=== PATIENT | female | born 1975 | race Hispanic/Latino ===

== ENCOUNTER 2019-03-06 18:46 | Observation (INO) | payer OTHER ==
--- OUTSIDE RECORDS SUMMARY | 2019-03-06 18:47 | XMS REPORT ---
:1975 Author Organization [employer] Care Team Providers Name Role Phone Medina, Na Provider Role Unavailable Allergies No Known Allergies Problems Problem Type Condition Code Onset Dates Condition Status Problem Adult BMI 50.0-59.9 kg/sq m Z68.43 Active Problem Insomnia, unspecified type G47.00 Active Problem Frequent PVCs I49.3 Active Problem Essential hypertension I10 Active Problem Vitamin D deficiency E55.9 Active Problem Shifting sleep-work schedule, G47.26 Active affecting sleep Problem Adult general medical exam Z00.00 Active Problem Obesity, morbid, BMI 50 or higher E66.01 Active Problem Seasonal allergies J30.2 Active Problem Irregular heart beat I49.9 Active Medications No Known Medications Results No Known Results Summary Purpose eClinicalWorks Submission
--- OUTSIDE RECORDS SUMMARY | 2019-03-06 18:47 | XMS REPORT ---
:1975 [facility] [address] [place] [address] Care Team Providers Name Role Phone ASYA BLACKMON Unavailable Unavailable Problems This patient has no known problems. Allergies, Adverse Reactions, Alerts This patient has no known allergies or adverse reactions. Medications This patient has no known medications. Results Test Description Test Time Test Comments Text Results Atomic Results Result Comments PET, CARDIAC 2018-10-13 Reason for FINAL REPORT PATIENT ID: PERFUSION 16:50:00 exam:->ischemic workup [id number] PROCEDURE: MULTIPLE for at least moderate Rest/Stress MYOCARDIAL STUDIES, REST pretest prob CADReason PERFUSION PET with AND STRESS for exam:->discharge regadenoson\XA9\CPT CODE: pending [id number]: chest pain, elevated troponin, obesity BMI=42.6HISTORY: Cardiac risk factors: obesity. Other cardiovascular history: No reported CAD. Recent cardiac symptoms: chest pain.PROTOCOL: Limited low-dose CT imaging was performed for attenuation correction. 39.8 mCi of Rb-82 chloride was injected iv at rest, and gated PET (positron emission tomography) images were obtained. Subsequently, 39.8 mCi of Rb-82 chloride was injected iv at expected peak pharmacologic effect, and gated PET images were obtained. PRELIMINARY STRESS TEST DATA FROM NONINVASIVE CARDIOLOGY: Pharmacologic stress was by 10-second iv infusion of 0.4 mg of regadenoson. Radiotracer was injected 30 seconds after start of stress. Heart rate was 79 beats/min at rest and 114 beats/min (64% of MPHR) at tracer injection. BP was 142/86 mmHg at rest and 144/79 mmHg at tracer injection. Stress was stopped for predetermined endpoint. The patient experienced dyspnea; treatment was not required. Preliminary ECG evaluation was not available from Cardiology at the time of this report. (Final ECG interpretation and other stress and monitoring data are reported separately by Cardiology.) IMAGING FINDINGS: Study quality is good. Images obtained after rest and stress injections show normal LV activity. LV and RV volumes appear normal. Gated images obtained at rest and with stress show normal LV wall motion and thickening. LVEF at rest is >70%. LVEF at stress is >70%. IMPRESSION: 1. Normal study. 2. Appropriate pharmacologic stress. 3. Normal myocardial perfusion. 4. Normal resting LV function. No deterioration with pharmacologic stress. 5. Normal extracardiac tracer distribution. CT images show irregular low density in the liver, consistent with fatty liver. 6. No prior study. NONINVASIVE RISK STRATIFICATION (per JACC.2012;59(9):857-881.) The above findings are considered low risk (<1% annual mortality rate) based on the following criterion:- Normal myocardial perfusion at rest or with stress. Signed: Martha Dickinson [facility]ort Verified Date/Time: 10/13/2018 16:50:50 GLOBIN A1C 2018-10-13 10:13:00 Test Item Value Reference Range Comments HEMOGLOBIN A1C (BEAKER) (test vqkv=601) 5.7 % 4.3-6.1 LIPID [id number] 09:53:00 Test Item Value Reference Range Comments TRIGLYCERIDES (BEAKER) (test 245 mg/dL Specimen slightly hemolyzed eutk=757) CHOLESTEROL (BEAKER) (test 172 mg/dL Specimen slightly hemolyzed gsqp=735) HDL CHOLESTEROL (BEAKER) (test 37 mg/dL xzqt=779) LDL CHOLESTEROL CALCULATED 86 mg/dL (BEAKER) (test mavz=545) Triglyceride Reference Range: Low Risk <150 Borderline 150- 199 High Risk 200-499 Very High Risk >=500Cholesterol Reference Range: Low Risk <200 Borderline 200-239 High Risk > 240HDL Cholesterol Reference Range: Low Risk >=60 High Risk <40LDL Cholesterol Reference Range: Optimal <100 Near Optimal 100-129 Borderline 130-159 High 160-189 Very High >=[id number] 07:09:00 Test Item Value Reference Range Comments LIPASE (BEAKER) (test tazx=331) 41 U/L 8-78 [id number] 07:09:00 Test Item Value Reference Range Comments AMYLASE (BEAKER) (test tege=752) 34 U/L 25-125 BASIC METABOLIC [id number] 07:09:00 Test Item Value Reference Range Comments SODIUM (BEAKER) (test 137 meq/L 136-145 bsiw=354) POTASSIUM (BEAKER) (test 4.1 meq/L 3.5-5.1 jgro=766) CHLORIDE (BEAKER) (test 106 meq/L 98-107 eisy=476) CO2 (BEAKER) (test 26 meq/L 22-29 uxgj=126) BLOOD UREA NITROGEN 10 mg/dL 7-21 (BEAKER) (test amtm=980) CREATININE (BEAKER) (test 0.75 mg/dL 0.57-1.25 ltdu=015) GLUCOSE RANDOM (BEAKER) 102 mg/dL 70-105 (test pzsh=014) CALCIUM (BEAKER) (test 8.6 mg/dL 8.4-10.2 keye=258) EGFR (BEAKER) (test 84 mL/min/1.73 sq m ESTIMATED GFR IS NOT lmer=2763) ACCURATE CREATININE CLEARANCE IN PREDICTING GLOMERULAR FILTRATION RATE. ESTIMATED GFR IS NOT APPLICABLE FOR DIALYSIS PATIENTS. HEPATIC FUNCTION [id number] 07:09:00 Test Item Value Reference Range Comments TOTAL PROTEIN (BEAKER) (test ibuy=706) 6.8 gm/dL 6.0-8.3 ALBUMIN (BEAKER) (test ycnf=0298) 3.6 g/dL 3.5-5.0 BILIRUBIN TOTAL (BEAKER) (test qhzx=343) 0.6 mg/dL 0.2-1.2 BILIRUBIN DIRECT (BEAKER) (test fhgc=986) 0.2 mg/dL 0.1-0.5 ALKALINE PHOSPHATASE (BEAKER) (test frkt=986) 78 U/L 40-150 AST (SGOT) (BEAKER) (test hznh=645) 16 U/L 5-34 ALT (SGPT) (BEAKER) (test kium=125) 20 U/L 6-55 CBC W/PLT COUNT & AUTO [id number] 04:57:00 Test Item Value Reference Range Comments WHITE BLOOD CELL COUNT (BEAKER) (test walb=195) 6.7 K/ L 3.5-10.5 RED BLOOD CELL COUNT (BEAKER) (test bdlx=190) 5.40 M/ L 3.93-5.22 HEMOGLOBIN (BEAKER) (test utxm=593) 15.3 GM/DL 11.2-15.7 HEMATOCRIT (BEAKER) (test rnyh=794) 48.5 % 34.1-44.9 MEAN CORPUSCULAR VOLUME (BEAKER) (test syct=802) 89.8 fL 79.4-94.8 MEAN CORPUSCULAR HEMOGLOBIN (BEAKER) (test 28.3 pg 25.6-32.2 odzv=442) MEAN CORPUSCULAR HEMOGLOBIN CONC (BEAKER) (test 31.5 GM/DL 32.2-35.5 gzof=804) RED CELL DISTRIBUTION WIDTH (BEAKER) (test 13.5 % 11.7-14.4 seun=387) PLATELET COUNT (BEAKER) (test mtdc=183) 230 K/CU MM 150-450 MEAN PLATELET VOLUME (BEAKER) (test bicg=865) 11.7 fL 9.4-12.3 NUCLEATED RED BLOOD CELLS (BEAKER) (test 0 /100 WBC 0-0 cine=055) NEUTROPHILS RELATIVE PERCENT (BEAKER) (test 51 % ivsf=481) LYMPHOCYTES RELATIVE PERCENT (BEAKER) (test 36 % efuv=967) MONOCYTES RELATIVE PERCENT (BEAKER) (test 9 % sskw=481) EOSINOPHILS RELATIVE PERCENT (BEAKER) (test 4 % vuut=936) BASOPHILS RELATIVE PERCENT (BEAKER) (test 1 % twzd=341) NEUTROPHILS ABSOLUTE COUNT (BEAKER) (test 3.39 K/ L 1.56-6.13 lvau=381) LYMPHOCYTES ABSOLUTE COUNT (BEAKER) (test 2.40 K/ L 1.18-3.74 cyik=947) MONOCYTES ABSOLUTE COUNT (BEAKER) (test 0.57 K/ L 0.24-0.36 mwax=230) EOSINOPHILS ABSOLUTE COUNT (BEAKER) (test 0.25 K/ L 0.04-0.36 ddcs=548) BASOPHILS ABSOLUTE COUNT (BEAKER) (test 0.05 K/ L 0.01-0.08 ydkm=139) IMMATURE GRANULOCYTES-RELATIVE PERCENT (BEAKER) 0 % 0-1 (test vdrh=1310) TSH/FREE T4 IF [id number] 14:43:00 Test Item Value Reference Range Comments THYROID STIMULATING HORMONE (BEAKER) (test 3.19 uIU/mL 0.35-4.94 yosw=464) TROPONIN [id number] 12:27:00 Test Item Value Reference Range Comments TROPONIN I (BEAKER) (test ourn=284) < ng/mL 0.00-0.03 Troponin I (TnI) levels must be interpreted in the context of the presenting symptoms and the clinical findings. Elevated TnI levels indicate myocardial damage, but are not specific for ischemic heart disease. Elevated TnI levels are seen in patients with other cardiac conditions (including myocarditis and congestive heart failure), and slight TnI elevations occur in patients with other conditions, including sepsis, renal failure, acidosis, acute neurological disease, and persistent tachyarrhythmia.TROPONIN [id number] 05:37:00 Test Item Value Reference Range Comments TROPONIN I (BEAKER) (test dcmu=185) 0.05 ng/mL 0.00-0.03 Troponin I (TnI) levels must be interpreted in the context of the presenting symptoms and the clinical findings. Elevated TnI levels indicate myocardial damage, but are not specific for ischemic heart disease. Elevated TnI levels are seen in patients with other cardiac conditions (including myocarditis and congestive heart failure), and slight TnI elevations occur in patients with other conditions, including sepsis, renal failure, acidosis, acute neurological disease, and persistent tachyarrhythmia.CT, CTA, [id number] 04:23:00Reason for exam:->CHEST PAINIs the patient ?->NoWhat is the patient's sedation requirement?->No SedationFINAL REPORT CT, CTA , CHEST INDICATION: CHEST PAINChest pain, back pain COMPARISON: None TECHNIQUE: Arterial phase imaging of the chest was obtained during dynamic infusion of intravenous contrast for purposes of CT angiography. Precontrast images were also obtained. Coronal andsagittal reformatted images provided. 3-D volumetric reformatted images were created at a dedicated workstation. DOSE REDUCTION: Dose modulation, iterative reconstruction, and/or weight-based adjustment of the mA/kV was utilized to reduce the radiation dose to as low as reasonably achievable. VASCULARFINDINGS:Aortic caliber: Normal.Wolf and lumen: No hematoma or luminal flap.Great vessel origins: No origin stenosis.Atherosclerosis:None.Pulmonary trunk and arteries: Normal calibers. Aortic diameters measure:2.7 cm at the ascending aorta at the level of the pulmonary trunk, 2.5 cm at the mid arch,2.0 cm at the descending aorta at the level of the pulmonary trunk, and1.8 cm at the hiatus. NONVASCULAR FINDINGS: Chest:Lungs and pleura: Bilateral lower lobe dependent atelectasis. No pleural effusions. No suspicious pulmonary nodules. No pneumothorax. Central airways: Patent.Mediastinum: No mediastinal or hilar adenopathy. The thyroid gland is unremarkable. Esophagus is normal in caliber.Heart and pericardium: Normal. Regional skeleton: No acute abnormalities. Additional findings: No suspicious subcutaneous nodules or fluid collections. No axillary adenopathy. Visualized abdomen: Hepatic steatosis otherwise visualized abdomen is unremarkable. IMPRESSION: Normal course and caliber of the thoracic aorta. No evidence for mural hematoma or dissection. No aneurysmal dilation. No acute intrathoracicabnormality. Hepatic steatosis. Signed: Spike Cooper [facility] Verified Date/Time: 10/12/2018 04:23:50 PREGNANCY SCREEN, [id number] 03:14:00 Test Item Value Reference Range Comments TEST URINE (BEAKER) (test twbm=716) Negative TROPONIN [id number] 02:22:00 Test Item Value Reference Range Comments TROPONIN I (BEAKER) (test tubw=655) < ng/mL 0.00-0.03 Troponin I (TnI) levels must be interpreted in the context of the presenting symptoms and the clinical findings. Elevated TnI levels indicate myocardial damage, but are not specific for ischemic heart disease. Elevated TnI levels are seen in patients with other cardiac conditions (including myocarditis and congestive heart failure), and slight TnI elevations occur in patients with other conditions, including sepsis, renal failure, acidosis, acute neurological disease, and persistent tachyarrhythmia.BASIC METABOLIC [id number] 02:16:00 Test Item Value Reference Range Comments SODIUM (BEAKER) (test 138 meq/L 136-145 lhat=616) POTASSIUM (BEAKER) (test 3.9 meq/L 3.5-5.1 Specimen slightly imjg=700) hemolyzed CHLORIDE (BEAKER) (test 104 meq/L 98-107 lgfa=825) CO2 (BEAKER) (test 23 meq/L 22-29 zztt=179) BLOOD UREA NITROGEN 12 mg/dL 7-21 (BEAKER) (test tmbl=320) CREATININE (BEAKER) (test 0.87 mg/dL 0.57-1.25 Specimen slightly vjum=466) hemolyzed GLUCOSE RANDOM (BEAKER) 96 mg/dL 70-105 (test excb=694) CALCIUM (BEAKER) (test 8.8 mg/dL 8.4-10.2 kanr=083) EGFR (BEAKER) (test 71 mL/min/1.73 sq m ESTIMATED GFR IS NOT kgom=3563) ACCURATE CREATININE CLEARANCE IN PREDICTING GLOMERULAR FILTRATION RATE. ESTIMATED GFR IS NOT APPLICABLE FOR DIALYSIS PATIENTS. HEPATIC FUNCTION [id number] 02:16:00 Test Item Value Reference Range Comments TOTAL PROTEIN (BEAKER) (test 7.7 gm/dL 6.0-8.3 Specimen slightly hemolyzed vwbg=092) ALBUMIN (BEAKER) (test 3.8 g/dL 3.5-5.0 Specimen slightly hemolyzed obpy=3782) BILIRUBIN TOTAL (BEAKER) (test 0.3 mg/dL 0.2-1.2 Specimen slightly hemolyzed itfi=766) BILIRUBIN DIRECT (BEAKER) (test 0.1 mg/dL 0.1-0.5 Specimen slightly hemolyzed alpc=185) ALKALINE PHOSPHATASE (BEAKER) 86 U/L 40-150 (test azza=431) AST (SGOT) (BEAKER) (test 16 U/L 5-34 Specimen slightly hemolyzed jbcu=071) ALT (SGPT) (BEAKER) (test 22 U/L 6-55 Specimen slightly hemolyzed yeny=379) CBC W/PLT COUNT & AUTO [id number] 01:54:00 Test Item Value Reference Range Comments WHITE BLOOD CELL COUNT (BEAKER) (test exkd=293) 10.5 K/ L 3.5-10.5 RED BLOOD CELL COUNT (BEAKER) (test xcck=434) 5.24 M/ L 3.93-5.22 HEMOGLOBIN (BEAKER) (test qypu=144) 15.0 GM/DL 11.2-15.7 HEMATOCRIT (BEAKER) (test djdr=161) 45.8 % 34.1-44.9 MEAN CORPUSCULAR VOLUME (BEAKER) (test pqbb=049) 87.4 fL 79.4-94.8 MEAN CORPUSCULAR HEMOGLOBIN (BEAKER) (test 28.6 pg 25.6-32.2 knii=898) MEAN CORPUSCULAR HEMOGLOBIN CONC (BEAKER) (test 32.8 GM/DL 32.2-35.5 milu=795) RED CELL DISTRIBUTION WIDTH (BEAKER) (test 13.5 % 11.7-14.4 rpve=311) PLATELET COUNT (BEAKER) (test skhc=141) 232 K/CU MM 150-450 MEAN PLATELET VOLUME (BEAKER) (test ixif=167) 12.1 fL 9.4-12.3 NUCLEATED RED BLOOD CELLS (BEAKER) (test 0 /100 WBC 0-0 hprg=710) NEUTROPHILS RELATIVE PERCENT (BEAKER) (test 62 % mgve=473) LYMPHOCYTES RELATIVE PERCENT (BEAKER) (test 26 % jryg=324) MONOCYTES RELATIVE PERCENT (BEAKER) (test 9 % gdtc=094) EOSINOPHILS RELATIVE PERCENT (BEAKER) (test 3 % iqem=253) BASOPHILS RELATIVE PERCENT (BEAKER) (test 1 % eqjq=360) NEUTROPHILS ABSOLUTE COUNT (BEAKER) (test 6.49 K/ L 1.56-6.13 ldke=870) LYMPHOCYTES ABSOLUTE COUNT (BEAKER) (test 2.78 K/ L 1.18-3.74 imwq=629) MONOCYTES ABSOLUTE COUNT (BEAKER) (test 0.89 K/ L 0.24-0.36 kzlt=894) EOSINOPHILS ABSOLUTE COUNT (BEAKER) (test 0.29 K/ L 0.04-0.36 bont=128) BASOPHILS ABSOLUTE COUNT (BEAKER) (test 0.05 K/ L 0.01-0.08 ufxy=165) IMMATURE GRANULOCYTES-RELATIVE PERCENT (BEAKER) 0 % 0-1 (test hhpz=2470) RAD, CHEST, PA OR AP, 1 [id number] 00:50:00Reason for exam:->CHEST PAINIs the patient ?->NoShould this be performed at the bedside?-> NoFINAL REPORT INDICATION: CHEST PAIN COMPARISON: None TECHNIQUE: Single frontal view of the chest. FINDINGS: Lungs and pleura: Clear lungs. No effusion.Heart and mediastinum: Normal heart size. Unremarkable mediastinal contours.Osseous structures: No acute abnormality.Other: None. IMPRESSION: No acute intrathoracic abnormality. Signed: Karissa Cochran [facility] Verified Date/Time:10/12/2018 00:50:00 Reading Location: [address] Neuro Reading Room 12: 50 AM
[2019-03-06 19:12] LABS: Absolute Lymphocytes (CBC) 2.7 K/uL (0.7-4.9); Basophils % 1.2 % (0-1.3); Hematocrit 46.5 % (36.0-45.0); Lymphocytes % 27.7 % (15.3-44.8); MPV 10.3 fL (7.6-11.3); RBC Red Blood Cell Count 5.39 M/uL (3.86-4.86)
[2019-03-06 19:17] LABS: Protime INR 0.96
[2019-03-06] MEDS ORDERED: MAGNE/ALUM HYDROXD 30 ML UCUP ONE (19:28)
[2019-03-06] MEDS ORDERED: LIDOCAINE VISCOUS 2% SOLN 15 ML UDC ONE (19:28)
[2019-03-06 19:32] LABS: ALT/SGPT 26 U/L (12-78); AST/SGOT 14 U/L (15-37); Albumin 3.3 g/dL (3.4-5.0); Alkaline Phosphatase 86 U/L (45-117); BUN Blood Urea Nitrogen 8 mg/dL (7-18); Bicarbonate 28 mmol/L (21-32); Bilirubin Direct 0.1 mg/dL (0-0.2); Bilirubin Total 0.4 mg/dL (0.2-1.0); Glucose Level 107 mg/dL (74-106); Magnesium 2.1 mg/dL (1.8-2.4); NT PRO-BNP 52 pg/mL (<125); Potassium 3.8 mmol/L (3.5-5.1); Protein, Total 7.2 g/dL (6.4-8.2); Sodium Level 139 mmol/L (136-145); Troponin (Emerg Dept Use Only) < 0.02 ng/mL (0.0-0.045)
--- NOTE | 2019-03-06 20:06 | ER ---
Nurse's Notes [facility] Name: Teresa Cuevas Age: 43 yrs Sex: Female : 1975 Arrival Date: 03/06/2019 Time: 18:48 Bed 7 Private MD: Diagnosis: Other chest pain;Essential (primary) hypertension;Dyspnea Presentation: 03/06 19:00 Presenting complaint: Patient states: she has been having chest pain since yesterday bb but it worsened today at approx 1600 pt has SOB and a couple of episodes of which she felt light-headed. Pt is worried because her father of [place] at 43. Transition of care: patient was not received from another setting of care. Onset of symptoms was March 05, 2019. Risk Assessment: Do you want to hurt yourself or someone else? Patient reports no desire to harm self or others. Initial Sepsis Screen: Does the patient meet any 2 criteria? No. Patient's initial sepsis screen is negative. Does the patient have a suspected source of infection? No. Patient's initial sepsis screen is negative. Care prior to arrival: None. 19:00 Method Of Arrival: Ambulatory bb 19:00 Acuity: VICTORINA 3 bb Triage Assessment: 19:17 General: Appears in no apparent distress. uncomfortable, Behavior is calm, cooperative. bb Pain: Complains of pain in chest Pain currently is 5 out of 10 on a pain scale. Neuro: Level of Consciousness is awake, alert, obeys commands, Oriented to person, place, time, situation. Cardiovascular: Heart tones S1 S2 present Capillary refill < 3 seconds Patient's skin is warm and dry. Rhythm is sinus rhythm. Respiratory: Respiratory effort is even, unlabored, Respiratory pattern is regular. GI: No deficits noted. No signs and/or symptoms were reported involving the gastrointestinal system. Derm: Skin is pink, warm \T\ dry. Musculoskeletal: Circulation, motion, and sensation intact. 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 - Social history:: Smoking status: Patient/guardian denies using tobacco, Patient/guardian denies using alcohol, street drugs. - Ebola Screening: : No symptoms or risks identified at this time. - Family history:: not pertinent. Screenin:21 Abuse screen: Denies threats or abuse. Nutritional screening: No deficits noted. bb Tuberculosis screening: No symptoms or risk factors identified. Fall Risk None identified. Assessment: 19:21 Reassessment: No changes from previously documented assessment. see triage assessment. bb 19:31 General: Appears in no apparent distress. uncomfortable, Behavior is calm, cooperative, jd3 appropriate for age. Pain: Complains of pain in chest Quality of pain is described as aching, pressure. Neuro: Level of Consciousness is awake, alert, obeys commands, Oriented to person, place, time, situation. Cardiovascular: Capillary refill < 3 seconds Patient's skin is warm and dry. Rhythm is sinus rhythm. Respiratory: Airway is patent Respiratory effort is even, unlabored, Respiratory pattern is regular, symmetrical, Denies cough, labored breathing. GI: No signs and/or symptoms were reported involving the gastrointestinal system. Patient currently denies diarrhea, nausea, vomiting. : No signs and/or symptoms were reported regarding the genitourinary system. EENT: No signs and/or symptoms were reported regarding the EENT system. Derm: Skin is intact, Skin is dry, Skin is normal, Skin temperature is warm. Musculoskeletal: Circulation, motion, and sensation intact. Range of motion: intact in all extremities. 20:28 Reassessment: Patient appears in no apparent distress at this time. No changes from jd3 previously documented assessment. Patient and/or family updated on plan of care and expected duration. Pain level reassessed. Patient is alert, oriented x 3, equal unlabored respirations, skin warm/dry/pink. hospitalist at bedside discussing plan of care. 21:19 Reassessment: Patient appears in no apparent distress at this time. No changes from jd3 previously documented assessment. Patient and/or family updated on plan of care and expected duration. Pain level reassessed. Patient is alert, oriented x 3, equal unlabored respirations, skin warm/dry/pink. 22:15 Reassessment: attempted report, reported that the nurse was busy. jd3 22:40 Reassessment: Patient appears in no apparent distress at this time. Patient and/or jd3 family updated on plan of care and expected duration. Pain level reassessed. Patient is alert, oriented x 3, equal unlabored respirations, skin warm/dry/pink. awaiting nurse to be free for report Patient states feeling better. 23:03 Reassessment: report called to Mami SARGENT for ICU room 8. bb Vital Signs: 19:17 BP 160 / 94; Pulse 74; Resp 18 S; Pulse Ox 99% on R/A; Pain 5/10; bb 20:29 Pulse 77; Resp 20 S; Pulse Ox 100% on R/A; jd3 21:19 BP 127 / 79; Pulse 78; Resp 16 S; Pulse Ox 98% on R/A; jd3 22:41 BP 144 / 86; Pulse 73; Resp 18 S; Pulse Ox 98% on R/A; jd3 ED Course: 18:48 Patient arrived in ED. iw 19:00 EKG done, by ED staff. em1 19:00 Initial lab(s) drawn, by me, sent to lab. Inserted saline lock: 20 gauge in right bb antecubital area, using aseptic technique. Blood collected. 19:00 Arm band placed on Patient placed in an exam room, on a stretcher, on machine shorthand teacher, bb on pulse oximetry. EKG completed in triage. Results shown to MD. 19:02 Yamilet Goodson, ROSETTA is Primary Nurse. bb 19:17 Triage completed. bb 19:18 XRAY Chest (1 view) In Process Unspecified. EDMS 19:21 Patient has correct armband on for positive identification. Placed in gown. Bed in low bb position. Call light in reach. Side rails up X 1. material expediter on. Pulse ox on. NIBP on. 19:23 Bill Blanchard MD is Attending Physician. toy 20:03 Sherman Tomlin MD is Hospitalizing Provider. toy 20:44 CT Chest For PE Angio In Process Unspecified. EDMS 23:04 No provider procedures requiring assistance completed. Patient admitted, IV remains in bb place. Administered Medications: 19:20 Drug: GI Cocktail without - (Maalox Suspension 30 ml, Lidocaine Liquid 2 % 15 jd3 ml) Route: PO; 20:20 Follow up: Response: No adverse reaction jd3 20:22 Drug: Aspirin Chewable Tablet 162 mg Route: PO; jd3 21:21 Follow up: Response: No adverse reaction jd3 20: Drug: Lovenox 100 mg Route: Sub-Q; Site: abdomen; jd3 21:21 Follow up: Response: No adverse reaction jd3 20: Drug: Pepcid 20 mg Route: IVP; Site: right antecubital; jd3 21:21 Follow up: Response: No adverse reaction jd3 Outcome: 20:04 Decision to Hospitalize by Provider. toy 23:04 Admitted to ICU accompanied by [facility], via stretcher, room 8, with chart, Report called bb to Mami SARGENT 23:04 Condition: stable 23:08 Patient left the ED. jd3 Signatures: Dispatcher [employer] EDMS Bill Blanchard MD MD cha Ballard, Brenda, RN RN Dolly George, RN James Wesley Abhishek Helm RN RN jd3 Corrections: (The following items were deleted from the chart) 23:08 22:41 Pulse 73bpm; Resp 18bpm; Spontaneous; Pulse Ox 98% RA; jd3 jd3
--- NOTE | 2019-03-06 20:06 | EDPHYS ---
Physician Documentation [facility] Name: Teresa Cuevas Age: 43 yrs Sex: Female : 1975 Arrival Date: 03/06/2019 Time: 18:48 Bed 7 Private MD: ED Physician Bill Blanchard HPI: 03/06 20:00 This 43 yrs old Female presents to ER via Ambulatory with complaints of chest toy pain and sob. 20:00 The patient has shortness of breath at rest, with light activity. Onset: The toy symptoms/episode began/occurred just prior to arrival, today. Duration: The symptoms are continuous, and are steadily getting worse. The patient's shortness of breath is aggravated by nothing, is alleviated by nothing. The patient or guardian reports chest pain that is located primarily in the anterior chest wall, bilaterally. Onset: just prior to arrival, today. The pain does not radiate. 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 - Social history:: Smoking status: Patient/guardian denies using tobacco, Patient/guardian denies using alcohol, street drugs. - Ebola Screening: : No symptoms or risks identified at this time. - Family history:: not pertinent. ROS: 20:00 Constitutional: Negative for fever, chills, and weight loss, Eyes: Negative for injury, toy pain, redness, and discharge, ENT: Negative for injury, pain, and discharge, Neck: Negative for injury, pain, and swelling, Abdomen/GI: Negative for abdominal pain, nausea, vomiting, diarrhea, and constipation, Back: Negative for injury and pain, : Negative for injury, bleeding, discharge, and swelling, MS/Extremity: Negative for injury and deformity, Skin: Negative for injury, rash, and discoloration, Neuro: Negative for headache, weakness, numbness, tingling, and seizure, Psych: Negative for depression, anxiety, suicide ideation, homicidal ideation, and hallucinations, Allergy/Immunology: Negative for hives, rash, and allergies, Endocrine: Negative for neck swelling, polydipsia, polyuria, polyphagia, and marked weight changes, Hematologic/Lymphatic: Negative for swollen nodes, abnormal bleeding, and unusual bruising. 20:00 Cardiovascular: Positive for chest pain. 20:00 Respiratory: Positive for shortness of breath, at rest. Exam: 20:00 Constitutional: This is a well developed, well nourished patient who is awake, alert, toy and in no acute distress. Head/Face: Normocephalic, atraumatic. Eyes: Pupils equal round and reactive to light, extra-ocular motions intact. Lids and lashes normal. Conjunctiva and sclera are non-icteric and not injected. Cornea within normal limits. Periorbital areas with no swelling, redness, or edema. ENT: Nares patent. No nasal discharge, no septal abnormalities noted. Tympanic membranes are normal and external auditory canals are clear. Oropharynx with no redness, swelling, or masses, exudates, or evidence of obstruction, uvula midline. Mucous membranes moist. Neck: Trachea midline, no thyromegaly or masses palpated, and no cervical lymphadenopathy. Supple, full range of motion without nuchal rigidity, or vertebral point tenderness. No Meningismus. Chest/axilla: Normal chest wall appearance and motion. Nontender with no deformity. No lesions are appreciated. Cardiovascular: Regular rate and rhythm with a normal S1 and S2. No gallops, murmurs, or rubs. Normal PMI, no JVD. No pulse deficits. Respiratory: Lungs have equal breath sounds bilaterally, clear to auscultation and percussion. No rales, rhonchi or wheezes noted. No increased work of breathing, no retractions or nasal flaring. Abdomen/GI: Soft, non-tender, with normal bowel sounds. No distension or tympany. No guarding or rebound. No evidence of tenderness throughout. Back: No spinal tenderness. No costovertebral tenderness. Full range of motion. Female : Normal external genitalia. Skin: Warm, dry with normal turgor. Normal color with no rashes, no lesions, and no evidence of cellulitis. MS/ Extremity: Pulses equal, no cyanosis. Neurovascular intact. Full, normal range of motion. Neuro: Awake and alert, GCS 15, oriented to person, place, time, and situation. Cranial nerves II-XII grossly intact. Motor strength 5/5 in all extremities. Sensory grossly intact. Cerebellar exam normal. Normal gait. Psych: Awake, alert, with orientation to person, place and time. Behavior, mood, and affect are within normal limits. 20:00 Musculoskeletal/extremity: DVT Exam: No signs of deep vein thrombosis. no pain, no swelling, no tenderness, negative Homans' sign noted on exam, no appreciated bluish discoloration, no erythema, no increased warmth. Vital Signs: 19:17 BP 160 / 94; Pulse 74; Resp 18 S; Pulse Ox 99% on R/A; Pain 5/10; bb 20:29 Pulse 77; Resp 20 S; Pulse Ox 100% on R/A; jd3 21:19 BP 127 / 79; Pulse 78; Resp 16 S; Pulse Ox 98% on R/A; jd3 22:41 BP 144 / 86; Pulse 73; Resp 18 S; Pulse Ox 98% on R/A; jd3 MDM: 19:23 Patient medically screened. [facility] 20:03 Data reviewed: vital signs, nurses notes, lab test result(s), EKG, radiologic studies, [facility] CT scan, plain films. 03/06 19:01 Order name: Basic Metabolic Panel; Complete Time: 19:58 ar5 03/06 19:01 Order name: CBC with Diff; Complete Time: 19:58 ct5 03/06 19:01 Order name: LFT's; Complete Time: 19:58 ct5 03/06 19:01 Order name: Magnesium; Complete Time: 19:58 ct5 03/06 19:01 Order name: NT PRO-BNP; Complete Time: 19:58 ct5 03/06 19:01 Order name: PT-INR; Complete Time: 19:58 ct5 03/06 19:01 Order name: Troponin (emerg Dept Use Only); Complete Time: 19:58 ct5 03/06 20:38 Order name: Thyroid Stimulating Hormone EDMS 03/06 20:38 Order name: CBC with Automated Diff EDMS 03/06 20:38 Order name: CBC with Automated Diff EDMS 03/06 20:38 Order name: CKMB Creatine Kinase MB EDMS 03/06 20:39 Order name: CKMB Creatine Kinase MB EDMS 03/06 20:39 Order name: CKMB Creatine Kinase MB EDMS 03/06 20:39 Order name: CKMB Creatine Kinase MB [facility] 03/06 19:01 Order name: XRAY Chest (1 view); Complete Time: 20:30 [facility] 03/06 20:00 Order name: CT Chest For PE Angio [facility] 03/06 20:39 Order name: Comprehensive Metabolic Panel [facility] 03/06 20:39 Order name: Comprehensive Metabolic Panel [facility] 03/06 20:39 Order name: Lipid Profile [facility] 03/06 20:39 Order name: Lipid Profile [facility] 03/06 20:39 Order name: Magnesium [facility] 03/06 20:39 Order name: Magnesium [facility] 03/06 20:39 Order name: Phosphorus [facility] 03/06 20:39 Order name: Phosphorus [facility] 03/06 20:39 Order name: Troponin I [facility] 03/06 20:39 Order name: Troponin I [facility] 03/06 20:39 Order name: Troponin I [facility] 03/06 20:39 Order name: Troponin I [facility] 03/06 21:30 Order name: Troponin (emerg Dept Use Only) [facility] 03/06 19:01 Order name: EKG; Complete Time: 19:02 [facility] 03/06 19:01 Order name: Cardiac monitoring; Complete Time: 19:02 [facility] 03/06 19:01 Order name: EKG - Nurse/Tech; Complete Time: 19:02 [facility] 03/06 19:01 Order name: IV Saline Lock; Complete Time: 19:02 [facility] 03/06 19:01 Order name: Labs collected and sent; Complete Time: 19:02 [facility] 03/06 19:01 Order name: O2 Per Protocol; Complete Time: 19:02 [facility] 03/06 19:01 Order name: O2 Sat Monitoring; Complete Time: 19:02 [facility] 03/06 20:38 Order name: CONS Physician Consult [facility] 03/06 20:38 Order name: Heart Healthy EDIN Administered Medications: 19:20 Drug: GI Cocktail without - (Maalox Suspension 30 ml, Lidocaine Liquid 2 % 15 jd3 ml) Route: PO; 20:20 Follow up: Response: No adverse reaction jd3 20:22 Drug: Aspirin Chewable Tablet 162 mg Route: PO; jd3 21:21 Follow up: Response: No adverse reaction jd3 20:22 Drug: Lovenox 100 mg Route: Sub-Q; Site: abdomen; jd3 21:21 Follow up: Response: No adverse reaction jd3 20:22 Drug: Pepcid 20 mg Route: IVP; Site: right antecubital; jd3 21:21 Follow up: Response: No adverse reaction jd3 Disposition: 03/06/19 20:04 Hospitalization ordered by Sherman Tomlin for Observation. Preliminary diagnosis are Other chest pain, Essential (primary) hypertension, Dyspnea. - Bed requested for Intensive Care Unit. - Status is Observation. jd3 - Condition is Fair. - Problem is new. - Symptoms have improved. UTI on Admission? No Signatures: Dispatcher [employer] EDMS Bill Blanchard MD MD cha Ballard, Brenda RN Abhishek Marie RN RN jd3 Robles, Autumn ar5 Corrections: (The following items were deleted from the chart) 21:45 20:04 Hospitalization Ordered by Sherman Tomlin MD for Observation. Preliminary ar5 diagnosis is Other chest pain; Essential (primary) hypertension; Dyspnea. Bed requested for Telemetry/MedSurg (observation). Status is Observation. Condition is Fair. Problem is new. Symptoms have improved. UTI on Admission? No. toy 23:08 21:45 03/06/2019 20:04 Hospitalization Ordered by Sherman Tomlin MD for Observation. jd3 Preliminary diagnosis is Other chest pain; Essential (primary) hypertension; Dyspnea. Bed requested for Intensive Care Unit. Status is Observation. Condition is Fair. Problem is new. Symptoms have improved. UTI on Admission? No. ar5
--- NOTE | 2019-03-06 20:09 | RAD REPORT ---
EXAM DESCRIPTION: RAD - Chest Single View - 03/06/2019 7:20 pm CLINICAL HISTORY: Chest pain COMPARISON: June 2013 TECHNIQUE: AP portable chest image was obtained 1917 hours . FINDINGS: Low lung volumes noted. No acute lung parenchymal process seen. Heart and vasculature are normal. No measurable pleural effusion and no pneumothorax. No acute bony abnormality seen. No acute aortic findings suspected. IMPRESSION: No acute cardiopulmonary process. No significant interval change.
[2019-03-06] MEDS ORDERED: ENOXAPARIN 100 MG/ML SYR SQ ONE (20:17)
[2019-03-06] MEDS ORDERED: ASPIRIN 81 MG CHEWABLE TABLET ONE (20:17)
[2019-03-06] MEDS ORDERED: FAMOTIDINE 20 MG/2 ML VIAL IV ONE (20:17)
[2019-03-06] MEDS ORDERED: ONDANSETRON 4 MG/2 ML VIAL IV PRN (20:33)
[2019-03-06] MEDS ORDERED: ACETAMINOPHEN 500 MG TAB PO PRN (20:33)
[2019-03-06] MEDS ORDERED: MAGNES/ALUMIN/SIMET 30ML UCUP PO PRN (20:36)
--- NOTE | 2019-03-06 20:44 | P.HP ---
Certification for Inpatient Patient admitted to: Observation With expected LOS: <2 Midnights Patient will require the following post-hospital care: None Practitioner: I am a practitioner with admitting privileges, knowledge of patient current condition, hospital course, and medical plan of care. Services: Services provided to patient in accordance with Admission requirements found in Title 42 Section 412.3 of the Code of Federal Regulations Patient History Date of Service: 03/06/19 Reason for admission: Chest pain History of Present Illness: 43 year old female with past medical history of hypertension came to ER with chest pain which has been going on for the last 1 day. The pain is located retrosternally , with no radiation , pressure-like symptom , 3/10 in severity. Denies any diaphoresis. No nausea vomiting or diarrhea. No changes with movements or exertion . No fever no chills. Patient had a stress test and echocardiogram done a month ago and was normal has a strong family history of CAD with father having had bypass surgery at age of 43. Patient is being admitted for further management of chest pain to rule out ACS Allergies No Known Allergies Allergy (Verified 08/07/12 07:52) Home medications list reviewed: Yes Home Medications: Folic Acid [Folic Acid*] 1 PO DAILY 08/07/12 Pnv Comb.no58/Iron Bisgly/FA [ Capsule] 1 PO DAILY 08/07/12 Ibuprofen [Motrin] 600 mg PO Q6HR PRN #0 tablet 08/09/12 - Past Medical/Surgical History Past Medical History: Reviewed- Non-Contributory -: Hypertension Past Surgical History: Reviewed- Non-Contributory -: [facility] - section 07/30/2009 - Family History Family History: Reviewed- Non-Contributory - Family History Father -: Heart disease - Social History Smoking Status: Never smoker Alcohol use: No CD- Drugs: No Caffeine use: Yes Review of Systems 10-point ROS is otherwise unremarkable General: Unremarkable Cardiovascular: Chest Pain Physical Examination - Vital Signs Temperature: 98.1 F Blood Pressure: 156/88 Pulse: 76 Respirations: 18 - Physical Exam General: Alert, In no apparent distress, Oriented x3 HEENT: Atraumatic, Normocephalic Neck: Supple, 2+ carotid pulse no bruit Respiratory: Clear to auscultation bilaterally, Normal air movement Cardiovascular: Normal pulses, Regular rate/rhythm Capillary refill: <2 Seconds Gastrointestinal: Soft and benign, W/out hepatosplenomegaly Musculoskeletal: No clubbing, No swelling Integumentary: No rashes, No breakdown Neurological: Normal speech, Normal strength at 5/5 x4 extr Lymphatics: No axilla or inguinal lymphadenopathy Urinary: Other (No Bladder distention) External genitalia: Deferred Rectal: Deferred - Studies Laboratory Data (last 24 hrs) 03/06/19 19:00: PT 11.3, INR 0.96 03/06/19 19:00: WBC 9.7, Hgb 15.3 H, Hct 46.5 H, Plt Count 204 03/06/19 19:00: Sodium 139, Potassium 3.8, BUN 8, Creatinine 1.08, Glucose 107 H , Magnesium 2.1, Total Bilirubin 0.4, AST 14 L, ALT 26, Alkaline Phosphatase 86 Assessment and Plan - Problems (Diagnosis) (1) Chest pain Current Visit: Yes Status: Acute (2) Hypertension Current Visit: Yes Status: Chronic - Plan Chest pain to rule out ACS Hypertension Family history of CAD Plan Monitor under telemetry Trend cardiac enzymes Cardiology consult Patient had a stress test and an echocardiogram 4 months ago which was normal Continue home medications and titrate as needed Antihypertensives were monitored and titrated start on PPI empirically GI/DVT prophylaxis - Advance Directives Does patient have a Living Will: No Does patient have a Durable POA for Healthcare: No Time Spent Managing Pts Care (In Minutes): 43
[2019-03-06] MEDS ORDERED: ATORVASTATIN 10 MG TAB PO SCH (21:00)
--- NOTE | 2019-03-06 21:21 | RAD REPORT ---
EXAM DESCRIPTION: CT - Chest For Pe Angio - 03/06/2019 8:43 pm CLINICAL HISTORY: Cough;Chest pain COMPARISON: Chest Single View dated 03/06/2019 TECHNIQUE: Dynamically enhanced 3 mm thick images of the chest were obtained during administration o f approximately 150mL Isovue 370 IV contrast. Coronal and oblique MIP reconstruction images were gene rated and reviewed. Exam utilizes a protocol to evaluate the pulmonary arterial tree. All CT scans are performed using dose optimization technique as appropriate and may include automated exposure control or mA/KV adjustment according to patient size. FINDINGS: No pulmonary emboli are identified. The aorta as imaged shows no acute or suspicious finding. No pericardial thickening or effusion. No infiltrate or mass in the lung parenchyma. No pleural effusion or pleural thickening. Minimal atel ectasis changes present. No mediastinal or hilar suspicious masses. No chest wall masses or abnormal axillary lymphadenopathy. IMPRESSION: No pulmonary emboli identified. No other significant or suspicious findings.
[2019-03-06 21:27] LABS: CKMB Creatine Kinase MB < 1.0 ng/mL (0.3-3.6); Troponin I < 0.02 ng/mL (0.0-0.045)
[2019-03-06] MEDS: MORPHINE 2 MG/ML SYR IV PRN (23:50)
[2019-03-07 00:18] VITALS: O2SAT 100; BMI 53.3
[2019-03-07 04:55] LABS: Absolute Lymphocytes (CBC) 2.5 K/uL (0.7-4.9); Basophils % 0.6 % (0-1.3); Hematocrit 43.7 % (36.0-45.0); MPV 10.5 fL (7.6-11.3); RBC Red Blood Cell Count 5.02 M/uL (3.86-4.86)
[2019-03-07 05:32] LABS: ALT/SGPT 23 U/L (12-78); AST/SGOT 12 U/L (15-37); Alkaline Phosphatase 75 U/L (45-117); BUN Blood Urea Nitrogen 10 mg/dL (7-18); Bicarbonate 27 mmol/L (21-32); Bilirubin Total 0.4 mg/dL (0.2-1.0); CKMB Creatine Kinase MB < 1.0 ng/mL (0.3-3.6); Glucose Level 111 mg/dL (74-106); HDL Cholesterol 32 mg/dL (40-60); LDL Cholesterol, Calculated ND (<130); Magnesium 2.2 mg/dL (1.8-2.4); Potassium 3.7 mmol/L (3.5-5.1); Protein, Total 6.5 g/dL (6.4-8.2); Sodium Level 139 mmol/L (136-145); Troponin I < 0.02 ng/mL (0.0-0.045)
[2019-03-07 05:51] LABS: LDL, Direct 97 mg/dL (100-129)
[2019-03-07] MEDS ORDERED: PANTOPRAZOLE 40MG TABLET PO SCH (06:30)
[2019-03-07] MEDS: MORPHINE 2 MG/ML SYR IV PRN (08:30)
[2019-03-07] MEDS ORDERED: POTASSIUM CL SA 10 MEQ TAB PO ONE (09:00)
[2019-03-07] MEDS ORDERED: ASPIRIN EC 81 MG TAB PO SCH (09:00)
[2019-03-07] MEDS ORDERED: NITROGLYCERIN 0.4 MG/TAB SL PRN (10:56)
[2019-03-07] MEDS ORDERED: MORPHINE 2 MG/ML SYR IV PRN (10:57)
[2019-03-07 13:37] VITALS: TEMP 98.4
[2019-03-07 13:48] LABS: CKMB Creatine Kinase MB < 1.0 ng/mL (0.3-3.6); Troponin I < 0.02 ng/mL (0.0-0.045)
--- NOTE | 2019-03-07 13:48 | EKG ---
Test Date: 2019-03-06 Test Time: 18:49:38 Water Safety Instructor: WILLA MEASUREMENT RESULTS: Intervals: Rate: 76 MT: 154 QRSD: 80 QT: 384 QTc: 432 [place]: P: 56 MT: 154 QRS: 22 T: 47 INTERPRETIVE STATEMENTS: Normal sinus rhythm Normal ECG Compared to ECG 03/24/2009 20:23:34 No significant changes Electronically Signed On 03-07-19 13:46:31 STRADDLE BUG OPERATOR by Osmel Agrawal
[2019-03-07 15:05] VITALS: BP 130/81
--- NOTE | 2019-03-08 00:27 | CON ---
Date of Consultation: 03/07/2019 Ms. Cuevas is 43, was admitted with chest pain to Dr. Easton's service on 03/06/2019. I saw the patie nt on 03/07/2019. Reason For Consultation: Chest pain. History Of Present Illness: Ms. Cuevas is 43, has a history of hypertension for which she takes Lopr essor, has a very strong family history of heart disease. She has dyslipidemia. Her triglyceride is 463. She has obesity. She weighs 291 pounds, came in with atypical chest pain, mid epigastric, mid sternal, radiating to the back, lasting for hours, occasionally with exertion, sometimes without exer tion. Has had negative cardiac workup a few months ago as far as echo and stress test, but continues to have pain. Denied nausea, vomiting, diaphoresis, PND, orthopnea, pedal edema, palpitations, or s yncope. She is very concerned about her chest pain because of her strong family history. Her family had a heart attacks in their 40s. Past Medical History: As stated above. Allergies: NONE. Review of Systems: Negative. Social History: Negative. Family History: Strongly positive for CAD. Home Medications: Include Lopressor. Physical Examination: General: Ms. Cuevas weighed 291 pounds, very pleasant, no acute distress. Vital Signs: Stable. Afebrile. HEENT: Negative. Neck: Supple without any bruit, lymphadenopathy, JVD, or thyromegaly. Chest: Clear to auscultation and percussion. Cardiac: Exam revealed a regular rhythm and rate. No murmurs, gallops, or rubs. Abdomen: Benign. Extremities: Revealed no clubbing, cyanosis, or edema. Diagnostic Data: All within normal limit. Impression And Plan: 1.Hypertension. 2.Dyslipidemia, high triglyceride. She may need to be on Tricor. 3.Obesity. 4.Strong family history. 5.Atypical chest pain, still concerning, although she has ruled out with negative cardiac workup, in cluding echoes and stress test. I think if Ms. Cuevas continues to have pain, I think she needs to h ave a catheterization to define her coronary anatomy. This was suggested to her. For now I think antoine loja needs to be on proton pump inhibitors and see if that works first. She otherwise can go home and I will see her in the office in the near future. NB/MODL Voice ID: [id number] Report ID: [id number]
--- NOTE | 2019-03-08 04:04 | DS ---
Date of Discharge: 03/07/2019 Space Engineer: Dr. Agrawal with Cardiology. Procedures: None. Admitting Diagnoses: 1.Chest pain. 2.Essential hypertension. Discharge Diagnoses: 1.Atypical chest pain, acute coronary syndrome ruled out. 2.Essential hypertension. 3.Hypertriglyceridemia. 4.Morbid obesity, BMI 53. Hospital Course: Patient is a 43-year-old female, past medical history of hypertension, morbid obesi ty, comes in with chest pain. Patient was admitted due to her risk factors and strong family history of heart disease, father having bypass surgery at the age of 43. Patient was admitted for further e valuation. Her cardiac enzymes were negative x3. ACS was ruled out. Her cholesterol panel showed e levated triglyceride levels at 463. LDL was below 100. White blood cell count was normal. She had a mildly elevated hemoglobin of 15.3, likely due to dehydration. Imaging studies including chest x-r ay and CT scan PE protocol did not show any suspicious findings. There was no PE. EKG did not show any acute changes. Patient was seen by Dr. Agrawal and was cleared for discharge to follow up as an outpatient. Patient was counseled regarding her triglyceride levels as well as her weight. She will likely benefit from bariatric surgery due to BMI greater than 40 for weight loss. Patient does repo rt some symptoms of acid reflux disease; however, states that [id number]-[id number] proton pump inhibitors have not improved her condition. However, she has not taken these on a chronic basis, never had an EGD. I recommend patient to follow up with a GI doctor and have endoscopy done to rule out esophagit is or any other GI symptomatology, which may mimic chest pain. Patient denies any anxiety. Patient has had a stress test previously done at [facility], which was negative. Patient was then cleared fo r discharge. She was sent home in a stable condition. Activity: As tolerated. Medications: As per medication reconciliation list. Instructions: Return to ER for worsening condition. Followup: Follow up with primary care physician in 2-3 days. Follow up with household cook, Dr. Lamar mccarthy, in 2 weeks. Diet: Heart healthy. Physical Examination: General: Awake, alert, oriented x3, not in any acute distress. CV: S1, S2. Respiratory: Moving air well bilaterally. Abdomen: Soft, nontender, nondistended. Positive bowel sounds. Extremities: No clubbing, cyanosis, or edema. Neuro: Nonfocal. SA/MODL Voice ID: [id number] Report ID: [id number]
[2019-03-08] MEDS ORDERED: METOPROLOL TAR 50 MG TAB PO SCH (09:00)
--- NOTE | 2019-03-09 11:49 | EKG ---
Test Date: 2019-03-07 Test Time: 11:06:39 Gem Setter: STEPHANIE MEASUREMENT RESULTS: Intervals: Rate: 92 WY: 146 QRSD: 76 QT: 380 QTc: 469 [place]: P: 45 WY: 146 QRS: 18 T: 39 INTERPRETIVE STATEMENTS: Normal sinus rhythm Cannot rule out Anterior infarct, age undetermined Abnormal ECG Compared to ECG 03/06/2019 18:49:38 Myocardial infarct finding now present Electronically Signed On 03-09-19 11:42:43 CAR AND YARD SUPERVISOR by Osmel Agrawal
== END 2019-03-07 15:20 | disposition home or self-care (01) ==
LOC: ER 18:46 → ERHOLD 20:34 → 3RD-ICU 22:58
PROVIDERS: ADMIT Family Medicine; ATTEND Family Medicine
DX: R07.89 Other chest pain (principal); I10 Essential (primary) hypertension; E78.1 Pure hyperglyceridemia; E66.01 Morbid (severe) obesity due to excess calories; Z68.43 Body mass index [BMI] 50.0-59.9, adult
CPT/HCPCS: 93005 ×2; 85025 ×2; 80048; 36415 ×2; 83721; 83735 ×2; 84100; 85610; 80061; 80076; 84443; 84484 ×4; 82553 ×3; 80053; 83880; 71275; 71045; 96372; 96374; 99285; Q9967; J1650; J2270 ×2; G0378 ×2

== ENCOUNTER 2020-02-16 01:02 | Emergency (ER) | payer OTHER ==
--- OUTSIDE RECORDS SUMMARY | 2020-02-16 01:04 | XMS REPORT | Clinical Summary ---
:1975 Author Organization [facility] Address [address] [place] [id number] Care Team Providers Name Role Phone Unavailable Primary Care Provider Unavailable Allergies No Known Allergies Medications Medication Sig Dispensed Refills Start Date End Date Status metoprolol (TOPROL-XL) Take 50 mg by 0 Active 50 MG 24 hr tablet mouth daily. Active Problems Problem Noted Date Elevated troponin 10/12/2018 Chest pain, unspecified type 10/12/2018 Social History Tobacco Use Types Packs/Day Years Used Date Never Smoker Smokeless Tobacco: Never Used Alcohol Use Drinks/Week oz/Week Comments No Alcohol Habits Answer Date Recorded How often do you have a drink containing alcohol? Never 10/11/2018 How many drinks containing alcohol do you have on a typical Not asked day when you are drinking? How often do you have six or more drinks on one occasion? No t asked Sex Assigned at Date Recorded Not on file Last Filed Vital Signs Not on file Plan of Treatment Health Maintenance Due Date Last Done Comments CERVICAL CANCER SCREENING PAP ONLY (Age 21-65) 1996 INFLUENZA VACCINE (#1) 2019 LIPID PANEL 10/13/2021 10/13/2018 Results Not on fileafter 02/15/2019 Insurance Payer Benefit Plan / Subscriber ID Effective Dates Phone Addre ss Type Group CIGNA - MGD CIGNA [id number] 2018-Present HMO/POS CARE HMO/POS/OPEN ACCESS Advance Directives For more information, please contact: [phone] Code Status Date Activated Date Inactivated Comments Full Code 10/12/2018 9:38 AM 10/13/2018 8:54 PM This code status was determined by: Patient
--- OUTSIDE RECORDS SUMMARY | 2020-02-16 01:05 | XMS REPORT | Continuity of Care Document ---
:1975 Author Organization [facility] t Address [address] [place] [address] Care Team Providers Name Role Phone LISETTE BLACKMON Attending Clinician Unavailable ANNEL RUDD Admitting Clinician Unavailable Problems Condition Condition Condition Status Onset Resolution Last Treating Co mments Source Name Details Category Date Date Treatment Clinician Date Elevated Elevated Disease [facility] Chest Chest Disease Active [facility] pain, pain, 10-12 [facility] - unspecifie unspecifie 00:00: Me dical d type d type 00 Center Adult BMI Adult BMI Problem Active [facility] 50.0-59.9 50.0-59.9 Luke s - kg/sq m kg/sq m [facility] ent Clinics Insomnia, Insomnia, Problem Active [facility] unspecifie unspecifie Devorah kes - d type d type [facility] Clinics Frequent Frequent Problem Active [facility] PVCs PVCs [facility] - [facility] ent Clinics Essential Essential Problem Active [facility] hypertensi hypertensi Devorah kes - on on [facility] ent [facility] Vitamin D Vitamin D Problem Active [facility] deficiency deficiency Devorah kes - [facility] ent [facility] Shifting Shifting Problem Active [facility] sleep-work sleep-work Devorah kes - schedule, schedule, Eliel joleen affecting affecting l sleep sleep [facility] Adult Adult Problem Active [facility] general general [facility] - medical medical [facility]oria exam exam l [facility] Obesity, Obesity, Problem Active [facility] morbid, morbid, [facility] - BMI 50 or BMI 50 or Eliel joleen higher higher l [facility] Seasonal Seasonal Problem Active [facility] allergies allergies Luke [facility] - [facility] Irregular Irregular Problem Active [facility] heart beat heart beat [facility] Allergies, Adverse Reactions, Alerts This patient has no known allergies or adverse reactions. Social History Social Habit Start Date Stop Date Quantity Comments Source History [facility] - Alcohol Std Drinks [facility] History [facility] - Alcohol Binge Medical Naveen ter Sex Assigned At [facility] St Devorah kes [facility] Tobacco use and 2018-10-11 2018-10-[address] [facility] Devorah kes - exposure 00:00:00 00:00:00 [facility] Alcohol intake 2018-10-11 2018-10-[address] [facility] - 00:00:00 00:00:00 non-drinker of Medical Ce nter alcohol (finding) History [facility] 2018-10-11 2018-10-[address] [facility] - Alcohol Frequency 00:00:00 00:00:00 [facility] Smoking Status Start Date Stop Date Source Never smoker [facility] Medications Ordered Filled Start Stop Current Ordering Indication Dosage Frequency Signature Comments Components Source Medication Medication Date Date Medication? Clinician (SIG) Name Name metoprolol Yes 50mg QD Take [address] (TOPROL-XL) 10-13 by mouth Luke s - 50 MG 24 hr 18:54: daily. Medi yvrose tablet [address] [place] [address] Metoprolol Metoprolol Yes Na [place] [address] Succinate Succinate [facility] - ER ER [facility] [place] Procedures This patient has no known procedures. Plan of Care Planned Activity Planned Date Details Comments Source Future Scheduled 2021-10-[address] [facility] - Test 00:00:00 (procedure) [code = [facility] [id number]] Future Scheduled 2019-11-[address] [facility] - Test 00:00:00 (#1) [code = [facility] INFLUENZA VACCINE (#1)] Future Scheduled [address] [facility] - Test 00:00:00 malignant neoplasm Medical C enter of cervix (procedure) [code = 173035698] Encounters Start End Encounter Admission Attending Care Care Encounter Source Date/Time Date/Time Type Type Clinicians Facility Department ID 2019-06-26 2019-06-26 Outpatient Sherman Whitakert [id number] [address] 12:21:00 12:21:00 [facility] 2019-04-10 2019-04-10 Outpatient Sherman Whitakert [id number] 09:40:00 09:40:00 [facility] 2018-11-05 2018-11-05 Outpatient Sherman Whitakert [id number] 13:37:00 13:37:00 [facility] 2018-09-03 2018-09-03 Outpatient Sherman Whitakert [id number] 16:20:00 16:20:00 [facility] Results Test Description Test Time Test Comments Results Result [facility] e Comments PET, CARDIAC 2018-10-13 Reason for FINAL REPORT PATIENT PERFUSION MULTIPLE 16:50:00 exam:->ischemic ID: [id number] STUDIES, REST AND workup for at PROCEDURE: STRESS least moderate Rest/Stress pretest prob MYOCARDIAL PERFUSION CADReason for PET with exam:->discharg regadenoson\XA9\CPT e pending CODE: [id number]: chest pain, elevated troponin, obesity BMI=42.6HISTORY: Cardiac [...] No prior study. NONINVASIVE RISK STRATIFICATION (per JACC.2012;59(9):857- 881.) The above findings are considered low risk (<1% annual mortality rate) based on the following criterion:- Normal myocardial perfusion at rest or with stress. Signed: Martha Dickinson [facility] Verified Date/Time: 10/13/2018 16:50:50 GLOBIN A1C 2018-10-13 10:13:00 Test Item Value Reference Range Interpretation Comme nts HEMOGLOBIN A1C ([place]) (test code = 368) 5.7 % 4.3-6.1 LIPID [id number] 09:53:00 Test Item Value Reference Range Interpretation Comments TRIGLYCERIDES (Broadband VoiceAKER) 245 mg/dL Speci men slightly (test code = 540) hemolyzed CHOLESTEROL (Broadband VoiceAKER) 172 mg/dL Specime n slightly (test code = 631) hemolyzed HDL CHOLESTEROL (Broadband VoiceAKER) 37 mg/dL (test code = 976) LDL CHOLESTEROL 86 mg/dL CALCULATED ([place]) (test code = 633) Triglyceride Reference Range: Low Risk <150 Borderline 150-199 High Risk 200-499 Very High Risk >=500Cholesterol Reference Range: Low Risk <200 Borderline 200-239 High Risk >240HDL Cholesterol Reference Range: Low Risk >=60 High Risk <40LDL Cholesterol Reference Range: Optimal <100 Near Optimal 100-129 Borderline 130-159 High 160-189 Very High [id number] 07:09:00 Test Item Value Reference Range Interpretation Comments LIPASE (BEAKER) (test code = 749) 41 U/L 8-78 [id number] 07:09:00 Test Item Value Reference Range Interpretation Comments AMYLASE (BEAKER) (test code = 349) 34 U/L 25-125 BASIC METABOLIC [id number] 07:09:00 Test Item Value Reference Range Interpretation Comments SODIUM (BEAKER) 137 meq/L 136-145 (test code = 381) POTASSIUM (BEAKER) 4.1 meq/L 3.5-5.1 (test code = 379) CHLORIDE (BEAKER) 106 meq/L 98-107 (test code = 382) CO2 (BEAKER) (test 26 meq/L 22-29 code = 355) BLOOD UREA NITROGEN 10 mg/dL 7-21 (BEAKER) (test code = 354) CREATININE (BEAKER) 0.75 mg/dL 0.57-1.25 (test code = 358) GLUCOSE RANDOM 102 mg/dL 70-105 (BEAKER) (test code = 652) CALCIUM (BEAKER) 8.6 mg/dL 8.4-10.2 (test code = 697) EGFR (BEAKER) (test 84 mL/min/1.73 ESTIMA DALIA GFR IS code = 1092) sq m NOT ACCURATE CREATININE CLEARANCE IN PREDICTING GLOMERULAR FILTRATION RATE . ESTIMATED GFR I S NOT APPLICABLE FOR DIALYSIS PATIEN TS. HEPATIC FUNCTION [id number] 07:09:00 Test Item Value Reference Range Interpretation Comments TOTAL PROTEIN (BEAKER) (test code = 6.8 gm/dL 6.0-8.3 770) ALBUMIN (BEAKER) (test code = 1145) 3.6 g/dL 3.5-5.0 BILIRUBIN TOTAL (BEAKER) (test code 0.6 mg/dL 0.2-1.2 = 377) BILIRUBIN DIRECT (BEAKER) (test 0.2 mg/dL 0.1-0.5 code = 706) ALKALINE PHOSPHATASE (BEAKER) (test 78 U/L 40-150 code = 346) AST (SGOT) (BEAKER) (test code = 16 U/L 5-34 353) ALT (SGPT) (BEAKER) (test code = 20 U/L 6-55 347) CBC W/PLT COUNT & AUTO [id number] 04:57:00 Test Item Value Reference Range Interpretation Comments WHITE BLOOD CELL COUNT (BEAKER) 6.7 K/ L 3.5-10.5 (test code = 775) RED BLOOD CELL COUNT (BEAKER) 5.40 M/ L 3.93-5.22 H (test code = 761) HEMOGLOBIN (BEAKER) (test code = 15.3 GM/DL 11.2-15.7 410) HEMATOCRIT (BEAKER) (test code = 48.5 % 34.1-44.9 H 411) MEAN CORPUSCULAR VOLUME (BEAKER) 89.8 fL 79.4-94.8 (test code = 753) MEAN CORPUSCULAR HEMOGLOBIN 28.3 pg 25.6-32.2 (BEAKER) (test code = 751) MEAN CORPUSCULAR HEMOGLOBIN CONC 31.5 GM/DL 32.2-35.5 L (BEAKER) (test code = 752) RED CELL DISTRIBUTION WIDTH 13.5 % 11.7-14.4 (BEAKER) (test code = 412) PLATELET COUNT (BEAKER) (test 230 K/CU MM 150-450 code = 756) MEAN PLATELET VOLUME (BEAKER) 11.7 fL 9.4-12.3 (test code = 754) NUCLEATED RED BLOOD CELLS 0 /100 WBC 0-0 (BEAKER) (test code = 413) NEUTROPHILS RELATIVE PERCENT 51 % (BEAKER) (test code = 429) LYMPHOCYTES RELATIVE PERCENT 36 % (BEAKER) (test code = 430) MONOCYTES RELATIVE PERCENT 9 % (BEAKER) (test code = 431) EOSINOPHILS RELATIVE PERCENT 4 % (BEAKER) (test code = 432) BASOPHILS RELATIVE PERCENT 1 % (BEAKER) (test code = 437) NEUTROPHILS ABSOLUTE COUNT 3.39 K/ L 1.56-6.13 (BEAKER) (test code = 670) LYMPHOCYTES ABSOLUTE COUNT 2.40 K/ L 1.18-3.74 (BEAKER) (test code = 414) MONOCYTES ABSOLUTE COUNT (BEAKER) 0.57 K/ L 0.24-0.36 H (test code = 415) EOSINOPHILS ABSOLUTE COUNT 0.25 K/ L 0.04-0.36 (BEAKER) (test code = 416) BASOPHILS ABSOLUTE COUNT (BEAKER) 0.05 K/ L 0.01-0.08 (test code = 417) IMMATURE GRANULOCYTES-RELATIVE 0 % 0-1 PERCENT (BEAKER) (test code = 2801) TSH/FREE T4 IF [id number] 14:43:00 Test Item Value Reference Range Interpretation Comments THYROID STIMULATING HORMONE 3.19 uIU/mL 0.35-4.94 (BEAKER) (test code = 772) TROPONIN [id number] 12:27:00 Test Item Value Reference Range Interpretation Comments TROPONIN I (BEAKER) (test code = 397) < ng/mL 0.00-0.03 Troponin I (TnI) levels [...] acidosis, acute neurological disease, and persistent tachyarrhythmia.TROPONIN [id number] 05:37:00 Test Item Value Reference Range Interpretation Comments TROPONIN I (BEAKER) (test code = 0.05 ng/mL 0.00-0.03 H 397) Troponin I (TnI) levels must be interpreted [...] acute neurological disease, and persistent tachyarrhythmia.CT, CTA, [id number] 04:23:00Reason for exam:->CHEST PAINIs the patient ?->NoWhat is the patient's sedation requirement?->No SedationFINAL REPORT CT, CTA, CHEST INDICATION: CHEST PAINChest pain, back pain [...] trunk, and1.8 cm at the hiatus. NONVASCULAR FINDINGS:Chest:Lungs and pleura: Bilateral lower lobe dependent atelectasis. [...] acute intrathoracicabnormality. Hepatic steatosis. Signed: Spike Cooper [facility] Verified Date/Time: 10/12/2018 04:23:50 PREGNANCY SCREEN, URINE 2018-10-12 03:14:00 Test Item Value Reference Range Interpretation Comments TEST URINE (BEAKER) (test Negative code = 583) TROPONIN [id number] 02:22:00 Test Item Value Reference Range Interpretation Comments TROPONIN I (BEAKER) (test code = 397) < ng/mL 0.00-0.03 Troponin I (TnI) levels [...] acute neurological disease, and persistent tachyarrhythmia.BASIC METABOLIC [id number] 02:16:00 Test Item Value Reference Range Interpretation Comments SODIUM (BEAKER) 138 meq/L 136-145 (test code = 381) POTASSIUM (BEAKER) 3.9 meq/L 3.5-5.1 Specimen slightly (test code = 379) hemolyzed CHLORIDE (BEAKER) 104 meq/L 98-107 (test code = 382) CO2 (BEAKER) (test 23 meq/L 22-29 code = 355) BLOOD UREA NITROGEN 12 mg/dL 7-21 (BEAKER) (test code = 354) CREATININE (BEAKER) 0.87 mg/dL 0.57-1.25 Specimen slightly (test code = 358) hemolyzed GLUCOSE RANDOM 96 mg/dL 70-105 (BEAKER) (test code = 652) CALCIUM (BEAKER) 8.8 mg/dL 8.4-10.2 (test code = 697) EGFR (BEAKER) (test 71 mL/min/1.73 ESTIMA DALIA GFR IS code = 1092) sq m NOT ACCURATE CREATININE CLEARANCE IN PREDICTING GLOMERULAR FILTRATION RATE . ESTIMATED GFR I S NOT APPLICABLE FOR DIALYSIS PATIEN TS. HEPATIC FUNCTION [id number] 02:16:00 Test Item Value Reference Range Interpretation Comments TOTAL PROTEIN (BEAKER) 7.7 gm/dL 6.0-8.3 Speci men slightly (test code = 770) hemolyzed ALBUMIN (BEAKER) (test 3.8 g/dL 3.5-5.0 Speci men slightly code = 1145) hemolyzed BILIRUBIN TOTAL 0.3 mg/dL 0.2-1.2 Specimen sli ghtly (BEAKER) (test code = hemoly zed 377) BILIRUBIN DIRECT 0.1 mg/dL 0.1-0.5 Specimen sl ightly (BEAKER) (test code = hemoly zed 706) ALKALINE PHOSPHATASE 86 U/L 40-150 (BEAKER) (test code = 346) AST (SGOT) (BEAKER) 16 U/L 5-34 Specimen slightly (test code = 353) hemolyzed ALT (SGPT) (BEAKER) 22 U/L 6-55 Specimen slightly (test code = 347) hemolyzed CBC W/PLT COUNT & AUTO [id number] 01:54:00 Test Item Value Reference Range Interpretation Comments WHITE BLOOD CELL COUNT (BEAKER) 10.5 K/ L 3.5-10.5 (test code = 775) RED BLOOD CELL COUNT (BEAKER) 5.24 M/ L 3.93-5.22 H (test code = 761) HEMOGLOBIN (BEAKER) (test code = 15.0 GM/DL 11.2-15.7 410) HEMATOCRIT (BEAKER) (test code = 45.8 % 34.1-44.9 H 411) MEAN CORPUSCULAR VOLUME (BEAKER) 87.4 fL 79.4-94.8 (test code = 753) MEAN CORPUSCULAR HEMOGLOBIN 28.6 pg 25.6-32.2 (BEAKER) (test code = 751) MEAN CORPUSCULAR HEMOGLOBIN CONC 32.8 GM/DL 32.2-35.5 (BEAKER) (test code = 752) RED CELL DISTRIBUTION WIDTH 13.5 % 11.7-14.4 (BEAKER) (test code = 412) PLATELET COUNT (BEAKER) (test 232 K/CU MM 150-450 code = 756) MEAN PLATELET VOLUME (BEAKER) 12.1 fL 9.4-12.3 (test code = 754) NUCLEATED RED BLOOD CELLS 0 /100 WBC 0-0 (BEAKER) (test code = 413) NEUTROPHILS RELATIVE PERCENT 62 % (BEAKER) (test code = 429) LYMPHOCYTES RELATIVE PERCENT 26 % (BEAKER) (test code = 430) MONOCYTES RELATIVE PERCENT 9 % (BEAKER) (test code = 431) EOSINOPHILS RELATIVE PERCENT 3 % (BEAKER) (test code = 432) BASOPHILS RELATIVE PERCENT 1 % (BEAKER) (test code = 437) NEUTROPHILS ABSOLUTE COUNT 6.49 K/ L 1.56-6.13 H (BEAKER) (test code = 670) LYMPHOCYTES ABSOLUTE COUNT 2.78 K/ L 1.18-3.74 (BEAKER) (test code = 414) MONOCYTES ABSOLUTE COUNT (BEAKER) 0.89 K/ L 0.24-0.36 H (test code = 415) EOSINOPHILS ABSOLUTE COUNT 0.29 K/ L 0.04-0.36 (BEAKER) (test code = 416) BASOPHILS ABSOLUTE COUNT (BEAKER) 0.05 K/ L 0.01-0.08 (test code = 417) IMMATURE GRANULOCYTES-RELATIVE 0 % 0-1 PERCENT (BEAKER) (test code = 2801) RAD, CHEST, PA OR AP, 1 [id number] 00:50:00Reason for exam:->CHEST PAINIs the patient ?->NoShould this be performed at the bedside?->NoFINAL REPORT INDICATION: CHEST PAIN COMPARISON: None TECHNIQUE: Single frontal view of the chest. FINDINGS: Lungs and pleura: Clear lungs. No effusion.Heart and mediastinum: Normal heart size. Unremarkable mediastinal contours.Osseous structures: No acute abnormality.Other: None. IMPRESSION: No acute intrathoracic abnormality. Signed: Karissa Cochran [facility] Verified Date/Time:10/12/2018 00:50:00 Reading Location: [facility] C013V Neuro Reading Room
[2020-02-16 03:00] LABS: Absolute Lymphocytes (CBC) 1.8 K/uL (0.7-4.9); Basophils % 0.7 % (0-1.3); Hematocrit 41.8 % (36.0-45.0); Lymphocytes % 24.9 % (15.3-44.8); MPV 10.6 fL (7.6-11.3); RBC Red Blood Cell Count 4.89 M/uL (3.86-4.86)
[2020-02-16 03:01] LABS: Protime INR 0.94
[2020-02-16 03:15] LABS: ALT/SGPT 30 U/L (12-78); AST/SGOT 12 U/L (15-37); Albumin 3.2 g/dL (3.4-5.0); Alkaline Phosphatase 93 U/L (45-117); BUN Blood Urea Nitrogen 10 mg/dL (7-18); Bicarbonate 27 mmol/L (21-32); Bilirubin Direct < 0.1 mg/dL (0-0.2); Bilirubin Total 0.4 mg/dL (0.2-1.0); C-Reactive Protein 4.91 mg/L (<3.00); Glucose Level 125 mg/dL (74-106); Magnesium 2.3 mg/dL (1.8-2.4); Protein, Total 6.9 g/dL (6.4-8.2); Sodium Level 140 mmol/L (136-145); Troponin (Emerg Dept Use Only) < 0.02 ng/mL (0.0-0.045)
[2020-02-16 03:34] LABS: NT PRO-BNP < 5 pg/mL (<125)
--- NOTE | 2020-02-16 04:04 | ER ---
Nurse's Notes [facility] Name: Teresa Cuevas Age: 44 yrs Sex: Female : 1975 Arrival Date: 02/16/2020 Time: 01:12 Bed 2 Private MD: Diagnosis: Dyspnea Presentation: 02/15 01:14 Chief complaint: Patient states: Chest pain that radiates to left arm with nausea. Pt tl1 states she has not felt good for the past week with shortness of breath. Blood pressure medication was changed 3 days ago from lopressor to cardizem. Coronavirus screen: Client denies travel out of the [place] in the last 14 days. At this time, the client does not indicate any symptoms associated with coronavirus-19. Ebola Screen: Patient negative for fever greater than or equal to 101.5 degrees Fahrenheit, and additional compatible Ebola Virus Disease symptoms Patient denies exposure to infectious person. Patient denies travel to an Ebola-affected area in the 21 days before illness onset. Initial Sepsis Screen: Does the patient meet any 2 criteria? HR > 90 bpm. Does the patient have a suspected source of infection? No. Patient's initial sepsis screen is negative. Risk Assessment: Do you want to hurt yourself or someone else? Patient reports no desire to harm self or others. Onset of symptoms was February 16, 2020. 01:14 Method Of Arrival: Ambulatory tl1 01:14 Acuity: VICTORINA 3 tl1 Historical: - Allergies: 01:20 No Known Allergies; tl1 - Home Meds: 01:20 Cardizem CD 120 mg Oral cp24 1 cap once daily [Active]; losartan 25 mg oral tab 1 tab tl1 once daily [Active]; - PMHx: 01:20 Hypertension; tl1 - Immunization history:: Adult Immunizations up to date. - Social history:: Smoking status: Patient denies any tobacco usage or history of. Patient/guardian denies using alcohol, street drugs. Screenin:49 Abuse screen: Denies threats or abuse. Denies injuries from another. Nutritional lp1 screening: No deficits noted. Tuberculosis screening: No symptoms or risk factors identified. Fall Risk None identified. Assessment: 01:30 General: Appears in no apparent distress. Behavior is appropriate for age. Pain: lp1 Complains of pain in chest Pain does not radiate. Pain began gradually. Neuro: Level of Consciousness is awake, alert, obeys commands, Oriented to person, place, time, situation. Cardiovascular: Patient's skin is warm and dry. Rhythm is sinus rhythm. Respiratory: Respiratory effort is even, unlabored, Respiratory pattern is regular. GI: Abdomen is non-distended. : No signs and/or symptoms were reported regarding the genitourinary system. EENT: No signs and/or symptoms were reported regarding the EENT system. Derm: Skin is pink, warm \T\ dry. Musculoskeletal: No deficits noted. 02:18 Reassessment: Patient returned from CT. lp1 03:30 Reassessment: Patient appears in no apparent distress at this time. Patient is alert, lp1 oriented x 3, equal unlabored respirations, skin warm/dry/pink. Patient denies pain at this time. Patient states feeling better. Patient states symptoms have improved. Vital Signs: 01:14 BP 160 / 92; Pulse 100; Resp 20; Temp 98(O); Pulse Ox 100% ; Weight 122.47 kg; Height 5 tl1 ft. 1 in. (154.94 cm); Pain 7/10; 01:30 BP 150 / 77; Pulse 87; Resp 19; Pulse Ox 99% on R/A; lp1 02:23 BP 136 / 62; Pulse 80; Resp 18; Pulse Ox 100% on R/A; lp1 03:00 BP 116 / 77; Pulse 75; Resp 15; Pulse Ox 100% on R/A; lp1 03:30 BP 114 / 78; Pulse 77; Resp 17; Pulse Ox 99% on R/A; Pain 0/10; lp1 01:14 Body Mass Index 51.02 (122.47 kg, 154.94 cm) tl1 ED Course: 01:12 Patient arrived in ED. wh 01:16 EKG done, by aeronautical engineering technologist. reviewed by Jorge Piña MD. oe 01:18 Triage completed. tl1 01:21 Arm band placed on right wrist. tl1 01:27 Jorge Piña MD is Attending Physician. tw4 01:40 Initial lab(s) drawn, by il, sent to lab. Inserted saline lock: 20 gauge in left lp1 antecubital area, using aseptic technique. Blood collected. 01:48 Nia Magallon, RN is Primary Nurse. lp1 01:49 Patient maintains SpO2 saturation greater than 95% on room air. lp1 01:49 Patient has correct armband on for positive identification. Placed in gown. Bed in low lp1 position. legal summer intern on. Pulse ox on. NIBP on. 01:54 XRAY Chest (1 view) In Process Unspecified. EDMS 02:37 CT Chest For PE Angio In Process Unspecified. EDMS 03:03 Notified ED physician of a critical lab result(s). d-dimer 539. tl1 04:13 No provider procedures requiring assistance completed. IV discontinued, No lp1 redness/swelling at site. Pressure dressing applied. Administered Medications: No medications were administered Outcome: 04:03 Discharge ordered by . tw4 04:13 Discharged to home ambulatory. lp1 04:13 Condition: good 04:13 Discharge instructions given to patient, Instructed on discharge instructions, follow up and referral plans. Demonstrated understanding of instructions, follow-up care. 04:13 Patient left the ED. lp1 Signatures: Dispatcher [employer] EDNia Kelsey, RN RN lp1 Christiana Olsen, RN RN tl1 Sebastián Eastman Winsy wh Wadley, Terrence, MD MD tw4 Corrections: (The following items were deleted from the chart) 01:19 01:14 BP 160 / 92; Pulse 100bpm; Resp 22bpm; Pulse Ox 100%; Temp 98F Oral; 122.47 kg; tl1 Height 5 ft. 1 in.; BMI: 51.0; Pain 7/10; tl1
--- NOTE | 2020-02-16 04:04 | EDPHYS ---
Physician Documentation [facility] Name: Teresa Cuevas Age: 44 yrs Sex: Female : 1975 Arrival Date: 02/16/2020 Time: 01:12 Bed 2 Private MD: ED Physician Jorge Piña HPI: 02/15 02:03 This 44 yrs old Female presents to ER via Ambulatory with complaints of Chest tw4 Pain > 30 y/o. 02:03 The patient or guardian reports chest pain that is located primarily in the anterior tw4 chest wall. Onset: today. The pain does not radiate. Associated signs and symptoms: The patient has no apparent associated signs or symptoms. The chest pain is described as dull. Duration: The patient or guardian reports a single episode. Modifying factors: The symptoms are alleviated by nothing. the symptoms are aggravated by nothing. The patient has not experienced similar symptoms in the past. Historical: - Allergies: 01:20 No Known Allergies; tl1 - Home Meds: 01:20 Cardizem CD 120 mg Oral cp24 1 cap once daily [Active]; losartan 25 mg oral tab 1 tab tl1 once daily [Active]; - PMHx: 01:20 Hypertension; tl1 - Immunization history:: Adult Immunizations up to date. - Social history:: Smoking status: Patient denies any tobacco usage or history of. Patient/guardian denies using alcohol, street drugs. ROS: 02:03 Constitutional: Negative for fever, chills, and weight loss, Eyes: Negative for injury, tw4 pain, redness, and discharge, Respiratory: Negative for shortness of breath, cough, wheezing, and pleuritic chest pain, Abdomen/GI: Negative for abdominal pain, nausea, vomiting, diarrhea, and constipation, Back: Negative for injury and pain, MS/Extremity: Negative for injury and deformity, Skin: Negative for injury, rash, and discoloration, Neuro: Negative for headache, weakness, numbness, tingling, and seizure. 02:03 Cardiovascular: Positive for chest pain, Negative for edema, orthopnea, palpitations, paroxysmal nocturnal dyspnea. Exam: 02:03 Constitutional: This is a well developed, well nourished patient who is awake, alert, tw4 and in no acute distress. Head/Face: Normocephalic, atraumatic. Chest/axilla: Normal chest wall appearance and motion. Nontender with no deformity. No lesions are appreciated. Cardiovascular: Regular rate and rhythm with a normal S1 and S2. No gallops, murmurs, or rubs. Normal PMI, no JVD. No pulse deficits. Respiratory: Lungs have equal breath sounds bilaterally, clear to auscultation and percussion. No rales, rhonchi or wheezes noted. No increased work of breathing, no retractions or nasal flaring. Abdomen/GI: Soft, non-tender, with normal bowel sounds. No distension or tympany. No guarding or rebound. No evidence of tenderness throughout. Skin: Warm, dry with normal turgor. Normal color with no rashes, no lesions, and no evidence of cellulitis. MS/ Extremity: Pulses equal, no cyanosis. Neurovascular intact. Full, normal range of motion. Neuro: Awake and alert, GCS 15, oriented to person, place, time, and situation. Cranial nerves II-XII grossly intact. Motor strength 5/5 in all extremities. Sensory grossly intact. Cerebellar exam normal. Normal gait. Vital Signs: 01:14 BP 160 / 92; Pulse 100; Resp 20; Temp 98(O); Pulse Ox 100% ; Weight 122.47 kg; Height 5 tl1 ft. 1 in. (154.94 cm); Pain 7/10; 01:30 BP 150 / 77; Pulse 87; Resp 19; Pulse Ox 99% on R/A; lp1 02:23 BP 136 / 62; Pulse 80; Resp 18; Pulse Ox 100% on R/A; lp1 03:00 BP 116 / 77; Pulse 75; Resp 15; Pulse Ox 100% on R/A; lp1 03:30 BP 114 / 78; Pulse 77; Resp 17; Pulse Ox 99% on R/A; Pain 0/10; lp1 01:14 Body Mass Index 51.02 (122.47 kg, 154.94 cm) tl1 MDM: 01:27 Patient medically screened. tw4 04:18 Differential diagnosis: acute myocardial infarction, acute pericarditis, pulmonary tw4 embolus, stable angina, thoracic aortic disection. HEART Score: History: Slightly Suspicious (0), ECG: Non specific repolarization disturbance / LBTB / PM (1), Age: > 45 and < 65 years (1), Risk Factors: 1 or 2 risk factors (1), Troponin: < or = 1 x Normal Limit (0), Total Score = 3. Data reviewed: vital signs, nurses notes. Data reviewed: lab test result(s), cardiac enzymes, electrolytes, hepatic panel, EKG, radiologic studies, CT scan, plain films. Data interpreted: Pulse oximetry: Interpretation: normal. Test interpretation: by ED physician or midlevel provider: ECG, plain radiologic studies. Counseling: I had a detailed discussion with the patient and/or guardian regarding: the historical points, exam findings, and any diagnostic results supporting the discharge/admit diagnosis, lab results, radiology results, the need for outpatient follow up, a technology architect. Special discussion: I discussed with the patient/guardian in detail that at this point there is no indication for admission to the hospital. It is understood, however, that if the symptoms persist or worsen the patient needs to return immediately for re-evaluation. 05:36 Special discussion: Based on the patient's history, exam, and Dx evaluation, there is tw4 no indication for emergent intervention or inpatient Tx. It is understood by the patient/guardian that if the Sx's persist or worsen they need to return immediately for re-evaluation. 02/15 01:30 Order name: Basic Metabolic Panel tw4 02/15 01:30 Order name: CBC with Diff tw4 02/15 01:30 Order name: LFT's tw4 02/15 01:30 Order name: Magnesium tw4 02/15 01:30 Order name: NT PRO-BNP tw4 02/15 01:30 Order name: PT-INR tw4 02/15 01:30 Order name: Troponin (emerg Dept Use Only) tw4 02/15 01:30 Order name: D-Dimer tw4 02/15 01:31 Order name: Basic Metabolic Panel EDOR 02/15 01:31 Order name: CBC with Automated Diff EDMS 02/15 02:54 Order name: C-Reactive Protein EDMS 02/15 03:04 Order name: SARS-COV-2 RT PCR EDOR 02/15 01:30 Order name: XRAY Chest (1 view) tw4 02/15 01:30 Order name: EKG; Complete Time: 01:31 tw4 02/15 01:30 Order name: Cardiac monitoring; Complete Time: 02:00 tw4 02/15 01:30 Order name: EKG - Nurse/Tech; Complete Time: 01:46 4 02/15 01:30 Order name: IV Saline Lock; Complete Time: 02:00 4 02/15 01:30 Order name: Labs collected and sent; Complete Time: 02:00 4 02/15 01:30 Order name: O2 Per Protocol; Complete Time: 02:00 02/15 01:30 Order name: O2 Sat Monitoring; Complete Time: 02:00 4 02/15 01:30 Order name: CT Chest For PE Angio tw4 EC:23 Rate is 104 beats/min. Rhythm is regular. QRS [place] is Normal. [place] interval is normal. tw4 QRS interval is normal. QT interval is normal. No Q waves. T waves are Normal. No ST changes noted. Clinical impression: Sinus tachycardia. Interpreted by me. Reviewed by me. Administered Medications: No medications were administered Disposition: 02/16/20 04:03 Discharged to Home. Impression: Dyspnea. - Condition is Stable. - Discharge Instructions: Shortness of Breath. - Medication Reconciliation Form, Thank You Letter, Antibiotic Education, Prescription Opioid Use form. - Follow up: Private Physician; When: Upon discharge from the Emergency Department; Reason: Recheck today's complaints, Continuance of care, Re-evaluation by your physician. - Problem is new. - Symptoms have improved. Signatures: Dispatcher [employer] EDOR Nia Magallon RN RN lp1 Christiana Olsen RN RN tl1 Jorge Piña MD MD tw4 Corrections: (The following items were deleted from the chart) 02:10 01:32 CORONAVIRUS+MR.LAB.BRZ ordered. [facility] EDMS 02:54 02:29 C-REACTIVE PROTEIN+C.LAB.BRZ ordered. [facility] EDMS 04:13 04:03 02/16/2020 04:03 Discharged to Home. Impression: Dyspnea. Condition is Stable. lp1 Forms are Medication Reconciliation Form, Thank You Letter, Antibiotic Education, Prescription Opioid Use. Follow up: Private Physician; When: Upon discharge from the Emergency Department; Reason: Recheck today's complaints, Continuance of care, Re-evaluation by your physician. Problem is new. Symptoms have improved. tw4
--- NOTE | 2020-02-16 08:40 | RAD REPORT ---
EXAM DESCRIPTION: RAD - Chest Single View - 02/16/2020 1:54 am CLINICAL HISTORY: SOB Chest pain. COMPARISON: Chest Single View dated 03/06/2019; CHEST PA AND LAT 2 VIEW dated 06/15/2013 FINDINGS: Portable technique limits examination quality. The lungs are grossly clear. The heart is normal in size. No displaced fractures. IMPRESSION: No acute intrathoracic process suspected.
--- NOTE | 2020-02-16 10:42 | RAD REPORT ---
EXAM DESCRIPTION: CT Angiography Chest With Intravenous Contrast CLINICAL HISTORY: The patient is 44 years old and is Female; Pain;PE TECHNIQUE: Axial computed tomographic angiography images of the chest with intravenous contrast. S agittal and coronal reformatted images were created and reviewed. This CT exam was performed using one or more of the following dose reduction techniques: automated exposure control, adjustment of t he mA and/or kV according to patient size, and/or use of iterative reconstruction technique. MIP reconstructed images were created and reviewed. COMPARISON: No relevant prior studies available. FINDINGS: ARTIFACTS: The exam is suboptimal secondary to motion artifact. PULMONARY ARTERIES: There are no obvious filling defects identified within the pulmonary arterie s to suggest pulmonary embolism. AORTA: No acute findings. No thoracic aortic aneurysm. LUNGS: Unremarkable. No mass. No consolidation. PLEURAL SPACE: Unremarkable. No significant effusion. No pneumothorax. HEART: Unremarkable. No cardiomegaly. No significant pericardial effusion. No evidence of RV dysfunction. BONES/JOINTS: No acute fracture. No dislocation. SOFT TISSUES: Unremarkable. LYMPH NODES: Unremarkable. No enlarged lymph nodes. LIVER: The liver is enlarged and diffusely fatty. IMPRESSION: No evidence of pulmonary embolism. Electronically signed by: Sarah Larios MD 02/16/2020 2:36 AM DIRECTOR OF CONTRACTS Due to temporary technical issues with the PACS/Fluency reporting system, reports are being signed by the in house radiologist without review as a courtesy to ensure prompt reporting. The interpreting r adiologist is fully responsible for the content of the report.
[2020-02-19 17:46] VITALS: TEMP 98
[2020-02-19 17:51] VITALS: BP 114/78; O2SAT 99
== END 2020-02-16 04:13 | disposition home or self-care (01) ==
LOC: ER 01:02
DX: R06.00 Dyspnea, unspecified (principal); Z20.828 Contact with and (suspected) exposure to other viral communicable diseases; I10 Essential (primary) hypertension
CPT/HCPCS: 93005; 85025; 80048; 36415; 83735; 85610; 82565; 85379; 80076; 84484; 83880; 86140; 71275; 71045; 99285; U0003; Q9967

== ENCOUNTER 2020-02-19 09:52 | Observation (INO) | payer OTHER ==
--- OUTSIDE RECORDS SUMMARY | 2020-02-19 09:55 | XMS REPORT | Clinical Summary ---
:1975 Author Organization [facility] Address [address] [place] [id number] Care Team Providers Name Role Phone Unavailable Primary Care Provider Unavailable Allergies No Known Allergies Medications Medication Sig Dispensed Refills Start Date End Date Status metoprolol (TOPROL-XL) Take 50 mg by 0 Active 50 MG 24 hr tablet mouth daily. Active Problems Problem Noted Date Elevated troponin 10/12/2018 Chest pain, unspecified type 10/12/2018 Encounters Date Type Specialty Care Team Description 02/16/2020 Outside Orders Radiology Flavia Swann MD SOB ( shortness of breath) on exertion (Primary Dx); Positive D-dime r after 02/18/2019 Social History Tobacco Use Types Packs/Day Years [...] CANCER SCREENING PAP ONLY (Age 21-65) 1996 DEPRESSION SCREENING (12+) 03/12/2019 INFLUENZA VACCINE (#1) 2019 LIPID PANEL 10/13/2021 10/13/2018 Results Not on fileafter 02/18/2019 Insurance Payer Benefit Plan / Subscriber ID Effective Dates Phone Addre ss Type Group CIGNA - MGD CIGNA [id number] 2018-Present HMO/POS CARE HMO/POS/OPEN ACCESS Advance Directives For more information, please contact: [phone] Code Status Date Activated Date Inactivated Comments Full Code 10/12/2018 9:38 AM 10/13/2018 8:54 PM This code status was determined by: Patient
--- OUTSIDE RECORDS SUMMARY | 2020-02-19 09:56 | XMS REPORT | Continuity of Care Document ---
:1975 Author Organization [facility] t Address [address] [place] [address] Care Team Providers Name Role Phone Shree ROSENBERG Attending Clinician LISETTE BLACKMON Attending Clinician Unavailable ANNEL RUDD Admitting Clinician Unavailable Payers Payer Name Policy Type Policy Number Effective Date Expiration Date Ash robb CIGNA - MGD [id number] [address] [facility] CARECIGNA 00:00:00 - Medical HMO/POS/OPEN Center [id number] [facility] Problems Condition Condition Condition Status Onset Resolution [...] s - kg/sq m kg/sq m [facility] Insomnia, Insomnia, Problem Active [facility] unspecifie unspecifie Devorah kes - d type d type [facility] Frequent Frequent Problem Active [facility] PVCs PVCs [facility] Essential Essential Problem Active [facility] hypertensi hypertensi Devorah kes - on on [facility] Vitamin D Vitamin D Problem Active [facility] deficiency deficiency Devorah kes - [facility] Shifting Shifting Problem Active [facility] sleep-work sleep-work [facility] - schedule, schedule, Eliel joleen affecting affecting l sleep sleep [facility] Adult Adult Problem Active [facility] general general [facility] medical [facility] exam exam l [facility] Obesity, Obesity, Problem Active [facility] morbid, morbid, [facility] - BMI 50 or BMI 50 or Eliel joleen higher higher l [facility] Seasonal Seasonal Problem Active [facility] allergies allergies [facility] - [facility] Irregular Irregular Problem Active [facility] heart beat heart beat Devorah kes - [facility] Allergies, Adverse Reactions, Alerts This patient has no known allergies or adverse reactions. Social History Social Habit Start Date Stop Date Quantity Comments Source History SDUT [facility] - Alcohol Std Drinks [facility] History [facility] - Alcohol Binge Medical [facility] ter Sex Assigned At [facility] Tobacco use and 2018-10-11 2018-10-[address] Devorah kes - exposure 00:00:00 00:00:00 [facility] Alcohol intake 2018-10-11 2018-10-11 [address] [facility] Trevor es - 00:00:00 00:00:00 non-drinker of Medical nter alcohol (finding) History [facility] 2018-10-11 2018-10-[address] [facility] - Alcohol Frequency 00:00:00 00:00:00 [facility] Smoking Status Start Date Stop Date Source Never smoker [facility] Medications Ordered Filled Start Stop Current Ordering Indication Dosage Frequency Signature Comments Components Source Medication Medication Date Date Medication? Clinician (SIG) Name Name metoprolol Yes 50mg QD Take [address] (TOPROL-XL) 8-04 by mouth Luke s - 50 MG 24 hr 18:54: daily. Medi yvrose tablet Center Metoprolol Metoprolol Yes [place] [address] Succinate Succinate [facility] - ER ER [facility] Procedures This patient has no known procedures. Plan of Care Planned Activity Planned Date Details Comments Source Future Scheduled 2021-10-[address] [facility] - Test 00:00:00 (procedure) [code = [facility] [id number]] Future Scheduled 2019-11-[address] [facility] - Test 00:00:00 (#1) [code = [facility] INFLUENZA VACCINE (#1)] Future Scheduled 2019-03-[address] [facility] - Test 00:00:00 (12+) [code = [facility] DEPRESSION SCREENING (12+)] Future Scheduled [address] [facility] - Test 00:00:00 malignant neoplasm of [facility]ica [facility] Center cervix (procedure) [code = 080284042] Encounters Start End Encounter Admission Attending Care Care Encounter Source Date/Time Date/Time Type Type Clinicians Facility Department ID 2019-06-26 2019-06-26 [facility] [id number] 12:21:00 12:21:00 t [employer] [facility] ent Clinics 2019-04-10 2019-04-10 [facility] [id number] 09:40:00 09:40:00 [employer] [facility] ent Clinics 2018-11-05 2018-11-05 [facility] [id number] 13:37:00 13:37:00 [employer] [facility] ent Clinics 2018-09-03 2018-09-03 [facility] [id number] 16:20:00 16:20:00 [employer] [facility] Results Test Description Test Time Test Comments Results Result [facility] e Comments PET, CARDIAC 2018-10-13 Reason for FINAL REPORT PATIENT PERFUSION MULTIPLE 16:50:00 exam:->ischemic ID: [id number] STUDIES, REST AND workup for at PROCEDURE: STRESS least moderate Rest/Stress pretest prob MYOCARDIAL PERFUSION CADReason for PET with exam:->discharg regadenoson\XA9\CPT e pending CODE: [id number]: chest pain, elevated troponin, obesity BMI=42.6HISTORY: Cardiac [...] rest or with stress. Signed: Martha Dickinson [facility] Verified Date/Time: 10/13/2018 16:50:50 GLOBIN A1C 2018-10-13 10:13:00 Test Item Value Reference Range Interpretation Comme nts HEMOGLOBIN A1C (BEAKER) (test code = 368) 5.7 % 4.3-6.1 LIPID [id number] 09:53:00 Test Item Value Reference Range Interpretation Comments TRIGLYCERIDES (BEAKER) 245 mg/dL Speci men slightly (test code = 540) hemolyzed CHOLESTEROL (BEAKER) 172 mg/dL Specime n slightly (test code = 631) hemolyzed HDL CHOLESTEROL (BEAKER) 37 mg/dL (test code = 976) LDL CHOLESTEROL 86 mg/dL CALCULATED (BEAKER) (test code = 633) Triglyceride Reference Range: Low Risk <150 Borderline 150-199 High Risk 200-499 Very High Risk >=500Cholesterol Reference Range: Low Risk <200 Borderline 200-239 High Risk >240HDL Cholesterol Reference Range: Low Risk >=60 High Risk <40LDL Cholesterol Reference Range: Optimal <100 Near Optimal 100-129 Borderline 130-159 High 160-189 Very High [id number] 07:09:00 Test Item Value Reference Range Interpretation Comments LIPASE (BEAKER) (test code = 749) 41 U/L 8-78 [id number] 07:09:00 Test Item Value Reference Range Interpretation Comments AMYLASE (BEAKER) (test code = 349) 34 U/L 25-125 BASIC METABOLIC [id number] 07:09:00 Test Item Value Reference Range Interpretation [...] APPLICABLE FOR DIALYSIS PATIEN TS. HEPATIC FUNCTION [id number] 07:09:00 Test Item Value Reference Range Interpretation [...] 6-55 347) CBC W/PLT COUNT & AUTO [id number] 04:57:00 Test Item Value Reference Range Interpretation [...] (test code = 2801) TSH/FREE T4 IF [id number] 14:43:00 Test Item Value Reference Range Interpretation Comments THYROID STIMULATING HORMONE 3.19 uIU/mL 0.35-4.94 (BEAKER) (test code = 772) TROPONIN [id number] 12:27:00 Test Item Value Reference Range Interpretation [...] acidosis, acute neurological disease, and persistent tachyarrhythmia.TROPONIN [id number] 05:37:00 Test Item Value Reference Range Interpretation [...] acute neurological disease, and persistent tachyarrhythmia.CT, CTA, [id number] 04:23:00Reason for exam:->CHEST PAINIs the patient ?->NoWhat [...] acute intrathoracicabnormality. Hepatic steatosis. Signed: Spike Cooper [facility] Verified Date/Time: 10/12/2018 04:23:50 PREGNANCY SCREEN, URINE 2018-10-12 03:14:00 Test Item Value Reference Range Interpretation Comments TEST URINE (BEAKER) (test Negative code = 583) TROPONIN [id number] 02:22:00 Test Item Value Reference Range Interpretation [...] acute neurological disease, and persistent tachyarrhythmia.BASIC METABOLIC [id number] 02:16:00 Test Item Value Reference Range Interpretation [...] APPLICABLE FOR DIALYSIS PATIEN TS. HEPATIC FUNCTION [id number] 02:16:00 Test Item Value Reference Range Interpretation [...] 347) hemolyzed CBC W/PLT COUNT & AUTO [id number] 01:54:00 Test Item Value Reference Range Interpretation [...] 2801) RAD, CHEST, PA OR AP, 1 [id number] 00:50:00Reason for exam:->CHEST PAINIs the patient ?->NoShould this be performed at the bedside?->NoFINAL REPORT INDICATION: CHEST PAIN COMPARISON: None TECHNIQUE: Single frontal view of the chest. FINDINGS: Lungs and pleura: Clear lungs. No effusion.Heart and mediastinum: Normal heart size. Unremarkable mediastinal contours.Osseous structures: No acute abnormality.Other: None. IMPRESSION: No acute intrathoracic abnormality. Signed: Karissa Cochran [facility] Verified Date/Time:10/12/2018 00:50:00 Reading Location: [facility] C013V Neuro Reading Room
[2020-02-19] MEDS ORDERED: ONDANSETRON 4 MG/2 ML VIAL IV PRN (10:33)
[2020-02-19] MEDS ORDERED: ACETAMINOPHEN 500 MG TAB PO PRN (10:33)
[2020-02-19 11:04] VITALS: BMI 54.8
--- NOTE | 2020-02-19 11:45 | P.HP ---
Certification for Inpatient Patient admitted to: Observation With expected LOS: <2 Midnights Patient will require the following post-hospital care: None Practitioner: I am a practitioner with admitting privileges, knowledge of patient current condition, hospital course, and medical plan of care. Services: Services provided to patient in accordance with Admission requirements found in Title 42 Section 412.3 of the Code of Federal Regulations Patient History Date of Service: 02/19/20 Primary Care Provider: Dr. Medina; Cardiology-Dr. Garcia Reason for admission: Chest pain History of Present Illness: 44-year-old female with history of hypertension. Patient presented with chest pain for the last 2-3 days. Chest pain would come and go. She rated the pain more like a pressure. Pain would radiate to the back and neck. It was associated with some headaches and shortness of breath. She went to see the slate cutter this morning. Cardiology suspects unstable angina. Patient admitted for further evaluation. Cardiology plans for heart catheterization. Patient with significant family history of father having IA with CABG at age 45. Patient was a direct admit to the floor. Patient without chest pain upon admission. She did report that she was seen Sunday in the emergency room. She was tested for COVID at that time which was negative. She also had a CT chest that showed no pulmonary embolism. Her D-dimer was elevated at that time. Allergies No Known Allergies Allergy (Verified 08/07/12 07:52) Home medications list reviewed: Yes Home Medications: Metoprolol Tartrate [Lopressor] 50 mg PO DAILY 03/07/19 ALPRAZolam [Xanax] 0.5 mg PO BID PRN 02/19/20 Famotidine [Pepcid*] 1 tab PO DAILY 02/19/20 Losartan Potassium 25 mg PO DAILY 02/19/20 Metoprolol Succinate [Toprol Xl] 50 mg PO DAILY 02/19/20 Rosuvastatin [Crestor*] 1 tab PO BEDTIME 02/19/20 - Past Medical/Surgical History Has patient received pneumonia vaccine in the past: No Diabetic: No -: Hypertension -: Obesity -: [facility] - section 07/30/2009 Psychosocial/ Personal History: 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 - Family History Father -: Heart disease Notes: IA Mother -: Heart disease, Diabetes, Other (see notes) Notes: IA with stent - Social History Smoking Status: Never smoker Alcohol use: Yes CD- Drugs: No Caffeine use: Yes Place of Residence: Home Review of Systems General: As per HPI Eyes: Unremarkable ENT: Unremarkable Respiratory: Shortness of Breath, As per HPI Cardiovascular: Chest Pain, As per HPI Gastrointestinal: Unremarkable Genitourinary: Unremarkable Musculoskeletal: Unremarkable Integumentary: Unremarkable Neurological: Unremarkable Lymphatics: Unremarkable Physical Examination - Vital Signs Temperature: 98.4 F Blood Pressure: 128/65 Pulse: 84 Respirations: 16 Pulse Ox (%): 96 - Physical Exam General: Alert, In no apparent distress, Oriented x3, Cooperative HEENT: Atraumatic, Normocephalic, Mucous membr. moist/pink Neck: Supple Respiratory: Clear to auscultation bilaterally, Normal air movement Cardiovascular: Normal pulses, Regular rate/rhythm Gastrointestinal: Normal bowel sounds, Soft and benign, Non-distended, No tenderness, No masses, No rebound, No guarding Musculoskeletal: No erythema, No tenderness, No warmth Integumentary: No tenderness/swelling, No erythema, No warmth, No cyanosis Neurological: Normal speech, Normal strength at 5/5 x4 extr, Normal tone, Normal affect Assessment and Plan - Plan Impression: Chest pain suspect unstable angina Hypertension Obesity, BMI 54.8 Plan: Case discussed in detail with cardiology. Patient will be admitted for further evaluation and treatment. Will monitor telemetry and cardiac enzymes. Will obtain echocardiogram. Cardiology plans for heart catheterization later today. If negative patient can possibly be discharge. Await evaluation and further recommendation. Continue blood pressure medication. Patient may have underlying obstructive sleep apnea. This can be further evaluated as an outpatient. Lifestyle modification education provided. Discharge Plan: Home Plan to discharge in: 24 Hours - Advance Directives Does patient have a Living Will: No Does patient have a Durable POA for Healthcare: No - Code Status/Comfort Care Code Status Assessed: Yes (Patient is full code) Time Spent Managing Pts Care (In Minutes): 55
[2020-02-19 12:02] LABS: Basophils % 0.6 % (0-1.3); Lymphocytes % 23.6 % (15.3-44.8); MPV 10.6 fL (7.6-11.3); RBC Red Blood Cell Count 5.13 M/uL (3.86-4.86)
[2020-02-19 12:03] LABS: Protime INR 1.03
[2020-02-19 12:17] VITALS: O2SAT 98
[2020-02-19 12:29] LABS: BUN Blood Urea Nitrogen 11 mg/dL (7-18); Bicarbonate 30 mmol/L (21-32); CKMB Creatine Kinase MB < 1.0 ng/mL (0.3-3.6); Creatine Phosphokinase 73 U/L (26-192); Glucose Level 103 mg/dL (74-106); HDL Cholesterol 38 mg/dL (40-60); LDL Cholesterol, Calculated 110 (<130); Magnesium 2.6 mg/dL (1.8-2.4); Sodium Level 140 mmol/L (136-145); Troponin I < 0.02 ng/mL (0.0-0.045)
[2020-02-19 19:02] LABS: CKMB Creatine Kinase MB < 1.0 ng/mL (0.3-3.6); Creatine Phosphokinase 69 U/L (26-192); Troponin I < 0.02 ng/mL (0.0-0.045)
[2020-02-19] MEDS ORDERED: ROSUVASTATIN 10 MG TAB PO SCH (21:00)
[2020-02-19] MEDS ORDERED: ATORVASTATIN 40 MG TAB PO SCH (21:00)
[2020-02-20 03:07] LABS: CKMB Creatine Kinase MB < 1.0 ng/mL (0.3-3.6); Creatine Phosphokinase 74 U/L (26-192); Troponin I < 0.02 ng/mL (0.0-0.045)
[2020-02-20] MEDS ORDERED: METOPROLOL TAR 25 MG TAB PO SCH (06:00)
[2020-02-20] MEDS ORDERED: NA CHLORIDE 0.9% 1,000 ML ONE (06:14)
[2020-02-20] MEDS ORDERED: LIDOCAINE 1% 20 ML MDV ONE (08:11)
[2020-02-20] MEDS ORDERED: HEPA 1000U/500MLS 2,000 UNIT/1,000 ML BAG IV ONE (08:11)
--- NOTE | 2020-02-20 08:58 | ECHO ---
HEIGHT: 5 ft 1 in WEIGHT: 290 lb 0 oz DATE OF STUDY: 02/19/[address]: Rob Soto DO 2-DIMENSIONAL: YES M.MODE: YES DOPPLER: YES COLOR FLOW: YES TDS: YES PORTABLE: NO DEFINITY: NO BUBBLE STUDY: NO DIAGNOSIS: UNSTABLE ANGINA, HYPERTENSION CARDIAC HISTORY: CATHERIZATION: NO SURGERY: NO PROSTHETIC VALVE: NO PACEMAKER: NO MEASUREMENTS (cm) DIASTOLIC (NORMALS) SYSTOLIC (NORMALS) IVSd 1.1 (0.6-1.2) LA Diam 3.1 (1.9-4.0) LVEF 78% LVIDd 3.7 (3.5-5.7) LVIDs 2.0 (2.0-3.5) %FS 46% LVPWd 1.2 (0.6-1.2) Ao Diam 2.4 (2.0-3.7) 2 DIMENSIONAL ASSESSMENT: RIGHT ATRIUM: LEFT ATRIUM: RIGHT VENTRICLE: LEFT VENTRICLE: TRICUSPID VALVE: MITRAL VALVE: PULMONIC VALVE: AORTIC VALVE: PERICARDIAL EFFUSION: AORTIC ROOT: LEFT VENTRICULAR WALL MOTION: DOPPLER/COLOR FLOW: COMMENTS: VERY POOR WINDOWS. LEFT VENTRICULAR APPEARS NORMAL WITH LEFT VENTRICULAR EJECTION FRACTION OF 55-60%. UNABLE TO EVALUATE FURTHER DUE TO POOR WINDOWS. TECHNOLOGIST: Anthony TAVERAS
[2020-02-20] MEDS ORDERED: ENOXAPARIN 40 MG/0.4 ML SQ SCH (09:00)
[2020-02-20] MEDS ORDERED: ASPIRIN EC 81 MG TAB PO SCH (09:00)
[2020-02-20] MEDS ORDERED: LOSARTAN POTASSIUM 50 MG TABLET PO SCH (09:00)
--- NOTE | 2020-02-20 09:07 | P.PN ---
Subjective Date of Service: 02/20/20 Primary Care Provider: Dr. Medina; Cardiology-Dr. Garcia Chief Complaint: Chest pain Subjective: Improving Physical Examination - Vital Signs Temperature: 97 F Blood Pressure: 116/54 Pulse: 71 Respirations: 18 Pulse Ox (%): 93 - Physical Exam General: Alert, In no apparent distress, Oriented x3, Cooperative HEENT: Atraumatic Neck: Supple Respiratory: Clear to auscultation bilaterally, Normal air movement Cardiovascular: Normal pulses, Regular rate/rhythm Gastrointestinal: Normal bowel sounds, Soft and benign, Non-distended, No masses, No rebound, No guarding Neurological: Normal speech, Normal strength at 5/5 x4 extr, Normal tone, Normal affect - Studies Laboratory Data (last 24 hrs) 02/20/20 02:39: Troponin I < 0.02 02/19/20 18:32: Troponin I < 0.02 02/19/20 11:30: Sodium 140, Potassium 4.0, BUN 11, Creatinine 0.94, Glucose 103, Magnesium 2.6 H, Troponin I < 0.02, Triglycerides 200 H, Cholesterol 188, HDL Cholesterol 38 L, Cholesterol/HDL Ratio 4.95 02/19/20 11:30: PT 12.1, INR 1.03 02/19/20 11:30: WBC 8.5 D, Hgb 14.5, Hct 44.0, Plt Count 215 Medications List Reviewed: Yes Assessment & Plan Discharge Plan: Home Plan to discharge in: 24 Hours Physician Review Additional Text: Impression: Chest pain suspect unstable angina Hypertension Mixed hyperlipidemia Suspect underlying obstructive sleep apnea Obesity, BMI 54.8 Plan: Patient to have heart catheterization today. Echocardiogram unremarkable. Patient with significant family history of CAD. Blood pressure controlled. LDL 110, triglycerides 200. Will start Lipitor and fish oil. Continue blood pressure medication. Await further recommendations from cardiology after heart catheterization. Patient may have underlying obstructive sleep apnea. Will recommend sleep study as an outpatient. Anticipate possible discharge later today after heart catheterization if unremarkable. Time Spent Managing Pts Care (In Minutes): 55
[2020-02-20] MEDS ORDERED: HEPARIN 5000 UNIT/ML 1 ML VIAL ONE (09:49)
[2020-02-20] MEDS ORDERED: ATROPINE SULF 1 MG/10 ML SYR IV ONE (09:50)
[2020-02-20] MEDS ORDERED: FENTANYL CITR 100 MCG/2 ML ONE (09:50)
[2020-02-20] MEDS ORDERED: VERAPAMIL HCL 10 MG/4 ML VIAL IV ONE (09:50)
[2020-02-20] MEDS ORDERED: HEPARIN 10,000 UNIT/10 ML VIAL IV ONE (09:50)
[2020-02-20] MEDS ORDERED: MIDAZOLAM HCL 2 MG/2 ML INJ ONE (09:50)
[2020-02-20] MEDS ORDERED: NITROGLYCERIN 100 MCG/ML SYR (for cath lab use only) IV ONE (09:50)
--- NOTE | 2020-02-20 10:32 | OP ---
Date of Procedure: 02/20/2020 Surgeon: ARIE OLVERA Procedures Performed: 1.Selective coronary angiogram. 2.Left heart catheterization. Indications: 1.Unstable angina. 2.Shortness of breath. Complications: None. Access: Right radial artery 6-Dominican closed with TR band. Total sedation time was 15 minutes. Description Of Procedure: After the risks, benefits, and alternatives were explained, the patient ag stephanie to procedure and signed informed consent. The patient was brought into the cardiac catheterizat ion laboratory, prepped and draped in usual sterile fashion and then used fentanyl and Versed in incr emental doses to achieve adequate moderate sedation. Then, we took pediatric micropuncture kit and a ccessed right radial artery and then we put a 6-Dominican Slender sheath and took 5-Dominican [place] cathete r into the aortic root, engaged the left main and then right coronary artery, took standard views and then pushed the catheter over the wire into the LV across the aortic valve, recorded LVEDP and then upon pullback, there was no difference in pressure. Then, we removed the catheter and sheath and myron monica TR band. Good hemostasis. Findings: 1.Left main is large, normal. 2.Lad, moderate size and normal. 3.LCX is a small to moderate and normal. 4.RCA, large dominant and normal. 5.LVEDP of 7 mmHg. Conclusion: 1.Normal coronary arteries. 2.Normal LVEDP of 7 mmHg. Recommendations: Search for other etiologies for chest pain and the patient can be released home fro m cardiac standpoint. We will follow up on as-needed basis. /KEITH Voice ID: [id number] Report ID: [id number]
--- NOTE | 2020-02-20 12:36 | P.DS ---
Admission Date: 02/19/20 Discharge Date: 02/20/20 Primary Care Provider: Dr. Medina; Cardiology-Dr. Olvera Disposition: ROUTINE DISCHARGE Discharge Condition: GOOD Reason for Admission: Chest pain Consultations: Cardiology-Dr. Olvera Procedures: ECHO: COMMENTS: VERY POOR WINDOWS. LEFT VENTRICULAR APPEARS NORMAL WITH LEFT VENTRICULAR EJECTION FRACTION OF 55-60%. UNABLE TO EVALUATE FURTHER DUE TO POOR WINDOWS. Heart Catheterization: Date of Procedure: 02/20/2020 Surgeon: ARIE OLVERA Procedures Performed: 1. Selective coronary angiogram. 2. Left heart catheterization. Findings: 1. Left main is large, normal. 2. Lad, moderate size and normal. 3. LCX is a small to moderate and normal. 4. RCA, large dominant and normal. 5. LVEDP of 7 mmHg. Conclusion: 1. Normal coronary arteries. 2. Normal LVEDP of 7 mmHg. Medical Problem List: Chest pain with normal cardiac cath GERD Hypertension Mixed hyperlipidemia Suspect underlying obstructive sleep apnea Obesity, BMI 54.8 Brief History of Present Illness: 44-year-old female with history of hypertension. Patient presented with chest pain for the last 2-3 days. Chest pain would come and go. She rated the pain more like a pressure. Pain would radiate to the back and neck. It was associated with some headaches and shortness of breath. She went to see the digital photographic printer this morning. Cardiology suspects unstable angina. Patient admitted for further evaluation. Cardiology plans for heart catheterization. Patient with significant family history of father having UT with CABG at age 45. Patient was a direct admit to the floor. Patient without chest pain upon admission. She did report that she was seen Sunday in the emergency room. She was tested for COVID at that time which was negative. She also had a CT chest that showed no pulmonary embolism. Her D-dimer was elevated at that time. Hospital Course: Patient presented with chest pain. She was a direct admit from cardiology. Cardiology recommended heart catheterization due to her history. Heart catheterization unremarkable. Patient will be discharged home. Patient may require GI evaluation as an outpatient to further address. This maybe GERD related. Will recommend to increase Pepcid to 20 mg 1 pill twice daily. Patient would benefit with EGD evaluation to further address. Patient with hypertension. At discharge she will continue with her current medication metoprolol. Recommend to maintain blood pressure less than 130/80. Further adjustment can be done by her PCP Patient found to have mixed hyperlipidemia. LDL 110. Triglycerides 200. Recommend lifestyle modification education. Recommend to recheck lab-fasting lipid panel in 4-6 weeks to readdress. If still abnormal will recommend medication. This can be further addressed by her PCP. Patient may have underlying obstructive sleep apnea. Recommend evaluation by pulmonology as an outpatient to further address. Patient would benefit with sleep study as an outpatient. Vital Signs/Physical Exam: Temp Pulse Resp BP Pulse Ox 96.9 F 83 18 131/78 93 02/20/20 10:42 02/20/20 11:42 02/20/20 11:42 02/20/20 11:42 02/20/20 09:07 General: Alert, In no apparent distress, Oriented x3, Cooperative HEENT: Atraumatic Neck: Supple Respiratory: Clear to auscultation bilaterally, Normal air movement Cardiovascular: Normal pulses, Regular rate/rhythm Gastrointestinal: Normal bowel sounds, Soft and benign, Non-distended, No tenderness, No masses, No rebound, No guarding Musculoskeletal: No erythema, No tenderness, No warmth Integumentary: No tenderness/swelling, No erythema, No warmth, No cyanosis Neurological: Normal speech, Normal strength at 5/5 x4 extr, Normal tone, Normal affect Laboratory Data at Discharge: WBC 8.5 K/uL (4.3-10.9) D 02/19/20 11:30 Hgb 14.5 g/dL (12.0-15.0) 02/19/20 11:30 Hct 44.0 % (36.0-45.0) 02/19/20 11:30 Plt Count 215 K/uL (152-406) 02/19/20 11:30 PT 12.1 SECONDS (9.5-12.5) 02/19/20 11:30 INR 1.03 02/19/20 11:30 Sodium 140 mmol/L (136-145) 02/19/20 11:30 Potassium 4.0 mmol/L (3.5-5.1) 02/19/20 11:30 BUN 11 mg/dL (7-18) 02/19/20 11:30 Creatinine 0.94 mg/dL (0.55-1.3) 02/19/20 11:30 Glucose 103 mg/dL (74-106) 02/19/20 11:30 Magnesium 2.6 mg/dL (1.8-2.4) H 02/19/20 11:30 Troponin I < 0.02 ng/mL (0.0-0.045) 02/20/20 02:39 Triglycerides 200 mg/dL (<150) H 02/19/20 11:30 Cholesterol 188 mg/dL (<200) 02/19/20 11:30 HDL Cholesterol 38 mg/dL (40-60) L 02/19/20 11:30 Cholesterol/HDL Ratio 4.95 02/19/20 11:30 Home Medications: ALPRAZolam [Xanax*] 0.5 mg PO BID PRN 02/19/20 Famotidine [Pepcid*] 1 tab PO DAILY 02/19/20 Metoprolol Succinate [Toprol Xl*] 50 mg PO DAILY 02/19/20 Patient Discharge Instructions: Follow up with PCP in 1 week. Patient presented with chest pain. She was a direct admit from cardiology. Cardiology recommended heart catheterization due to her history. Heart catheterization unremarkable. Patient will be discharged home. Patient may require GI evaluation as an outpatient to further address. This maybe GERD related. Will recommend to increase Pepcid to 20 mg 1 pill twice daily. Patient would benefit with EGD evaluation to further address. Patient with hypertension. At discharge she will continue with her current medication metoprolol. Recommend to maintain bl ood pressure less than 130/80. Further adjustment can be done by her PCP. Patient found to have mixed hyperlipidemia. LDL 110. Triglycerides 200. Recommend lifestyle modification education. Recommend to recheck lab-fasting lipid panel in 4-6 weeks to readdress. If still abnormal will recommend medication. This can be further addressed by her PCP. Patient may have underlying obstructive sleep apnea. Recommend evaluation by pulmonology as an outpatient to further address. Patient would benefit with sleep study as an outpatient. Diet: AHA Activity: Ad elizabeth Time spent managing pt's care (in minutes): 55
[2020-02-20 14:00] VITALS: BP 130/80; TEMP 97.9
--- NOTE | 2020-02-20 14:31 | RAD REPORT ---
EXAM DESCRIPTION: - CP - 02/20/2020 1:57 pm CLINICAL HISTORY: dizziness, chest pain COMPARISON: No comparisons TECHNIQUE: Real-time sonographic evaluation of bilateral carotid and vertebral systems was performed . Meredith scale and Doppler interrogation were performed with waveform tracing bilaterally. FINDINGS: Normal high resistance waveforms are noted in both external carotid arteries. The common c arotid arteries and internal carotid arteries show normal low resistance waveforms. No significant plaque formation is seen. Bilateral internal carotid artery tortuosity noted. Peak sys tolic and end diastolic velocity values and the ICA/CCA ratios are in the non-hemodynamically signifi cant range. No dissection. Antegrade flow seen in both vertebral arteries. Velocity values and ratios were recorded and are retained in the patient's imaging records. IMPRESSION: No significant atherosclerotic changes noted. No evidence of a hemodynamically significant stenosis.
== END 2020-02-20 14:24 | disposition home or self-care (01) ==
LOC: 4TH 09:52
PROVIDERS: ADMIT Family Medicine; ATTEND Family Medicine
DX: R07.9 Chest pain, unspecified (principal); K21.9 Gastro-esophageal reflux disease without esophagitis; I10 Essential (primary) hypertension; E78.2 Mixed hyperlipidemia; E66.9 Obesity, unspecified; Z68.43 Body mass index [BMI] 50.0-59.9, adult
CPT/HCPCS: 93306; 85025; 80048; 36415; 83735; 82550 ×3; 85610; 80061; 84484 ×3; 82553 ×3; 93458; 93880; C1893; J1644 ×2; J2250; J3010; J7030

== ENCOUNTER 2021-11-29 08:35 | Observation (INO) | payer BC, OTHER ==
--- OUTSIDE RECORDS SUMMARY | 2021-11-29 08:39 | XMS REPORT | Continuity of Care Document ---
:[address] [facility] t Address [address] [place] [address] Care Team Providers Name Role Phone Pcp, Patient Does Not Have A Primary Care Physician [id number] Linda Medina Attending Clinician Unavailable ANTWAN WRIGHT Attending Clinician Unavailable ANTWAN WRIGHT Attending Clinician Unavailable Kyle ROSENBERG, Antwan Krishnamurthy Attending Clinician Candis ROSENBERG, Minh Attending Clinician Isabela EASON, Slick Perales Attending Clinician Antwan Wright MD Attending Clinician Nina Lockwood RD Attending Clinician Sanam Álvarez RN Attending Clinician Unavailable DWIGHT JACKSON Attending Clinician Unavailable Only, Ang Db Test Attending Clinician Unavailable Renetta ELLISPDwight Attending Clinician JACEK CARMICHAEL Attending Clinician Unavailable NINA LOCKWOOD Attending Clinician Unavailable HODA PATEL Attending Clinician Unavailable OSCAR KILPATRICK Attending Clinician Unavailable ASYA BLACKMON Attending Clinician Unavailable Beatris Jauregui Admitting Clinician Unavailable ANTWAN WRIGHT Admitting Clinician Unavailable SANDRA RUDD Admitting Clinician Unavailable Payers Payer Name Policy Type Policy Number Effective Date Expiration Date S ourjossy CIGNA [id number] 2018 HMO/POS/OPEN 00:00:00 ACCESS HMO/POS OPEN [id number] 2018 2018 00:00:00 ACCESS - CIGNA 00:00:00 CVCP-CIGNA PPO [id number] OPEN ACCESS [id number] HMO/POS/EPO/PPO - AETNA Problems Condition Condition Condition Status Onset Resolution Last Treating Co mments Source Name Details Category Date Date Treatment Clinician Date Obesity, Obesity, Disease Active [facility] mor[facility] morbid 12[facility]07 [facility] 00:00: Medical 00 Center Sleep-diso Sleep-diso Disease Active Last [facility]: t & Plan: o f 00 Formattin Medicin g of this e note might be different from the original. Patient with history and obesity suggestiv e of sleep disordere d breathing .In addition, patient has associate d non-vandana rative sleep, nocturnal awakening , snoring, daytime sleepines s, and hypertens ion. Discussed with patient the pathophys iology of sleep apnea, diagnosis , and treatment options.W ill order a sleep study and further managment as indicated . Elevated Elevated Disease Active [facility] troponin troponin 10-12 Lu 00:00: Medical 00 [place] Chest Chest Disease Active [facility] unspecifie unspecifie 00:00: Me dical d type d type 00 Center Allergies, Adverse Reactions, Alerts Allergy Allergy Status Severity Reaction(s) Onset Inactive Treating Comm ents Source Name Type Date Date Clinician NO KNOWN Drug Active Univers ALLERGIE Class ity of S [facility] NO KNOWN Allergy Active [facility] ALLERGIE S Social History Social Habit Start Date Stop Date Quantity Comments Source Exposure to Not sure [facility] Colleg e SARS-CoV-2 (event) of Med icine History SDOH [facility] Alcohol Std Drinks Medica l Center History SDOH [facility] Alcohol Binge Medical N[place] ter History SDOH [facility] Alcohol Comment Medical C enter Alcohol intake 2020-12-07 2020-12-[address] [facility] es 00:00:00 00:00:00 non-drinker of Medical Ce nter alcohol (finding) History SDOH 2018-10-12 2018-10-[address] [facility] Alcohol Frequency 00:00:00 00:00:00 Medical Center Tobacco use and 2018-10-11 2018-10-[address] [facility] [address] [facility] exposure 00:00:00 00:00:00 [facility] Center Sex Assigned At [address] [facility] 00:00:00 00:00:00 Medical Center Smoking Status Start Date Stop Date Source Unknown if ever smoked [facility] Never sm[facility] Med ical [place] Medications Ordered Filled Start Stop Current Ordering Indication Dosage Frequency Signature Comments Components Source Medication Medication Date Date Medication? Clinician (SIG) Name Name metoprolol Yes 50mg QD Take [address] (TOPROL-XL) 9-30 by mouth Luke s 50 MG 24 hr 10:58: daily. Medi yvrose tablet 51 Center albuterol Yes 1{puff} Inhale [address] HFA 9-30 puff by [facility] (VENTOLIN 10:58: mouth via Med ical HFA) 90 51 inhaler Center mcg/actuati every 6 on inhaler (six) hours as needed for Wheezing. acetaminoph 2020- No 1000mg Take 31.[address] en 9-30 10-07 mLs (1,000 [facility] (TYLENOL) 00:00: 23:59 mg total) Me dical 160 mg/5 mL 00 :00 by mouth Cent er Susp oral every 6 suspension (six) hours as needed (pain) for up to 7 days. ondansetron 2020- No 4mg Take [address] (ZOFRAN) 4 9-30 10-07 tablet (4 Trevor es MG tablet 00:00: 23:59 mg total) Me dical 00 :00 by mouth 2 Center (two) times daily as needed for Nausea for up to 7 days. cyclobenzap 2020- No 10mg Take [address] rine 12-09 10-07 tablet (10 [facility] (FLEXERIL) 00:00: 23:59 mg total) M edical 10 MG 00 :00 by mouth 3 Center tablet (three) times daily as needed for Muscle spasms for up to 7 days. ondansetron 2020- No 4mg Take [address] (ZOFRAN) 4 12-09 tablet (4 Trevor es MG tablet 00:00: 00:00 mg total) Me dical 00 :00 by mouth 2 Center (two) times daily as needed for Nausea for up to 7 days. acetaminoph 2020- No 1000mg Take 31.[address] en 12-0930 mLs (1,000 [facility] (TYLENOL) 00:00: 00:00 mg total) Me dical 160 mg/5 mL 00 :00 by mouth Cent er Susp oral every 6 suspension (six) hours as needed (pain) for up to 7 days. alprazolam Yes .5mg Take 0.5 [facility] to[facility] (XANAX) 0.5 9-23 mg by College MG tablet 10:18: mouth of 04 nightly as Medicin needed for e Sleep. alprazolam Yes .5mg Take 0.5 [facility] (XANAX) 0.5 9-23 mg by College MG tablet 10:18: mouth of 04 nightly as Medicin needed for e Sleep. metoprolol 2020- No 1{tbl} Take 1 [facility] (TOPROL-XL) 12-02 Tablet by Co llege 50 MG XL 10:17: 00:00 mouth of tablet 43 :00 daily. Medicin e metoprolol 2020- No 1{tbl} Take 1 [facility] (TOPROL-XL) 12-02 Tablet by Co llege 50 MG XL 10:17: 00:00 mouth of tablet 43 :00 daily. Medicin e pantoprazol 2020- No 20mg Take 1 [facility] to[facility] e 12-02 Tablet by [facility] (PROTONIX) 00:00: 05:59 mouth of 20 MG 00 :00 daily for Medicin tablet 90 days. e Take everyday for 3 months pantoprazol 2020- No 20mg Take 1 [facility] to[facility]y e 12-02 Tablet by [place] (PROTONIX) 00:00: 05:59 mouth of 20 MG 00 :00 daily for Medicin tablet 90 days. e Take everyday for 3 months tramadol 2020- No 1{tbl} Take 1 [facility] (ULTRAM) 50 12-02 Tablet by Co llege MG tablet 00:00: 04:59 mouth of 00 :00 every 8 Medicin hours as e needed for Pain for up to 7 days. Take after surgery as needed for pain ondansetron 2020- No 4mg Take 1 [facility] (ZOFRAN-ODT 12-02 Tablet by Co llege ) 4 mg 00:00: 04:59 mouth of disintegrat 00 :00 every 8 Medic in ing tablet hours as e needed for Nausea for up to 7 days. Take after surgery as needed for nausea tramadol 2020- No 1{tbl} Take 1 [facility] (ULTRAM) 50 12-02 Tablet by Co llege MG tablet 00:00: 04:59 mouth of 00 :00 every 8 Medicin hours as e needed for Pain for up to 7 days. Take after surgery as needed for pain ondansetron 2020- No 4mg Take 1 [facility] (ZOFRAN-ODT 12-02 Tablet by Co llege ) 4 mg 00:00: 04:59 mouth of disintegrat 00 :00 every 8 Medic in ing tablet hours as e needed for Nausea for up to 7 days. Take after surgery as needed for nausea aprepitant 2020- No 40mg Take 1 [facility] (EMEND) 40 12-02 capsule by Co llege MG capsule 00:00: 04:59 mouth once of 00 :00 for 1 Medicin dose. Take e 2 hours before surgery Scopolamine 2020- No 1{patch Place 1 [facility] 1 MG/3DAYS 12-02 } Patch onto Co llege [id number] 00:00: 04:59 the skin of 00 :00 once for 1 Medicin dose. e Apply behind ear. Remove after 3 days- take as needed for nausea aprepitant 2020- No 40mg Take 1 [facility] (EMEND) 40 12-02 capsule by Co llege MG capsule 00:00: 04:59 mouth once of 00 :00 for 1 Medicin dose. Take e 2 hours before surgery Scopolamine 2020- No 1{patch Place 1 [facility] 1 MG/3DAYS 12-02 } Patch onto Co llege [id number] 00:00: 04:59 the skin of 00 :00 once for 1 Medicin dose. e Apply behind ear. Remove after 3 days- take as needed for nausea albuterol Yes 1{puff} Inhale 1-2 [facility] 108 (90 9-07 Puffs by [place]) 00:00: mouth of mcg/act 00 once. Medicin inhaler e albuterol Yes 1{puff} Inhale 1-2 [facility] 108 (90 9-07 Puffs by [facility]) 00:00: mouth of mcg/act 00 once. Medicin inhaler e ondansetron Yes as needed. [facility] (ZOFRAN) 4 1-28 College MG tablet 00:00: of 00 Medicin e ondansetron Yes 4mg Take 4 mg [facility] (ZOFRAN) 4 1-28 by mouth Colle ge MG tablet 00:00: as needed. of Medicin e ondansetron Yes 4mg Take 4 mg [facility] (ZOFRAN) 4 1-28 by mouth Colle ge MG tablet 00:00: as needed. of 00 Medicin e alprazolam 2019-03 Yes 1{tbl} Take 1 [facility] (XANAX) 0.5 2- Tablet by Col lege MG tablet 00:00: mouth of 00 daily. Medicin e alprazolam 2019-03- No 1{tbl} Take 1 [facility] (XANAX) 0.5 04-20 Tablet by Co llege MG tablet 00:00: 00:00 mouth of 00 :00 daily. Medicin e alprazolam 2019-03- No 1{tbl} Take 1 [facility] (XANAX) 0.5 04-20 Tablet by Co llege MG tablet 00:00: 00:00 mouth of 00 :00 daily. Medicin e metoprolol Yes [facility] (LOPRESSOR) 10-10 [place] 50 MG 00:00: of tablet 00 Medicin e metoprolol Yes [facility] (LOPRESSOR) 10-10 [place] 50 MG 00:00: of tablet 00 Medicin e metoprolol Yes [facility] (LOPRESSOR) 10-10 [place] 50 MG 00:00: of tablet 00 Medicin e Metoprolol Metoprolol Yes Na Medina 1 tablet Common Succinate Succinate Spiri t ER [facility] Immunizations Ordered Immunization Filled Immunization Date Status Commen ts Source Name Name Influenza [facility] 2019-11-18 Completed [facility] 00:00:00 of Medicine Influenza [facility] 2019-11-18 Completed [facility] 00:00:00 of Medicine Influenza [facility] 2019-11-18 Completed [facility] 00:00:00 of Medicine Vital Signs Vital Name Observation Time Observation Value Comments Source HEIGHT 2020-12-07 07:35:00 154.9 cm WEIGHT 2020-12-07 07:35:00 137.5 kg HEIGHT 2020-12-06 11:57:00 154.9 cm WEIGHT 2020-12-06 11:57:00 136.079 kg HEIGHT 2020-12-07 07:35:00 154.9 cm WEIGHT 2020-12-07 07:35:00 137.5 kg HEIGHT 2020-12-06 11:57:00 154.9 cm WEIGHT 2020-12-06 11:57:00 136.079 kg HEIGHT 2020-12-07 07:35:00 154.9 cm WEIGHT 2020-12-07 07:35:00 137.5 kg HEIGHT 2020-12-06 11:57:00 154.9 cm WEIGHT 2020-12-06 11:57:00 136.079 kg Systolic blood 2020-12-02 15:15:00 151 mm[Hg] [facility] of pressure Medicine Diastolic blood 2020-12-02 15:15:00 91 mm[Hg] [facility] pressure Medicine Heart rate 2020-12-02 15:15:00 83 /min [facility] Body temperature 2020-12-02 15:15:00 36.44 Paula [facility] Body height 2020-12-02 15:15:00 154.9 cm [facility] Body weight 2020-12-02 15:15:00 137.893 kg [facility] BMI 2020-12-02 15:15:00 57.44 kg/m2 [facility] Systolic blood 2020-12-09 07:45:00 150 mm[Hg] [facility] Diastolic blood 2020-12-09 07:45:00 65 mm[Hg] [facility] Heart rate 2020-12-09 07:45:00 75 /min [facility] Body temperature 2020-12-09 07:45:00 36 Paula [facility] Respiratory rate 2020-12-09 07:45:00 18 /min [facility] Oxygen saturation in 2020-12-09 07:45:00 96 /min [facility] Arterial blood by Medical Ce nter Pulse oximetry Body height 2020-12-07 07:35:00 154.9 cm [facility] Body weight 2020-12-07 07:35:00 137.5 kg [facility] BMI 2020-12-07 07:35:00 57.28 kg/m2 [facility] Procedures Procedure Date / Time Performed Performing Clinician Anil loja POCT-GLUCOSE METER 2020-12-09 09:30:00 Antwan Wright [facility] POCT-GLUCOSE METER 2020-12-08 20:33:00 Antwan Wright [facility] POCT-GLUCOSE METER 2020-12-08 15:52:00 [facility] POCT-GLUCOSE METER 2020-12-08 11:43:00 [facility] POCT-GLUCOSE METER 2020-12-08 08:07:00 [facility] PO[facility]UCOSE METER 2020-12-07 16:24:[address] [facility] ANESTHESIA PERIPHERAL 2020-12-07 11:57:42 Elias Reese [facility] TISSUE EXAM 2020-12-07 10:25:00 [facility] GASTRECTOMY, SLEEVE, 2020-12-07 09:34:00 MatAntwan luu [facility] LAPAROSCOPIC [facility] ABORH, MANUAL 2020-12-07 08:23:00 Ofelia Monroe [facility] POCT , URINE 2020-12-07 07:35:00 Silvestre [facility] POCT-GLUCOSE METER 2020-12-07 07:31:[address] [facility] URINALYSIS W/ REFLEX 2020-12-07 07:24:00 Yunior Amanda [facility] URINE CULTURE [facility] TYPE AND SCREEN, 2020-12-07 07:24:00 Silvestre [facility] ANTIBODY SCREEN 2020-12-07 07:24:00 Silvestre [facility] SARS-COV2/RT-PCR ([facility] & 2020-12-02 13:01:00 MatAntwan luu [facility] REF LABS) Medical [place] HEMOGLOBIN 2020-12-02 13:01:00 Slick Mar [facility] CREATININE 2020-12-02 13:01:00 Slick Mar [facility] BUN 2020-12-02 13:01:00 Slick Mar [facility] ELECTROLYTE PANEL 2020-12-02 13:01:00 Slick Mar [facility] ECG 12-LEAD 2020-12-02 13:00:19 Slick Mar [facility] ECG 12-LEAD 2020-12-02 13:00:19 Unknown, Hl7 Doctor [facility] Plan of Care Planned Activity Planned Date Details Comments Source Future Scheduled 2021-11-10 INFLUENZA VACCINE (#1) [facility] 00:00:00 [code = INFLUENZA VACCINE Me dical Center (#1)] Future Scheduled 2021-10-13 Lipid panel (procedure) [facility] Test 00:00:00 [code = 78590245] Medical Ce nter Future Scheduled 2021-03-[address] [facility] Test 00:00:00 (12+) [code = DEPRESSION Med ica Center SCREENING (12+)] Future Scheduled 2020-12-02 BMI FOLLOW UP PLAN [code [facility] of Test 10:18:21 = BMI FOLLOW UP PLAN] Medici ne Future Scheduled 2020-12-02 BMI FOLLOW UP PLAN [code [facility] of Test 10:18:21 = BMI FOLLOW UP PLAN] Medici ne Future Scheduled 2020-12-02 Screening for malignant [facility] of Test 10:16:22 neoplasm of colon Medicine (procedure) [code = 566756079] Future Scheduled 2020-12-02 Screening for malignant [facility] of Test 10:16:22 neoplasm of breast Medicine (procedure) [code = 025147652] Future Scheduled 2020-12-02 COVID-19 Vaccine (1) [facility] Test 10:16:22 [code = COVID-19 Vaccine Med icine (1)] Future Scheduled 2020-12-02 TETANUS SHOT (ADULT) [facility] Test 10:16:22 [code = TETANUS SHOT Medicin e (ADULT)] Future Scheduled 2020-12-02 Hepatitis C screening Ba [facility] Test 10:16:22 (procedure) [code = Medicine 693804268] Future Scheduled 2020-12-02 Human immunodeficiency B [facility] of Test 10:16:22 virus screening Medicine (procedure) [code = 645730603] Future Scheduled 2020-12-02 Screening for malignant [facility] of Test 10:16:22 neoplasm of cervix Medicine (procedure) [code = 254315370] Future Scheduled 2020-12-02 FLU VACCINE > 6 MONTHS B [facility] of Test 10:16:22 [code = FLU VACCINE > 6 Medi cine MONTHS] Future Scheduled 2020-12-02 Screening for malignant [facility] of Test 10:16:22 neoplasm of colon Medicine (procedure) [code = 632137946] Future Scheduled 2020-12-02 Screening for malignant [facility] of Test 10:16:22 neoplasm of breast Medicine (procedure) [code = 008967012] Future Scheduled 2020-12-02 COVID-19 Vaccine (1) [facility] of Test 10:16:22 [code = COVID-19 Vaccine Med icine (1)] Future Scheduled 2020-12-02 TETANUS SHOT (ADULT) [facility] of Test 10:16:22 [code = TETANUS SHOT Medicin e (ADULT)] Future Scheduled 2020-12-02 Hepatitis C screening [facility] of Test 10:16:22 (procedure) [code = Medicine 278084541] Future Scheduled 2020-12-02 Human immunodeficiency B [facility] of Test 10:16:22 virus screening Medicine (procedure) [code = 373060556] Future Scheduled 2020-12-02 Screening for malignant [facility] of Test 10:16:22 neoplasm of cervix Medicine (procedure) [code = 488563080] Future Scheduled 2020-12-02 FLU VACCINE > 6 MONTHS B [facility] of Test 10:16:22 [code = FLU VACCINE > 6 Medi cine MONTHS] Future Scheduled 2020-11-19 Screening for malignant [facility] of Test 11:51:07 neoplasm of colon Medicine (procedure) [code = 607217068] Future Scheduled 2020-11-19 Screening for malignant [facility] of Test 11:51:07 neoplasm of breast Medicine (procedure) [code = 353910602] Future Scheduled 2020-11-19 COVID-19 Vaccine (1) [facility] Test 11:51:07 [code = COVID-19 Vaccine Med icine (1)] Future Scheduled 2020-11-19 TETANUS SHOT (ADULT) [facility] of Test 11:51:07 [code = TETANUS SHOT Medicin e (ADULT)] Future Scheduled 2020-11-19 BMI FOLLOW UP PLAN [code [facility] of Test 11:51:07 = BMI FOLLOW UP PLAN] Medici ne Future Scheduled 2020-11-19 Hepatitis C screening [facility] of Test 11:51:07 (procedure) [code = Medicine 075648275] Future Scheduled 2020-11-19 Human immunodeficiency [facility] Test 11:51:07 virus screening Medicine (procedure) [code = 063017951] Future Scheduled 2020-11-19 Screening for malignant [facility] of Test 11:51:07 neoplasm of cervix Medicine (procedure) [code = 317792483] Future Scheduled 2020-11-19 FLU VACCINE > 6 MONTHS B [facility] of Test 11:51:07 [code = FLU VACCINE > 6 Medi cine MONTHS] Future Scheduled 1996 Screening for malignant [facility] Test 00:00:00 neoplasm of cervix Medical C enter (procedure) [code = 907713069] Future Scheduled 1994 DTAP/TDAP/TD VACCINES ([address] [facility] Test 00:00:00 - Tdap) [code = Medical Cent er DTAP/TDAP/TD VACCINES (1 - Tdap)] Future Scheduled 1993 HEPATITIS C [facility]CRE[facility]ING [facility] Test 00:00:00 [code = HEPATITIS C Medical Center SCREENING] Future Scheduled 1975 COVID-19 VACCINE (#1) [facility] 00:00:00 [code = COVID-19 VACCINE [facility] (#1)] Future Scheduled 1975 CT Colonography (combo) [facility] Test 00:00:00 [code = CT Colonography [facility] (combo)] Future Scheduled 1975 Screening for malignant [facility] Test 00:00:00 neoplasm of colon Medical Ce nter (procedure) [code = 622577795] Future Scheduled 1975 Screening for malignant [facility] Test 00:00:00 neoplasm of colon Medical Ce nter (procedure) [code = 586444497] Future Scheduled 1975 Screening for malignant [facility] Test 00:00:00 neoplasm of colon Medical Ce nter (procedure) [code = 803357056] Future Scheduled 1975 Screening for malignant [facility] Test 00:00:00 neoplasm of colon Medical Ce nter (procedure) [code = 620797894] Future Scheduled 1975 Sigmoidoscopy [code = [facility] Test 00:00:00 Sigmoidoscopy] Medical Cente r Encounters Start End Encounter Admission Attending Care Care Encounter Source Date/Time Date/Time Type Type Clinicians Facility Department ID 2021-05-16 Outpatient Linda Medina STLMLC [facility] [id number] Common 08:38:00 [facility] 2021-04-06 Outpatient Medina, Na STLMLC STLMLC [id number] Common 13:43:07 [id number] [facility] 2021-04-06 Outpatient Medina, Na STLMLC STLMLC [id number] Common 13:42:50 [id number] [facility] 2021-04-06 Outpatient Medina, Na STLMLC STLMLC [id number] Common 13:30:55 [id number] [facility] 2021-04-06 Outpatient Medina, Na STLMLC STLMLC [id number] Common 13:30:39 [id number] [facility] 2021-04-06 Outpatient Medina, Na STLMLC STLMLC [id number] Common 13:29:36 [id number] [facility] 2021-04-06 Outpatient Medina, Na STLMLC STLMLC [id number] Common 11:04:16 [id number] [facility] 2021-04-06 Outpatient Medina, Na STLMLC STLMLC [id number] Common 11:04:05 [id number] [facility] 2020-12-19 Inpatient MK WRIGHT Surgery [id number] [facility] 10:20:45 SAMER 2021-07-13 2021-07-13 ambulatory STLMLC STLMLC [id number] Common 00:00:00 00:00:00 [facility] 2021-05-18 2021-05-18 ambulatory STLMLC STLMLC [id number] Common 00:00:00 00:00:00 [facility] 2021-05-18 2021-05-18 ambulatory STLMLC STLMLC [id number] Common 00:00:00 00:00:00 [facility] 2021-04-19 2021-04-19 ambulatory STLMLC STLMLC [id number] Common 00:00:00 00:00:00 [facility] 2021-01-31 2021-01-[address] [facility] [id number] [place] [address] 09:29:44 13:06:20 [facility] 2020-12-23 2020-12-[address] [facility] [id number] [facility] 12:47:56 13:02:40 SAMER [facility] 2020-12-07 2020-12-09 [facility] [id number] 05:55:00 10:58:00 Encounter [facility] 2020-12-07 2020-12-07 Anesthesia Minh Chirinos [facility] [id number] 09:53:00 12:15:00 Event Slick Mar [facility] 2020-12-07 2020-12-07 Surgery Kyle [facility] [id number] 09:49:00 11:24:00 [facility] 2020-12-06 2020-12-06 [facility] [id number] [facility] [address] 10:30:00 23:59:00 Encounter [facility] 2020-12-06 2020-12-06 Outpatient [facility] [id number] [facility] 00:00:00 00:00:00 2020-12-06 2020-12-[address] [facility] [id number] [facility] 00:[facility]00 00:00:00 [facility] 2020-12-02 2020-12-02 [facility] [id number] 12:00:00 23:59:00 Encounter [facility] 2020-12-02 2020-12-02 Outpatient [facility] [id number] [facility] 00:00:00 23:59:00 [facility] 2020-12-02 2020-12-02 Office JOSE Wright [id number] [facility] 10:06:32 10:36:32 Visit Samesheila Gamil AMBULATOR [id number] College Y [id number] [facility] [id number] [facility] 805 e 2020-12-02 2020-12-02 Outpatient [facility] [id number] [facility] 00:00:00 00:00:00 2020-12-02 2020-12-02 Outpatient EL [facility] [id number] [facility] 00:00:00 00:00:00 2020-12-02 2020-12-02 Outpatient [facility] [id number] [facility] 00:00:00 00:00:00 2020-12-02 2020-12-02 [facility] [id number] 00:00:00 00:00:00 Only [facility] 2020-11-19 2020-11-19 Office JOSE Lockwood [id number] [place] [address] 11:00:00 12:00:00 Visit Nina AMBULATOR 350.1.13.21 College Y 0.2.7.2.686 of [id number] [place] [id number] 2020-11-08 2020-11-08 Letter SLICK Álvarez [id number] [place] [address] 00:00:00 00:00:00 (Out) Sanam LICEA 350.1.13.10 it y of [facility] 4.2.7.2.686 August as [id number] [address] 2020-11-06 2020-11-06 Outpatient R [facility] [id number] Univers 12:15:00 12:15:00 DWIGHT [facility] 2020-11-06 2020-11-06 Laboratory Only, Ang Db Test [facility] 1.2.8 40.114 [id number] Univers 11:44:27 11:59:27 Only Dwight [facility] 350.1.13.10 ity [facility] 4.2.7.2.686 August as Ayden?Blea [id number] [address] Medical Office Building 2020-10-11 2020-10-[address] [facility] [id number] [address] [place] [address] 10:44:57 11:02:01 ANTWAN loja of Medicin e 2020-10-05 2020-10-05 Outpatient [facility] [id number] Common 00:00:00 00:00:00 [facility] 2020-09-08 2020-09-08 Outpatient HOARNOLD, [facility] [id number] [facility] 15:28:39 15:28:39 VIMBAI [facility] 2020-08-18 2020-08-18 Outpatient GRIEHS, [facility] [id number] [facility] 13:24:10 13:50:13 NINA [facility] 2020-07-21 2020-07-21 Outpatient GRIEHS, [facility] [id number] [facility] 13:55:48 14:21:32 NINA [facility] 2020-07-09 2020-07-13 Outpatient GRIEHS, [facility] [id number] [facility] 14:18:30 10:34:21 NINA [facility] 2020-06-23 2020-06-23 Outpatient GRIEHS, [facility] [id number] [facility] 13:22:13 14:12:06 INNA [facility] 2020-05-25 2020-05-25 Outpatient GRIEHS, [facility] [id number] [facility] 09:15:31 09:54:36 NINA [facility] 2020-04-22 2020-04-22 Outpatient GRCARLY, [facility] [id number] [facility] 09:03:50 11:07:27 NINA [facility] 2020-04-19 2020-04-19 Outpatient HATRICK, [facility] [id number] [facility] 07:54:17 08:14:26 EDWARD [facility] 2020-02-27 2020-02-27 Outpatient [facility] [id number] Common 00:00:00 00:00:00 [facility] 2020-02-24 2020-02-24 Outpatient SANDRA KILPATRICK, [facility] [id number] SLE 00:00:00 00:00:00 YOCHAI 2019-06-26 2019-06-26 [facility] [id number] Common 12:21:00 12:21:[address] [facility] 2019-04-10 2019-04-10 Outpatient [facility] [id number] Common 09:40:00 09:40:[address] [facility] 2018-11-05 2018-11-05 Outpatient [facility] [id number] Common 13:37:00 13:37:[address] [facility] 2018-09-03 2018-09-03 Outpatient [facility] [id number] Common 16:20:00 16:20:[address] [facility] Results Test Description Test Time Test Comments Results Result Comments Source Tissue Exam 2020-12-16 19:29:47 Test Item Value Reference Range Interpretation Comme nts Case Report (test code = 104) Surgical Pathology Report Case: [id number] Authorizing Provider: Antwan Wright MD Collected: 12/07/2020 10:25 AM Ordering Location: [facility] Received: 12/07/2020 12:18 PM SERVICES Pathologist: Mihaela Carlos MD Specimen: Stomach, PARTIAL GASTRECTOMY DIAGNOSIS (test code = 3220) s1rgeOEuTSZoh7qoOAHleWGbWtRwIyWdFiSaOd pc dWMxIHtccnRmMVxlcGljOTYwMVxhbnNpXHNwbHRw U0WmdoffPJgvRO3fNJ4tbGuxuNUclVBmRWOiFwHg b8wxg362pNUbt2hzADMIclvafMu9yNnaD19vs6J1 BefeJ35mlFIpIQS5MWVyKOZgtGKyMBDkNML4YNMn iYBfW0wnIRZhTV8wngmeGFqeDNpsPYBmlOZ4QIOp qPMpS1XuOFBsGMwcGSSrild6RrCbQe4xeXXraUuk ULyaIFOmXBJnRLsyJOFfHvDpDK6zS0RQFGJGIFnz M0vDBVSKEWwAX0ECVVCDG63CPSCywaQlNWQeG2eN E87SStFSKfRMOVzQUSODZONOYzzFAPJgCM1LGjsS HYokUBuJCHjeT4oIQOBSM0JADWLAZi0AFW9ASZGy kbDbCTPyFeBYVBQENwSjAq3KBTcQERXLWFrPCXsn XBXTCTJRCKDPFGwwGTyELHpHA3aWCPOGFfPQLHIU WF7QYGDumTHlcTniqvSlNXwwt2BbKUpyZJErSV3e cTiaIGXaIG2rIHHiD7oeiI5gfjb1FvJdOEDpPsC4 PGIdncB5Eee8PHEjYEmnd9obo4YgMNVsPTo9sZtk TpGeWLKel3jdvxEiYmJhWKChWVXzYMHpwJSoL755 a7ljp6bhzvUsjUL2RAIaLXZ7LWoixmRmkfZ0WCcm cBAbGcY2IDawqcAcGCniooQgzqJgPst5HVUuR631 RFY7eVokm7noGJE8QBHdHUIgNhQgZx9giTBmR867 VTHlKQSRZOKlfKr7LDEvgoOiapRrfDXCe276B762 r9hkARIclbNugMoHwcuyj5naG280SGCzrENeuaMz QsDyIXNgyURbqQE0JLUaCA8svhhbRYqhDBzaNHHz bsL4GMRctCLtL5HkDUMzKY4pkshrYTC6HJgtJRRq FQV3PmVyJQKcw0Ofsbe7LpUcec4cja12WBH6f0Gg tVktQNW7QJZ1UpChXt1fpAGtDTBiMA4bAiHmjAVr XWZqaf24eTywYGgvIMF5QEMjtzHkt2Ejy8llZjAa llUhU2dkD2BaFNFhFJZiIOGeMwQvjxIkt6Luu8Js vLXkqLw5r5oyINQxWHGjyYjkz1fxCNA1OPMatKXn Y5rniN5zDBEgOO9ojhqrs7mcMMnmLUecRDOsmZZ9 qmY5CFTszSTcS9XzrU1sETUnEZqdQHZvtrf8EnCb Qt3irRAiyGjbAYnsIfxtZTmaXZJptpKrhjPwtHhw ZGVjXHBsYWluXHBsYWluXGYwXGZzMjRccWxcbGFu BdHwZnHfkBvncLwqFUquAlDqNJNcTVizJ1seQqSp WeUbUiu4NYZlnHBjFUWwPgr8XFEovOMzHYQIuFij yX0dIWYgrHprtY6esBH1WYHuubTcrKHZzE8vQPCA rO7fLmG5KoQgGxI7HFg8McZcaOHpwW6= CPT Code(s) (test code = 4907) f0pzeRGxHKQtvQP6RaTzFSGaj0jgl9NjmTMv cGFy BNltkFBpjxAtgb98oIP5aQ69SN8lSTEoKsS4RUZl tfH2Zvf1ILZfFHJviYIkZ104r0oac8rhypCntYE9 iJrbYQOvktcmAeM1UDenPRKwvseiCLd2XLneZYUk pQT2TGRpaMGtK2TtJSCkAT7trte6WKD2ZDhkXOZv MeL8POJuwUQuEWLhwKexULigs732SLR7JdWcVCNy uwNvlGekkE0kAqYzXYZ7DHPuN7dlRXM1 CLINICAL HISTORY (test code = 5146) j9agoFIhALSppXI3JsAfBQAsy3aia5R sdHBncGFy LSpfhDZmvxErqf69bHB0oF85YG8xRHJbQjJ4CBCk jpE9Cbz7PHAsJATsmDSiG873l5noo1tbesMgaNB5 MEXrHBSdK4EzMZ3uGNWmxERyQ49ziQNeCAB7TJDj XBCqhVUdNZZzVPX1KUUuvLFiB0xeEETxPH1qaupz JPmrSRteHCGciDB4YOIdeFTbK2JwZEIpPTenPWVl xzm4EeOtBl5otLVwxEviSOwfPFLeRTzeRCnxvNUg dJksDKwavJGduftyrvTjJXPkGXVIe2WtpLLwr6Ei s6m2sUodBq6yfZEmHRBkBAprIPI3PQReAxLtLOuv RMtrCNK9pEKgXPMzk7WkgEwaxZEprEBvjwWfukEd j58vGZBbopjdmzjkVES1 SPECIMEN SOURCE (test code = 3377) j1hqwNBgEWPvxVC4WsAmBCExc1kud1Qp dHBncGFy CWwvwXJqtwWyvj67xIW5sB33HD0wBTKdOgY9COBf coQ3Mmv4TQYnFMLozIEcV054f4fwz5cyhvWsyJK6 sNjuDVJvbglmVnS5TGkeGLBkegkaUNd2CPcsMMQi hHT3OBHnuIFeM4LnYMHiNS4gwcm3AWP5JXibQEZr HhE5YUUudJGrETIciZzjKCqor522MDB8JjZxHIMg pfOgcXfpcT3aRxXpOYPWsK3xCMCtNRHmrt1= GROSS DESCRIPTION (test code = 3366) f1rugGYyLWKbnNYfEgNvFZVeXHLhq3 lcZGVmbGFu [file] YXJ9 MICROSCOPIC DESCRIPTION (test code = c7ytxTZsVPCilWZ6GaIxLUVbk9bno8 BsdHBncGFy 3371) PJpgnZMfceGqjw32pEA2rP39LG2uFKHaGnU3UOJr ijG1Nlk5RIDiZBDjfQNoF951n4eil9lxzsNthFW3 pWzbWYEvzhsyBhU7NCmqFGXsqpcnTMh8VObjVOIt sYF9CCLdtCJdB3GdRYQdTC0vjvz1LXN2EDxaXDGc XcK0SLWhpZLdNZEmwCilARifv842ROV9JnKfXIKc tbVqtUjwoC6lYzSnFLYVJOVlv0RyRKFbTLNvcy4= Gross assessment was performed at (test [facility] enter, code = 2777) Department of Pathology, [address] [place] [address] 12443, Technical component was performed at [facility] er, (test code = 2778) Department of Pathology, [address] [place] [address] 41163, Professional component was performed at [facility] enter, (test code = 2779) Department of Pathology, [address] [place] [address] 28[address], [facility] CampusT[facility]UE [id number] 19:29:47Surgical Pathology Report Case: [id number] Authorizing Provider: Antwan Wright MD Collected: 12/07/2020 10:25 AM Ordering Location: [facility] Received: 12/07/2020 12:18 PM SERVICES Pathologist: Mihaela Carlos MD Specimen: Stomach, PARTIAL GASTRECTOMY A. STOMACH, SLEEVE GASTRECTOMY- CHRONIC INACTIVE GASTRITIS, MINIMAL- MILD, WITH FOCAL EROSION- NEGATIVE FOR INTESTINAL METAPLASIA, DYSPLASIA, OR CARCINOMA Signing Pathologist Direct Phone Line: [phone] signed by Mihaela Carlos MD on 12/16/2020 at 7:29 [id number] obesity, Body mass index 50.0-59.9, adult, Essential hypertension, benignStomachReceived in formalin labeled the patient's name, accession number and " partial gastrectomy" is a 19.0 x 3.7 x 2.3 cm unoriented portion of stomach with a 19.0 cm linear stapleline. The serosa is pérez-pink, smooth and hyperemic. The specimen is opened to reveal a pérez-pink, focally erythematous mucosa that displays normal rugal folds. No discrete lesions are identified. Ductfixing Plumber sections are submitted in A1-A2.JS Dunn, HT (ASCP)Performed.[facility], Department of Pathology, [address] [place] [address] 168[address], [facility], Department of [facility], [address] [place] [address] 74[address], [facility], [facility] of [facility], [address] [place] [address], RXW-Glucose [id number] 09:41:28 Test Item Value Reference Range Interpretation Comments POC-Glucose Meter (test 90 mg/dL 70-110 : TE STED AT [facility] code = 1538) [address] [place] [address], 770 30: Intervention Specialist/Techni giancarlo ID = [id number] for Augustina (student)Yakov Lab Interpretation (test Normal code = 77970-6) [facility] CampusPOCT-GLUCOSE [id number] 09:41:28 Test Item Value Reference Range Interpretation Comments POC-GLUCOSE METER 90 mg/dL 70-110 : TESTED A T [facility] 6720 (BEAKER) (test code = [facility], 153) 71180: Intervention Specialist/Techni giancarlo ID = [id number] for Augustina (student)Yakov POCT-GLUCOSE [id number] 20:44:36 Test Item Value Reference Range Interpretation Comments POC-GLUCOSE METER 98 mg/dL 70-110 : TESTED A T [facility] 6720 (BEAKER) (test code = [facility], 153) 99473: Intervention Specialist/Techni giancarlo ID = [id number] for BETTINA AN LILIAN POCT-GLUCOSE [id number] 16:05:12 Test Item Value Reference Range Interpretation Comments POC-GLUCOSE METER 110 mg/dL 70-110 : TESTED A T [facility] 6720 (BEAKER) (test code = [facility], 153) 18472: Intervention Specialist/Techni giancarlo ID = [id number] for FE LDER, LINDA POCT-GLUCOSE [id number] 11:58:55 Test Item Value Reference Range Interpretation Comments POC-GLUCOSE METER 115 mg/dL 70-110 H : TESTED A T [facility] 6720 (BEAKER) (test code = [facility], 153) 10033: Intervention Specialist/Techni giancarlo ID = [id number] for FE LDER, LINDA POCT-GLUCOSE [id number] 08:18:54 Test Item Value Reference Range Interpretation Comments POC-GLUCOSE METER 119 mg/dL 70-110 H : TESTED A T [facility] 6720 (BEAKER) (test code = [facility]YN [facility], 1538) 12727: Intervention Specialist/Techni giancarlo ID = [id number] for FE LDER, LINDA POCT-GLUCOSE [id number] 16:35:41 Test Item Value Reference Range Interpretation Comments POC-GLUCOSE METER 161 mg/dL 70-110 H : TESTED A T [facility] 6720 (BEAKER) (test code = DEVYN Henry [facility], 1538) 90687: Intervention Specialist/Techni giancarlo ID = [id number] for An Carley mohan Antibody [id number] 09:03:00 Test Item Value Reference Range Interpretation Comments Ab Scrn (test code = 890-4) NEGATIVE PEG. CC: all 3+. [facility] CampusType and screen, [id number] 08:57:00 Test Item Value Reference Range Interpretation Comments ABO/RH AUTOMATED (BEAKER) (test O POSITIVE ECHO 1 code = 2260) [facility] CampusABORH, [id number] 08:48:00 Test Item Value Reference Range Interpretation Comments ABO Grouping (test code = 2588) O Rh Factor (test code = 2589) POS [facility] CampusUrinalysis w/Microscopic + Reflex to Culture 2020-12-07 08:25:24 Test Item Value Reference Range Interpretation Comments Color, UA (test code Yellow = 5778-6) Clarity, UA (test Hazy code = 5767-9) Specific [place], UA 1.019 1.001-1.035 (test code = 5811-5) pH, UA (test code = 5.5 5.0-8.0 5803-2) Protein, UA (test 10 mg/dL Negative A code = 99425-4) Glucose, UA (test 30 mg/dL Negative A code = 365) Ketones, UA (test Negative Negative code = 2514-8) Bilirubin, UA (test Negative Negative code = 32987-4) Blood, UA (test code Negative Negative = 15762-3) Nitrite, UA (test Negative Negative code = 5802-4) Leukocytes, UA (test Negative Negative code = 5799-2) Urobilinogen, UA 0.2 mg/dL 0.2-1.0 (test code = 35745-3) RBC, UA (test code = 1 See_Comment [Autom ated 95949-4) message] The system which generated this result transmit lalito reference range : /HPF. The reference range was not used to interpret this result as normal/abnormal . WBC, UA (test code = 1 See_Comment [Autom ated 5821-4) message] The system which generated this result transmit lalito reference range : /HPF. The reference range was not used to interpret this result as normal/abnormal . Bacteria, UA (test Few code = 02933-4) Mucus (test code = Few 8247-9) Squam Epithel, UA 8 See_Comment [Automate d (test code = 62943-0) messag e] The system which generated this result transmit lalito reference range : /HPF. The reference range was not used to interpret this result as normal/abnormal . Casts (test code = 1 See_Comment [Automat ed 9842-6) message] The system which generated this result transmit lalito reference range : /LPF. The reference range was not used to interpret this result as normal/abnormal . Crystals, Urine (test None Seen code = 89899-7) Specimen Source (test code = 2795) JOSÉ (test code = JOSÉ) Intervention Specialist ID - [auto]Intervention Specialist ID - tech Lab Interpretation Abnormal (test code = 12955-4) [facility] CampusURINALYSIS W/ REFLEX URINE [id number] 08:25:24 Test Item Value Reference Range Interpretation Comments COLOR (BEAKER) (test code = 470) Yellow CLARITY (BEAKER) (test code = 469) Hazy SPECIFIC GRAVITY UA (BEAKER) (test 1.019 1.001-1.035 code = 468) PH UA (BEAKER) (test code = 467) 5.5 5.0-8.0 PROTEIN UA (BEAKER) (test code = 10 mg/dL Negative A 464) GLUCOSE UA (BEAKER) (test code = 30 mg/dL Negative A 365) KETONES UA (BEAKER) (test code = Negative Negative 371) BILIRUBIN UA (BEAKER) (test code = Negative Negative 462) BLOOD UA (BEAKER) (test code = 461) Negative Negative NITRITE UA (BEAKER) (test code = Negative Negative 465) LEUKOCYTE ESTERASE UA (BEAKER) Negative Negative (test code = 466) UROBILINOGEN UA (BEAKER) (test code 0.2 mg/dL 0.2-1.0 = 463) RBC UA (BEAKER) (test code = 519) 1 /HPF WBC UA (BEAKER) (test code = 520) 1 /HPF BACTERIA (BEAKER) (test code = 517) Few MUCUS (BEAKER) (test code = 1574) Few SQUAMOUS EPITHELIAL (BEAKER) (test 8 /HPF code = 516) CASTS (BEAKER) (test code = 1579) 1 /LPF CRYSTALS, URINE (BEAKER) (test code None Seen = 1521) SOURCE(BEAKER) (test code = 2795) Intervention Specialist ID - [auto]Intervention Specialist ID - techPOCT-GLUCOSE [id number] 07:42:55 Test Item Value Reference Range Interpretation Comments POC-GLUCOSE METER 89 mg/dL 70-110 : TESTED A T [facility] 6720 (BEAKER) (test code = DEVYN [place]AP[place], 1538) 52180: Intervention Specialist/Techni giancarlo ID = [id number] for TRACEAnny SUAREZ V SAAD POCT , [id number] 07:35:00 Test Item Value Reference Range Interpretation Comments Test Urine, POC (test code Negative = 4897205) Control line present?, POC (test Yes code = 8237029) Background clear?, POC (test code = Yes 0251214) UPT Cassette Lot #, POC (test code = 1773861 5338148) UPT Cassette Expiration Date, POC 14323489 (test code = 6735143) [facility]2020-12-02 23:44:50 Test Item Value Reference Range Interpretation Comments SARS-COV2/RT-PCR (test Negative Negative code = 25525-4) JOSÉ (test code = JOSÉ) Negative result for this test determines that SARS-CoV-2 RNA was not present in the specimen above the Limit of Detection (LOD). However, Negative results do not preclude SARS-CoV-2 infection and should not be used as the sole basis for treatment or patient management decisions. Negative results must be combined with clinical observations, patient history, and epidemiological information. A false negative result may occur if a specimen is improperly collected, transported, or handled. A false negative result should be considered if patient's recent exposures or clinical presentation indicate that COVID-19 (SARS-CoV-2) is likely and diagnostic tests for other causes of illness are negative. Re-testing should be considered in cases of suspected false negatives. The limit of detection for this assay is 100 copies/mL. This SARS-CoV-2 test is a real-time RT_PCR test intended for the qualitative detection of nucleic acid from SARS-CoV-2 in a nasopharyngeal swab specimen collected from individuals suspected of COVID-19 by their healthcare provider. This test has not been Food and Drug Administration (FDA) cleared or approved. This is a modified version of an approved Emergency Use Authorization (EUA) and is in the process of review by the FDA. Once authorized by the FDA, the issued EUA will be effective until the declaration that circumstances exist justifying the authorization of the emergency use of in vitro diagnostic tests for detection and/or diagnosis of COVID-19 is terminated under Section 564(b)(2) of the Act or the EUA is revoked under Section 564(g) of the Act. Testing was performed using the Perez SARS-CoV-2 assay. Fact Sheet for Healthcare Providers:https://www.delma elizondo/darlene/RT SARS-CoV-2 HCP Fact Sheet 51-965124.pdf Fact Sheet for Healthcare Patients:https://www.milena lewis/darlene/RT SARS-CoV-2 Patient Fact Sheet EN 51-072999F5.pdf Lab Interpretation Normal (test code = 23307-6) [facility])2020-12-02 23:44:50 Test Item Value Reference Range Interpretation Comments SARS-COV2/RT-PCR (test code = Negative Negative 7614007) Negative result for this test determines that SARS-CoV-2 RNA was not present in the specimen above the Limit of Detection (LOD). However, Negative results do not preclude SARS-CoV-2 infection and should not be used as the sole basis for treatment or patient management decisions. Negative results must be combined with clinical observations, patient history, and epidemiological information. A false negative result may occur if a specimen is improperly collected, transported, or handled. A false negative result should be considered if patient's recent exposures or clinical presentation indicate that COVID-19 (SARS-CoV-2) is likely and diagnostic tests for other causes of illness are negative. Re-testing should be considered in cases of suspected false negatives.The limit of detection for this assay is 100 copies/mL.This SARS-CoV-2 test is a real-time RT_PCR test intended for the qualitative detection of nucleic acid from SARS-CoV-2 in a nasopharyngeal swab specimen collected from individuals suspected of COVID-19 by their healthcare provider.This test has not been Food and Drug Administration (FDA) cleared or approved. This is a modified version of an approved Emergency Use Authorization (EUA) and is in the process of review by the FDA. Once authorized by the FDA, the issued EUA will be effective until the declaration that circumstances exist justifying the authorization of the emergency use of in vitro diagnostic tests for detection and/or diagnosis of COVID-19 is terminated under Section 564(b)(2) of the Act or the EUA is revoked under Section 564(g) of the Act.Testing was performed using the Perez SARS-CoV-2 assay.Fact Sheet for Healthcare Providers:https://www.molecular.perez/darlene/RT SARS-CoV-2 HCP Fact Sheet 51- 622125.pdfFact Sheet for Healthcare Patients:https://www.molecular.perez/darlene/RT SARS-CoV-2 Patient Fact Sheet EN 51-480283L2.gxtFlheukqjzs5745-81-98 13:43:43 Test Item Value Reference Range Interpretation Comments Creatinine (test 0.81 mg/dL 0.57-1.25 Specimen sl ightly code = 2160-0) hemolyzed EGFR (test code = 76 mL/min/1.73 [place] [address]-2) NOT ACCURATE CREATININE CLEARANCE IN PREDICTING GLOMERULAR FILTRATION RATE . ESTIMATED GFR I S NOT APPLICABLE FOR DIALYSIS PATIEN JOSÉ (test code = Intervention Specialist ID - JOSÉ) [facility] 13:43:43 Test Item Value Reference Range Interpretation Comments CREATININE (BEAKER) 0.81 mg/dL 0.57-1.25 Specimen slightly (test code = 358) hemolyzed EGFR (BEAKER) (test 76 mL/min/1.73 ESTIMA LALITO GFR IS code = 1092) sq m NOT ACCURATE CREATININE CLEARANCE IN PREDICTING GLOMERULAR FILTRATION RATE . ESTIMATED GFR I S NOT APPLICABLE FOR DIALYSIS PATIEN TS. Intervention Specialist ID - QADKUlezblpfctug5779-19-58 13:43:42 Test Item Value Reference Range Interpretation Comments Sodium (test code = 141 meq/L 210-081 3293-2) Potassium (test code = 4.2 meq/L 3.5-5.1 Speci men 2823-3) slightly hemolyzed Chloride (test code = 105 meq/L 98-107 2074-0) CO2 (test code = 27 meq/L -29 2027-11) JOSÉ (test code = JOSÉ) Intervention Specialist ID - KALYN Lab Interpretation Normal (test code = 49560-0) [facility] CampusBUN2021-09-23 13:43:42 Test Item Value Reference Range Interpretation Comments BUN (test code = 3094-0) 13 mg/dL 09-29 JOSÉ (test code = JOSÉ) Intervention Specialist ID - KALYN Lab Interpretation (test Normal code = 74510-3) [place] 47230021-09-23 13:43:42 Test Item Value Reference Range Interpretation Comments BLOOD UREA NITROGEN (BEAKER) (test 13 mg/dL 09-29 code = 354) Intervention Specialist ID - OSPAZAFHZIORHNCB9233-55-40 13:43:42 Test Item Value Reference Range Interpretation Comments SODIUM (BEAKER) (test 141 meq/L 136-145 code = 381) POTASSIUM (BEAKER) 4.2 meq/L 3.5-5.1 Specimen slightly (test code = 379) hemolyzed CHLORIDE (BEAKER) 105 meq/L 98-107 (test code = 382) CO2 (BEAKER) (test 27 meq/L - code = 355) Intervention Specialist ID - QQJNZmkqfqumda0408-05-89 13:18:20 Test Item Value Reference Range Interpretation Comments Hemoglobin (test code 15.0 See_Comment [Auto mated = 786-4) message] The system which generated this result transmit lalito reference range : 11.2 - 15.7 GM/ DL. The reference range was not u sed to interpret th is result as normal/abnormal . JSOÉ (test code = JOSÉ) Intervention Specialist ID - [id number] Lab Interpretation Normal (test code = 93326-0) [facility]21-[facility] 13:18:20 Test Item Value Reference Range Interpretation Comments HEMOGLOBIN (BEAKER) (test code = 15.0 GM/DL 11.2-15.7 410) Intervention Specialist ID - [id number], CARDIAC PERFUSION MULTIPLE STUDIES, REST AND STRESS 2018-10-13 16:50:00Reason for exam:->ischemic workup for at least moderate pretest prob CADReason for exam:->discharge pendingFINAL REPORT PROCEDURE: Rest/Stress MYOCARDIAL PERFUSION PET with regadenoson\\XA 9\\CPT CODE: [id number]: chest pain, elevated troponin, obesity BMI=42.6HISTORY: Cardiac [...] FROM NONINVASIVE CARDIOLOGY: Pharmacologic stress was by 10- second iv infusion of 0.4 mg of regadenoson. [...] 4. Normal resting LV function. No deterioration withpharmacologic stress. 5. Normal extracardiac tracer distribution. CT images show irregular low density in the liver, consistent with fatty liver. 6. No prior study. NONINVASIVE RISK STRATIFICATION (perJACC.2012;59(9):857-881.) The above findings are considered low risk (<1% annual mortality rate) based on the following criterion:- Normal myocardial perfusion at rest or with stress. Signed: Ajit Dickinson MDReport Verified Date/Time: 10/13/2018 16:50:50 HEMOGLOBIN [id number] 10:13:00 Test Item Value Reference Range Interpretation Comments HEMOGLOBIN A1C (BEAKER) (test code = 5.7 % 4.3-6.1 368) LIPID [id number] 09:53:00 Test Item Value Reference Range Interpretation Comments TRIGLYCERIDES (BEAKER) 245 mg/dL Speci men slightly (test code = 540) hemolyzed CHOLESTEROL (BEAKER) 172 mg/dL Specime n slightly (test code = 631) hemolyzed HDL CHOLESTEROL (BEAKER) 37 mg/dL (test code = 976) LDL CHOLESTEROL 86 mg/dL CALCULATED (BEAKER) (test code = 633) Triglyceride Reference Range: Low Risk <150 Borderline 150-199 High Risk 200- 499 Very High Risk >=500Cholesterol Reference Range: Low Risk <200 Borderline 200-239 High Risk >240HDL Cholesterol Reference Range: Low Risk >=60 High Risk <40LDL Cholesterol Reference Range: Optimal <100 Near Optimal 100-129 Borderline 130-159 High 160-189 Very High >=190LIPASE 2018-10-13 07:09:00 Test Item Value Reference Range Interpretation Comments LIPASE (BEAKER) (test code = 749) 41 U/L 8-78 [id number] 07:09:00 Test Item Value Reference Range Interpretation Comments AMYLASE (BEAKER) (test code = 349) 34 U/L 25-125 BASIC METABOLIC [id number] 07:09:00 Test Item Value Reference Range Interpretation [...] 697) EGFR (BEAKER) (test 84 mL/min/1.73 ESTIMA LALITO GFR IS code = 1092) sq m NOT ACCURATE CREATININE CLEARANCE IN PREDICTING GLOMERULAR FILTRATION RATE . ESTIMATED GFR I S NOT APPLICABLE FOR DIALYSIS PATIEN TS. HEPATIC FUNCTION [id number] 07:09:00 Test Item Value Reference Range Interpretation [...] 6-55 347) CBC W/PLT COUNT & AUTO [id number] 04:57:00 Test Item Value Reference Range Interpretation [...] (test code = 2801) TSH/FREE T4 IF [id number] 14:43:00 Test Item Value Reference Range Interpretation Comments THYROID STIMULATING HORMONE 3.19 uIU/mL 0.35-4.94 (BEAKER) (test code = 772) TROPONIN [id number] 12:27:00 Test Item Value Reference Range Interpretation [...] acidosis, acute neurological disease, and persistent tachyarrhythmia.TROPONIN [id number] 05:37:00 Test Item Value Reference Range Interpretation [...] acute neurological disease, and persistent tachyarrhythmia.CT, CTA, [id number] 04:23:00Reason for exam:->CHEST PAINIs the patient ?->NoWhat is the patient's sedation requirement?->No SedationFINAL REPORT CT, CTA, CHEST INDICATION: CHEST PAINChest pain, back pain COMPARISON: None TECHNIQUE: Arterial phase imaging of the chest was obtained during dynamic infusion of intravenous contrast for purposes of CT angiography. Precontrast images were also obtained. Coronal and sagittal reformatted images provided. 3-D volumetric reformatted images were created at a dedicated workstation. DOSE REDUCTION: Dose modulation, iterative reconstruction, and/or weight-based adjustment of the mA/kV was utilized to reduce the radiation dose to as low as reasonably achievable. VASCULAR FINDINGS:Aortic caliber: Normal.Wolf and lumen: No hematoma or luminal flap.Great vessel origins: No origin stenosis.Atherosclerosis:None.Pulmonary trunk and arteries: Normal calibers. Aortic diameters measure:2.7 cm at the ascending aorta at the level of the pulmonary trunk, 2.5 cm at the mid arch, 2.0 cm at the descending aorta at the level of the pulmonary trunk, and1.8 cm at the hiatus. NONVASCULAR FINDINGS:Chest:Lungs and pleura: Bilateral lower lobe dependent atelectasis. No pleural effusions. No suspicious pulmonary nodules. No pneumothorax. Central airways: Patent.Mediastinum: No mediastinalor hilar adenopathy. The thyroid gland is unremarkable. Esophagus is normal in caliber.Heart and pericardium: Normal. Regional skeleton: No acute abnormalities. Additional findings: No suspicious subcutaneous nodules or fluid collections. No axillary adenopathy. Visualized abdomen: Hepatic steatosis otherwise visualized abdomen is unremarkable. IMPRESSION: Normal course and caliber of the thoracic aorta. No evidence for mural hematoma or dissection. No aneurysmal dilation. No acute intrathoracic abnormality. Hepatic steatosis. Signed: Betsy Cooper [facility] Verified Date/Time: 10/12/2018 04:23:50 PREGNANCY SCREEN, URINE 2018-10-12 03:14:00 Test Item Value Reference Range Interpretation Comments TEST URINE (BEAKER) (test Negative code = 583) TROPONIN [id number] 02:22:00 Test Item Value Reference Range Interpretation [...] acute neurological disease, and persistent tachyarrhythmia.BASIC METABOLIC [id number] 02:16:00 Test Item Value Reference Range Interpretation [...] 697) EGFR (BEAKER) (test 71 mL/min/1.73 ESTIMA LALITO GFR IS code = 1092) sq m NOT ACCURATE CREATININE CLEARANCE IN PREDICTING GLOMERULAR FILTRATION RATE . ESTIMATED GFR I S NOT APPLICABLE FOR DIALYSIS PATIEN TS. HEPATIC FUNCTION [id number] 02:16:00 Test Item Value Reference Range Interpretation [...] 347) hemolyzed CBC W/PLT COUNT & AUTO [id number] 01:54:00 Test Item Value Reference Range Interpretation [...] 2801) RAD, CHEST, PA OR AP, 1 [id number] 00:50:00Reason for exam:->CHEST PAINIs the patient ?->NoShould this be performed at the bedside?->NoFINAL REPORT INDICATION: CHEST PAIN COMPARISON: None TECHNIQUE: Single frontal view of the chest. FINDINGS: Lungs and pleura: Clear lungs. No effusion.Heart and mediastinum: Normalheart size. Unremarkable mediastinal contours.Osseous structures: No acute abnormality.Other: None. IMPRESSION: No acute intrathoracic abnormality. Signed: Karissa Cochran [facility] Verified Date/Time: 10/12/2018 00:50:00 Reading Location: [facility] C013V Neuro Reading Room
[2021-11-29] MEDS ORDERED: FAMOTIDINE 20 MG/2 ML VIAL IV ONE (08:54)
[2021-11-29] MEDS ORDERED: ONDANSETRON 4 MG/2 ML VIAL ONE (08:54)
[2021-11-29] MEDS ORDERED: KETOROLAC 30 MG/ML INJ ONE (08:54)
[2021-11-29 09:00] LABS: Urine Blood Negative (Negative); Urine Glucose Negative (Negative); Urine Protein Negative (Negative); Urine pH 5.5 (5.0-7.0)
[2021-11-29 09:08] LABS: Absolute Lymphocytes (CBC) 2.8 K/uL (0.7-4.9); Hematocrit 40.2 % (36.0-45.0); Lymphocytes % 23.4 % (15.3-44.8); MCV 85.4 fL (80-100); MPV 9.8 fL (7.6-11.3); RBC Red Blood Cell Count 4.71 M/uL (3.86-4.86)
[2021-11-29 09:25] LABS: Albumin 3.3 g/dL (3.4-5.0); Bilirubin Total 0.5 mg/dL (0.2-1.0); Potassium 3.6 mmol/L (3.5-5.1); Protein, Total 7.2 g/dL (6.4-8.2)
--- NOTE | 2021-11-29 09:46 | RAD REPORT ---
EXAM DESCRIPTION: US - Abdomen Exam Limited - 11/29/2021 9:16 am CLINICAL HISTORY: ABD PAIN COMPARISON: No comparisons FINDINGS: Gallbladder size is normal with no wall thickening or pericholecystic fluid. There are num erous punctate gallstones layering on the dependent portion of the gallbladder wall. This creates den se posterior acoustic shadowing. No mass of the gallbladder identifiable. No common duct stone or biliary tree dilatation identified. IMPRESSION: Multiple multiple punctate gallstones are seen in a normal size gallbladder. No wall thi ckening or pericholecystic fluid. No biliary tree abnormality.
--- NOTE | 2021-11-29 10:02 | EDPHYS ---
Physician Documentation [facility] Name: Teresa Cuevas Age: 46 yrs Sex: Female : 1975 Arrival Date: 11/29/2021 Time: 08:38 Bed 8 Private MD: ED Physician Ivy Smith HPI: 11/29 14:25 This 46 yrs old Female presents to ER via Ambulatory with complaints of jmm Abdominal Pain. 14:25 Onset: The symptoms/episode began/occurred acutely, this morning. The symptoms do not jmm radiate. Associated signs and symptoms: Pertinent positives: nausea. The symptoms are described as achy, sharp. Modifying factors: The symptoms are alleviated by nothing, the symptoms are aggravated by nothing. The patient has not experienced similar symptoms in the past. Historical: - Allergies: 08:44 No Known Allergies; ss - Home Meds: 11:28 Cardizem CD 120 mg Oral cp24 1 cap once daily [Active]; losartan 25 mg Oral tab 1 tab jh6 once daily [Active]; - PMHx: 08:38 Hypertension; ss - Immunization history:: Adult Immunizations up to date, Client reports receiving the 2nd dose of the Covid vaccine. - Social history:: Smoking status: Patient denies any tobacco usage or history of. ROS: 14:25 Constitutional: Negative for fever, chills, and weight loss, Eyes: Negative for injury, jmm pain, redness, and discharge, ENT: Negative for injury, pain, and discharge, Neck: Negative for injury, pain, and swelling, Cardiovascular: Negative for chest pain, palpitations, and edema, Respiratory: Negative for shortness of breath, cough, wheezing, and pleuritic chest pain. 14:25 Abdomen/GI: Positive for abdominal pain. 14:25 All other systems are negative. Exam: 14:25 Head/Face: atraumatic. Eyes: EOMI, no conjunctival erythema appreciated ENT: Moist jmm Mucus Membranes Neck: Trachea midline, Supple Chest/axilla: Normal chest wall appearance and motion. Cardiovascular: Regular rate and rhythm. No edema appreciated Respiratory: Normal respirations, no respiratory distress appreciated 14:25 Back: Normal ROM Skin: General appearance color normal MS/ Extremity: Moves all extremities, no obvious deformities appreciated, no edema noted to the lower extremities Neuro: Awake and alert Psych: Behavior is normal, Mood is normal, Patient is cooperative and pleasant 14:25 Constitutional: The patient appears in no acute distress, alert, awake. 14:25 Abdomen/GI: Inspection: abdomen appears normal, Bowel sounds: normal, Palpation: soft, mild abdominal tenderness, in the right upper quadrant. Vital Signs: 08:45 BP 143 / 87; Pulse 79; Resp 15; Pulse Ox 100% ; Pain 8/10; jl7 08:51 BP 143 / 87; Pulse 79; Resp 17; Temp 97.7(O); Pulse Ox 100% on R/A; Weight 94.8 kg; ss Height 5 ft. 11 in. (180.34 cm); Pain 8/10; 09:00 Pain 3/10; jl7 09:54 BP 134 / 88; Pulse 63; Resp 15; Pulse Ox 100% ; Pain 3/10; jl7 08:51 Body Mass Index 29.15 (94.80 kg, 180.34 cm) ss MDM: 08:39 Patient medically screened. sd2 10:01 Data reviewed: vital signs, nurses notes. Counseling: I had a detailed discussion with [facility] the patient and/or guardian regarding: the historical points, exam findings, and any diagnostic results supporting the discharge/admit diagnosis, the need for outpatient follow up, to return to the emergency department if symptoms worsen or persist or if there are any questions or concerns that arise at home. 10:17 Counseling: I had a detailed discussion with the patient and/or guardian regarding:. ED [facility] course: Dr. Muhammad at bedside. Recommends admission. Will take patient to OR tomorrow morning. Request abx, clear liquids, npo after midnight. . 11/29 08:44 Order name: CBC with Diff; Complete Time: 09:17 [facility] 11/29 08:44 Order name: CMP; Complete Time: 09:27 [facility] 11/29 08:44 Order name: Lipase; Complete Time: 09: [facility] 11/29 09:01 Order name: Urine Dipstick-Ancillary; Complete Time: 09:11 [facility] 11/29 09:06 Order name: Urine --Ancillary (enter results); Complete Time: 09:17 11/29 10:16 Order name: SARS RAPID; Complete Time: 10:48 [facility] 11/29 10:48 Order name: Basic Metabolic Panel [facility] 11/29 10:48 Order name: Basic Metabolic Panel [facility] 11/29 10:48 Order name: CBC with Automated Diff EDMS 11/29 10:48 Order name: CBC with Automated Diff MS 11/29 10:48 Order name: Lipase EDMS 11/29 10:48 Order name: Lipase EDMD 11/29 10:48 Order name: Liver (Hepatic) Function EDMD 11/29 10:48 Order name: Liver (Hepatic) Function [facility] 11/29 08:44 Order name: IV Saline Lock; Complete Time: 09:19 [facility] 11/29 08:44 Order name: Labs collected and sent; Complete Time: 09: [facility] 11/29 08:44 Order name: Urine Dipstick-Ancillary (obtain specimen); Complete Time: 09: [facility] 11/29 08:44 Order name: Urine Test (obtain specimen); Complete Time: 09: [facility] 11/29 08:45 Order name: US Abdomen Limited; Complete Time: 09:48 [facility] 11/29 10:48 Order name: NPO EDMS Administered Medications: 08:55 Drug: Ketorolac 30 mg Route: IVP; Site: right antecubital; jl7 09:00 Follow up: Pain 05/19 Adult; Response: No adverse reaction; Pain is decreased jl7 09:02 Drug: Pepcid (famotidine) 20 mg Route: IVP; Site: right antecubital; jl7 09:52 Follow up: Response: No adverse reaction jl7 09:19 Drug: Zofran (Ondansetron) 4 mg Route: IVP; Site: right antecubital; jl7 09:52 Follow up: Response: No adverse reaction jl7 10:06 Drug: Augmentin (Amoxicillin-Clavulanate) 875 mg Route: PO; jh6 10:30 Follow up: Response: No adverse reaction jl7 10:29 Drug: Zosyn (piperacillin-tazobactam) 3.375 grams Route: IVPB; Infused Over: 60 mins; jl7 Site: right antecubital; 11:31 Follow up: Response: No adverse reaction; IV Status: Infusion continued jl7 Disposition Summary: 11/29/21 10:19 Hospitalization Ordered Hospitalization Status: Observation barbara Provider: Marques Muhammad Location: Telemetry/MedSurg (observation)(11/29/21 10:19) jmm Condition: Stable(11/29/21 10:19) jmm Problem: new jmm Symptoms: have improved jmm Bed/Room Type: Standard m Room Assignment: 426(11/29/21 11:14) ss Diagnosis - Acute Cholecysitis jmm Forms: - Medication Reconciliation Form jmm - SBAR form jmm Signatures: Dispatcher [employer] EDMS Marquis Vasquez PA PA jmm Estefany Couch RN RN ss Remi Mckeon RN RN jl7 Ne Fatima RN RN jh6 Ivy Smith MD MD sd2 Corrections: (The following items were deleted from the chart) 10:16 10:02 Home jmm jmm 10:16 10:02 Stable jmm jmm 10:16 10:02 Other cholelithiasis without obstruction jmm jmm 11:14 10:19 jmm ss
--- NOTE | 2021-11-29 10:02 | ER ---
Nurse's Notes [facility] Name: Teresa Cuevas Age: 46 yrs Sex: Female : 1975 Arrival Date: 11/29/2021 Time: 08:38 Bed 8 Private MD: Diagnosis: Acute Cholecysitis Presentation: 11/29 08:44 Chief complaint: Patient states: Severe epigastric pain that is now radiating towards ss RUQ that began at 0600 this am. Coronavirus screen: Client denies travel out of the [place] in the last 14 days. Ebola Screen: Patient denies exposure to infectious person. Patient denies travel to an Ebola-affected area in the 21 days before illness onset. Initial Sepsis Screen: Does the patient meet any 2 criteria? No. Patient's initial sepsis screen is negative. Does the patient have a suspected source of infection? No. Patient's initial sepsis screen is negative. Risk Assessment: Do you want to hurt yourself or someone else? Patient reports no desire to harm self or others. Onset of symptoms was November 29, 2021. 08:44 Method Of Arrival: Ambulatory ss 08:44 Acuity: VICTORINA 3 ss Historical: - Allergies: 08:44 No Known Allergies; ss - Home Meds: 11:28 Cardizem CD 120 mg Oral cp24 1 cap once daily [Active]; losartan 25 mg Oral tab 1 tab jh6 once daily [Active]; - PMHx: 08:38 Hypertension; ss - Immunization history:: Adult Immunizations up to date, Client reports receiving the 2nd dose of the Covid vaccine. - Social history:: Smoking status: Patient denies any tobacco usage or history of. Screenin:45 Abuse screen: Denies threats or abuse. Denies injuries from another. Nutritional jl7 screening: No deficits noted. Tuberculosis screening: No symptoms or risk factors identified. Fall Risk IV access (20 points). Total Willson Fall Scale indicates No Risk (0-24 pts). Assessment: 08:45 General: Appears in no apparent distress. uncomfortable, Behavior is calm, cooperative, jl7 appropriate for age. Pain: Complains of pain in epigastric area and right upper quadrant Pain currently is 8 out of 10 on a pain scale. Quality of pain is described as aching, Pain began 3 hours ago. Neuro: [place]co Agitation-Sedation Scale (RASS): 0 - Alert and Calm Level of Consciousness is awake, alert, obeys commands, Oriented to person, place, time, situation. Cardiovascular: Patient's skin is warm and dry. Respiratory: Airway is patent Respiratory effort is even, unlabored, Respiratory pattern is regular, symmetrical. GI: Abdomen is round non-distended, Reports upper abdominal pain, Patient currently denies constipation, diarrhea, nausea, vomiting. Derm: Skin is pink, warm \T\ dry. 09:50 Reassessment: Patient appears in no apparent distress at this time. Patient and/or jl7 family updated on plan of care and expected duration. Pain level reassessed. Patient is alert, oriented x 3, equal unlabored respirations, skin warm/dry/pink. pain rated 3/10 at this time. Patient states feeling better. 10:00 Reassessment: JS Cho at bedside discussing results and POC. jl7 10:12 Reassessment: Dr. Muhammad at bedside. Pt will be discharged once surgeon is done jl7 assessing pt. 10:30 Reassessment: Dr. Muhammad POC will be to take pt to surgery tomorrow in the morning. jl7 11:29 GI: Abd is non tender. 6 Vital Signs: 08:45 BP 143 / 87; Pulse 79; Resp 15; Pulse Ox 100% ; Pain 8/10; jl7 08:51 BP 143 / 87; Pulse 79; Resp 17; Temp 97.7(O); Pulse Ox 100% on R/A; Weight 94.8 kg; ss Height 5 ft. 11 in. (180.34 cm); Pain 8/10; 09:00 Pain 3/10; jl7 09:54 BP 134 / 88; Pulse 63; Resp 15; Pulse Ox 100% ; Pain 3/10; jl7 08:51 Body Mass Index 29.15 (94.80 kg, 180.34 cm) ED Course: 08:38 Patient arrived in ED. ss 08:39 Ivy Smith MD is Attending Physician. sd2 08:39 Marquis Vasquez PA is PHCP. [facility] 08:40 Remi Mckeon RN is Primary Nurse. jl7 08:44 Triage completed. ss 08:44 Arm band placed on right wrist. ss 08:45 Patient has correct armband on for positive identification. Pulse ox on. NIBP on. jl7 08:45 Initial lab(s) drawn, by me, sent to lab. Inserted saline lock: 22 gauge in right jl7 antecubital area, using aseptic technique. Blood collected. 09:02 Urine collected: clean catch specimen, clear. mb4 09:18 US Abdomen Limited In Process Unspecified. EDMS 10:02 Marques Muhammad MD is Referral Physician. jmm 10:18 Marques Muhammad MD is Hospitalizing Provider. [facility] 11:28 No provider procedures requiring assistance completed. [facility] 11:39 Patient admitted, IV remains in place. intact, No redness/swelling at site. jl7 Administered Medications: 08:55 Drug: Ketorolac 30 mg Route: IVP; Site: right antecubital; jl7 09:00 Follow up: Pain 3/10 Adult; Response: No adverse reaction; Pain is decreased jl7 09:02 Drug: Pepcid (famotidine) 20 mg Route: IVP; Site: right antecubital; jl7 09:52 Follow up: Response: No adverse reaction jl7 09:19 Drug: Zofran (Ondansetron) 4 mg Route: IVP; Site: right antecubital; jl7 09:52 Follow up: Response: No adverse reaction jl7 10:06 Drug: Augmentin (Amoxicillin-Clavulanate) 875 mg Route: PO; jh6 10:30 Follow up: Response: No adverse reaction jl7 10:29 Drug: Zosyn (piperacillin-tazobactam) 3.375 grams Route: IVPB; Infused Over: 60 mins; jl7 Site: right antecubital; 11:31 Follow up: Response: No adverse reaction; IV Status: Infusion continued jl7 Medication: 08:45 VIS not applicable for this client. jl7 Outcome: 10:02 Discharge ordered by . barbaram 10:19 Decision to Hospitalize by Provider. micaela 11:28 Admitted to Tele accompanied by tech, via wheelchair, room 426, Report called to [facility] sven 11:28 Condition: good 11:28 Discharge instructions given to 11:28 Instructed on the need for admit. 11:40 Patient left the ED. 7 Signatures: Dispatcher [employer] EDMS Marquis Vasquez PA PA jmm Smirch, Shelby, RN RN ss Remi Mckeon, RN RN jl7 Elvira Tee mb4 Ne Fatima RN RN jh6 Ivy Smith MD MD sd2
[2021-11-29] MEDS ORDERED: AMOX/K CLAV 875 MG TAB ONE (10:14)
[2021-11-29] MEDS ORDERED: PIPERACIL/TAZO 3.375 GM VIAL IV ONE (10:33)
[2021-11-29] MEDS ORDERED: NA CHLORIDE 0.9% 100 ML ONE (10:33)
[2021-11-29 10:39] LABS: SARS-CoV-2 Antigen Rapid Res Negative (Negative)
[2021-11-29] MEDS ORDERED: ONDANSETRON 4 MG/2 ML VIAL IV PRN (10:44)
[2021-11-29] MEDS ORDERED: ACETAMINOPHEN 500 MG TAB PO PRN (10:44)
[2021-11-29] MEDS ORDERED: MORPHINE 4 MG/ML SYR IV PRN (10:44)
[2021-11-29] MEDS ORDERED: CODEINE 30MG/APAP 300MG TAB PO PRN (12:30)
[2021-11-29] MEDS: D5 0.45 NS 1,000 ML IV SCH ×2 (14:47→22:17)
[2021-11-29 15:00] VITALS: BMI 39.6
[2021-11-29] MEDS: PIPER TAZO 3.375 GM in NA CHLORIDE 0.9% 100 ML IV SCH (17:00)
--- NOTE | 2021-11-29 22:37 | HP ---
Date of Admission: 11/29/2021 Diagnosis: Acute cholecystitis, symptomatic cholelithiasis. History Of Present Illness: This is a case of a 46-year-old patient who comes to us with epigastric upper quadrant pain radiating to the back with nausea and vomiting. 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 She ate some tamales, went home, but then during the day, s he stated the pain got worse to the point that she has to come back to the ER. When she was seen in the ER, she was diagnosed as symptomatic cholelithiasis and was given some Tylenol that alleviated th e pain, but is still having some pain in that area. She denies any dysuria, hematuria, hematochezia, or melena. Denies any recent traveling out of the country. Denies any family member sick at home. She had an attack like this in the last several weeks, even though she suspects she may have some is sues with the gallbladder. She was trying not to do anything about it, but even watching her diet, i t just got to that situation. Past Medical History: Hypertension. Medications: Lopressor. Allergies: NONE. Past Surgical History: Gastric stapling. Social History: She does not smoke. She does not drink alcohol. Physical Examination: General: The patient is awake and alert. Eyes: Pupils are equal and reactive. Anicteric. Neck: Supple. Chest: Clear. Heart: S1, S2. Abdomen: Epigastric right upper quadrant tenderness with Boateng sign positive. Breasts: Deferred Rectal: Deferred. Genitalia: Deferred. Extremities: Good capillary refill. Neuro: Cranial nerves 2-12 grossly within normal limits. Laboratory Data: Blood work shows WBC count of 11.9, hemoglobin of 13, and platelets of 219. Potass ium 3.6, total bilirubin of 0.5, lipase 285, AST 94, ALT 45. Ultrasound of the gallbladder interpret ed by Dr. Castro as multiple gallstones. Impression And Plan: This is a case of a 46-year-old patient who comes to us with epigastric right u pper quadrant pain and diagnosed with symptomatic cholelithiasis and acute cholecystitis with Boateng sign positive. The benefits, alternatives, and risks of laparoscopic possible open cholecystectomy w ere fully explained to the patient, which include, but not limited to infection, bleeding, damage to adjacent structures, anesthesia complication, choledocholithiasis, bile leak, pancreatitis, myocardia l infarction, and . She also understands this may not relieve her symptoms. She might need mor e than one surgical intervention, she understood. The patient will be admitted to the hospital with IV antibiotics and bowel rest and then proceed accordingly. MARA/KEITH Voice ID: [id number]
[2021-11-30] MEDS: PIPER TAZO 3.375 GM in NA CHLORIDE 0.9% 100 ML IV SCH ×2 (01:09→09:00)
[2021-11-30] MEDS: D5 0.45 NS 1,000 ML IV SCH ×2 (03:00→11:00)
[2021-11-30 03:50] LABS: Absolute Lymphocytes (CBC) 2.5 K/uL (0.7-4.9); Hematocrit 37.7 % (36.0-45.0); Lymphocytes % 31.9 % (15.3-44.8); MCV 85.7 fL (80-100); MPV 10.1 fL (7.6-11.3)
[2021-11-30 03:57] LABS: Albumin 2.7 g/dL (3.4-5.0); Bilirubin Direct 0.1 mg/dL (0-0.2); Bilirubin Total 0.7 mg/dL (0.2-1.0); Potassium 4.1 mmol/L (3.5-5.1); Protein, Total 5.9 g/dL (6.4-8.2)
[2021-11-30] MEDS ORDERED: BUPIVACAINE 0.5% PF 10 ML VIAL ONE (07:22)
[2021-11-30] MEDS ORDERED: Ringers Lactate 1,000 ML IV ONE (08:09)
[2021-11-30] MEDS ORDERED: dexAMETHasone 10 MG/ML VIAL ONE (08:35)
[2021-11-30] MEDS ORDERED: MIDAZOLAM HCL 2 MG/2 ML INJ ONE (08:35)
[2021-11-30] MEDS ORDERED: FENTANYL CITR 100 MCG/2 ML ONE (08:35)
[2021-11-30] MEDS ORDERED: propofoL 200 MG/20 ML VIAL IV ONE (08:35)
[2021-11-30] MEDS ORDERED: ONDANSETRON 4 MG/2 ML VIAL ONE (08:35)
[2021-11-30] MEDS ORDERED: ROCURONIUM 50 MG/5 ML VIAL IV ONE (08:35)
[2021-11-30] MEDS ORDERED: LIDOCAINE 2% MPF 5 ML VIAL ONE (08:36)
[2021-11-30] MEDS ORDERED: KETOROLAC 30 MG/ML INJ ONE (08:36)
[2021-11-30] MEDS ORDERED: LABETALOL 20 MG/4ML SYRINGE IV ONE (09:27)
[2021-11-30] MEDS ORDERED: HYDROCODONE/APAP 5/325 MG TAB PO PRN (09:51)
[2021-11-30] MEDS ORDERED: GLYCOPYRROLATE 0.2 MG/ML SYR ONE (09:51)
[2021-11-30] MEDS ORDERED: NEOSTIGMINE 1 MG/ML -10 ML VIAL ONE (09:51)
--- NOTE | 2021-11-30 09:53 | P.BOP ---
Preoperative diagnosis: cute cholecystitis, Symptomatic cholelithiasis, h/o gastric stapling Postoperative diagnosis: same, umbilical hernia, intrabdominal adhesions Primary procedure: 1. Laparoscopic cholecystectomy Secondary procedure: 2. open repair of umbilical hernia Other procedure(s): 3. Lap lysis of adhesions Estimated blood loss: <10cc Specimen: gb, hernia sac Findings: see dicta Anesthesia: General Complications: None Transferred to: Recovery Room Condition: Good
[2021-11-30] MEDS: MEPERIDINE HCL 25 MG/ML SYR ONE ×2 (09:58→10:22)
[2021-11-30 10:10] VITALS: O2SAT 100
[2021-11-30] MEDS ORDERED: PROMETHAZINE INJ 25 MG/ML AMP ONE (10:29)
[2021-11-30 13:35] VITALS: TEMP 97.7
[2021-11-30 14:37] VITALS: BP 134/88
--- NOTE | 2021-11-30 20:49 | OP ---
Date of Procedure: 11/30/2021 Surgeon: Marques Muhammad MD Preoperative Diagnoses: Acute cholecystitis, symptomatic cholelithiasis, and history of gastric stap ling. Postoperative Diagnoses: Acute cholecystitis, symptomatic cholelithiasis, history of gastric staplin g, umbilical hernia, and intraabdominal adhesions. Procedures: 1.Laparoscopic cholecystectomy. 2.Open repair of umbilical hernia. 3.Laparoscopic lysis of adhesions. Estimated Blood Loss: Less than 10 cc. Specimen: Gallbladder and hernia sac. Findings: Inflamed and distended gallbladder. Intraabdominal adhesions. The patient has history of gastric stapling and also patient has umbilical hernia with omental incarceration. Anesthesia: General plus local. Complications: None. Indications: This is a case of a 46-year-old patient who comes to the hospital with acute abdominal pain and admitted for pain and cholecystitis and symptomatic cholelithiasis. The patient was started on bowel rest, IV antibiotics and scheduled for surgical intervention after she was fully explained the benefits, alternatives, and risks of laparoscopic possible open cholecystectomy, which include, b ut are not limited to infection, bleeding, damage to adjacent structures, anesthesia complication, ch oledocholithiasis, bile leak, pancreatitis, [place], and . She also understands this may not relieve her symptoms. She might need more than one surgical intervention. She understood and signed consen t. Procedure In Detail: The patient was brought to the operating room and placed in supine position. A nesthesia was done without complication. Abdominal area was prepped and draped in a sterile fashion. Marcaine 0.5% was injected for local anesthetic followed by sharp incision of the skin in the infra umbilical region. Incision was carried down to subcutaneous tissue. We noticed the patient to have umbilical hernia. Umbilical hernia sac was opened. The omentum was encountered and seemed to be via ble so after removing some of the attachments, we proceeded to reduce the omentum back after fully in specting. Hernia sac was removed, we placed Vicryl #1 inside the fascia. Hira trocar was carefull y introduced. Pneumoperitoneum was obtained. I placed 3 more trocars of 5 mm each in the epigastric and upper quadrant area. We noticed immediately patient has adhesions in the epigastric and right u pper quadrant, probably related to previous gastric stapling, unexpected in this case. We also notic ed the patient's gallbladder to be distended and inflamed gallbladder wall and in order for me to gra b the gallbladder, I have to deflate that. So under direct visualization, we placed an Endo needle i n the gallbladder and aspirated partially. Needle was removed. Once again under direct visualizatio n, grasper was placed in the fundus of the gallbladder. Another grasper was placed in the infundibul um after doing the lysis of adhesions, to allow me to do this movement since they were blocking the g allbladder view. The lysis of adhesions was done with the help of Endo Saba connected to Bovie cau terizer and all these adhesions were inspected for no bleeding after they were lysed. We moved back to the gallbladder and the gallbladder was retracted in the inferolateral fashion exposing the triang le of [place] and obtaining critical view. Cystic duct and cystic artery were clearly isolated and elizabeth ed circumferentially and the connection between those and the gallbladder was clearly identified. I proceeded to ligate those by using at least 3 clips proximal and 1 clip distal with ligation in middl e. Same was done with the cystic artery. No bile leak. No bleeding. The gallbladder was removed f rom liver using Bovie cauterizer and removed from abdominal cavity using Endo Catch through the umbil ical incision. The area was inspected once again. No bile leak. No bleeding. At that moment, I pr oceeded to inspect the area of the lysis of adhesions and there was no bleeding and we proceeded to r emove the trocars under direct vision. Deflated pneumoperitoneum, closed the fascia and umbilical he rnia with #1 Vicryl. Irrigated subcutaneous tissue, closed that with 3-0 chromic and skin in a subcu ticular fashion with 3-0 chromic and Steri-Strips on top. Sponge count and instrument counts were co rrect. Patient tolerated the procedure well. Patient was sent to recovery in stable condition. MARA/KEITH Voice ID: [id number] Report ID: [id number]
--- NOTE | 2021-11-30 20:54 | DS ---
Date of Discharge: 11/30/2021 Diagnoses: Acute cholecystitis, symptomatic cholelithiasis, umbilical hernia, and intraabdominal adh esions. Procedures: Laparoscopic cholecystectomy, laparoscopic lysis of adhesions, and open repair of umbili yvrose hernia. Disposition: Home, if she tolerates diet. Discharge Followup: Follow up in my office in 1 week. Call for appointment at [phone]. Keep area dry for 48 hours, then may shower. Keep Steri-Strips intact. MARA/KEITH Voice ID: [id number] Report ID: [id number]
== END 2021-11-30 15:23 | disposition home or self-care (01) ==
LOC: ER 08:35 → ERHOLD 10:44 → 4TH 11:28
PROVIDERS: ADMIT Surgery; ATTEND Surgery
PROC: 0WQF0ZZ Repair Abdominal Wall, Open Approach (ICD-10-PCS; 2021-11-30)
PROC: 0FT44ZZ Resection of Gallbladder, Percutaneous Endoscopic Approach (ICD-10-PCS; principal; 2021-11-30 08:45)
DX: K80.00 Calculus of gallbladder with acute cholecystitis without obstruction (principal); K42.9 Umbilical hernia without obstruction or gangrene; K66.0 Peritoneal adhesions (postprocedural) (postinfection); I10 Essential (primary) hypertension; Z98.84 Bariatric surgery status; Z79.899 Other long term (current) drug therapy
CPT/HCPCS: 47562; 49585; 96365; 85025 ×2; 80048; 36415; 81025; 80076; 88302; 88304; 81003; 83690 ×2; 80053; 76705; 94010; 96375; 99285; 87811; J2704; J2710; J2550; J2543 ×4; J2001; J2250; J3010; J1100; J2175; J7799 ×3; J7120; J2405 ×2; G0378